=== PATIENT | female | born 1975 | race Caucasian/White ===

== ENCOUNTER 2016-09-30 15:57 | Emergency (ER) | payer OTHER ==
[~2016-09-30] VITALS: Ht 175.3 cm; Wt 126.0 kg
[~2016-09-30 15:57] MED LIST: BUPR-79 PO; DICL50TA3 PO; ESCI1TAB10 PO; HYDR25TA5 PO; NARA2.5T2 PO; NRN800 PO; TPM/50 PO
[2016-09-30 15:59] VITALS: TEMP 36.4; Ht 175.3 cm; Wt 126.0 kg
[2016-09-30] MEDS ORDERED: PROP20TA67 PO (16:13)
[2016-09-30] MEDS ORDERED: BENZ100C84 PO (16:13)
[2016-09-30] MEDS ORDERED: LEVO1TAB33 PO (16:13)
[2016-09-30] MEDS ORDERED: METHYLPREDNISOLONE 125 MG VIAL IV STA (16:26)
[2016-09-30] MEDS ORDERED: SODIUM CHLORIDE 0.9% 1000ML 1,000 ML IV ONE (16:30)
[2016-09-30] MEDS ORDERED: ALBUT/IPRATROP 3MG/0.5MG NEB 3 ML VIAL INH ONE (16:30)
--- NOTE | 2016-09-30 16:44 | DIAGNOSTIC IMAGING REPORT ---
TWO VIEW CHEST CLINICAL HISTORY: Cough and dyspnea. FINDINGS: PA and lateral chest radiographs are compared to study dated 01/19/2015 and correlated with chest CT dated 09/14/2016. The cardiomediastinal silhouette is unremarkable. The lungs and pleural spaces are clear. There is no pneumothorax. The bony thorax appears intact. IMPRESSION: No active disease in the chest. Electronically signed by: Zeus Stephen M.D. 09/30/2016 4:42 PM Dictated Date/Time: 09/30/2016 4:42 PM
[2016-09-30 17:16] LABS: BASO % 0.8 %; BASO ABS # 0.04 K/uL (0-0.2); COMPLETE YES; EOS % 7.4 %; IG% 0.4 %; LYMPH % 18.4 %; LYMPH ABS # 0.94 K/uL (1.2-3.4); MEAN CELL VOLUME 82.7 fL (80-100); MEAN CORPUSCULAR HEMOGLOBIN 29.5 pg (25-34); MEAN CORPUSCULAR HGB CONC 35.7 g/dl (32-36); MEAN PLATELET VOLUME 10.5 fL (7.4-10.4); MONO % 14.7 %; NEUT % 58.3 %; PLATELET COUNT 324 K/uL (130-400); RED BLOOD COUNT 5.08 M/uL (4.2-5.4); WHITE BLOOD COUNT 5.11 K/uL (4.8-10.8)
[2016-09-30 17:32] LABS: BUN/CREATININE RATIO 15.9 (10-20); CALCIUM 7.9 mg/dl (8.5-10.1); CREATININE 0.68 mg/dl (0.60-1.20); POTASSIUM 3.4 mmol/L (3.5-5.1)
[2016-09-30 17:35] LABS: ALB/GLOB RATIO 0.9 (0.9-2)
--- NOTE | 2016-09-30 18:47 | EMERGENCY ROOM VISIT NOTE ---
ED Visit Note First contact with patient: 16:10 This Patient was discussed with the physician Inseam Trimming Machine Operator, Antonino Villavicencio PA-C. The pertinent historical and physical exam findings were confirmed. I agree with the studies ordered and with the interpretations of these studies. I agree with the disposition and care plan.
[2016-09-30] MEDS ORDERED: PRED50TA PO (18:56)
[2016-09-30 19:39] VITALS: BP 116/55; PULSE 73; O2SAT 98
--- NOTE | 2016-09-30 23:31 | EMERGENCY ROOM VISIT NOTE ---
History First contact with patient: 16:10 Chief Complaint: RESPIRATORY PROBLEMS Stated Complaint: PNEUMONIA, DIFFICULTY BREATHING Nursing Triage Summary: SOB, throat feels tight. Denies asthma history. Was diagnosed on saturday with pneumonia and was put on meds. Cough with yellow sputum. Denies CP. History of Present Illness The patient is a 40 year old female who presents to the Emergency Room with complaints of chest tightness and shortness of breath. The patient was diagnosed with pneumonia 2 days ago as an outpatient. She was started on Levaquin, Ventolin, and Tessalon Perles. The patient has been taking her medications as prescribed. She states that today she has had a worsening cough with yellow sputum. No fevers or chills. She does not have distinct chest pain or pressure. She has been eating, drinking, and using the bathroom as normal. She rates her current discomfort a 7/10. Review of Systems More than 10 systems were reviewed and otherwise negative with the exception of history of present illness. Past Medical/Surgical History Medical Problems: (1) Benign hypertension (2) DEPRESSIVE DISORDER NEC (3) DIAB TOM WO COMP TYPE II OR NOS/NOT UNCONTROLLED Family History No pertinent family history Social History Smoking Status: Current Every Day Smoker Alcohol Use: none Drug Use: none Marital Status: Housing Status: lives with family Occupation Status: unemployed Current/Historical Medications Scheduled Benzonatate (Tessalon Perles), 1 CAP PO TID Bupropion (Wellbutrin Sr), 300 MG PO DAILY Diclofenac (Voltaren), 50 MG PO UD Escitalopram Oxalate (Lexapro), 20 MG PO DAILY Gabapentin (Gabapentin), 800 MG PO TID Hydrochlorothiazide (Hydrochlorothiazide), 25 MG PO DAILY Levofloxacin (Levaquin), 1 TAB PO DAILY Prednisone (Prednisone), 50 MG PO DAILY Propranolol (Inderal), 1 TAB PO QID Topiramate (Topamax), 100 MG PO BID Allergies Coded Allergies: No Known Allergies (Verified , 01/19/15) Physical Exam Vital Signs Date Time Temp Pulse Resp B/P Pulse Ox O2 Delivery O2 Flow Rate FiO2 09/30/16 19:39 73 18 116/55 98 09/30/16 17:38 76 24 119/76 98 Room Air 09/30/16 16:09 77 142/93 95 09/30/16 16:04 96 Room Air 09/30/16 15:59 36.4 89 18 96 Room Air Pain Rating (0-10): 1.0 Physical Exam VITALS: Vitals are noted on the nurse's note and reviewed by myself. Vital signs stable. GENERAL: Well-developed, well-nourished, white female, who is in no acute distress and resting comfortably. Patient is cooperative with the examination. HEAD: Normocephalic atraumatic. EARS: External ear normal. External auditory canals clear, tympanic membranes pearly rosado without erythema or effusion bilaterally. EYES: Pupils equal round and reactive to light and accommodation. Conjunctivae without injection, sclerae without icterus. Extraocular movements intact. NOSE: Patent, turbinates without inflammation or discharge. MOUTH: Mucous membranes moist. Tonsils are not enlarged. Pharynx without erythema, blood, or exudate. Uvula midline. Airway patent. NECK: Supple without nuchal rigidity. No lymphadenopathy. No thyromegaly. Cervical spine is nontender. HEART: Regular rate and rhythm without murmurs gallops or rubs. LUNGS: Scant rhonchi appreciated in the right side mahajan. No distinct crackles appreciated. ABDOMEN: Positive normal bowel sounds x 4. Soft, nontender, without masses or organomegaly. No guarding or rebound tenderness. MUSCULOSKELETAL: No muscle atrophy, erythema, or edema noted. Full range of motion without joint tenderness in all extremities. Medical Decision & Procedures ER Provider Diagnostic Interpretation: TWO VIEW CHEST CLINICAL HISTORY: Cough and dyspnea. FINDINGS: PA and lateral chest radiographs are compared to study dated 01/19/2015 and correlated with chest CT dated 09/14/2016. The cardiomediastinal silhouette is unremarkable. The lungs and pleural spaces are clear. There is no pneumothorax. The bony thorax appears intact. IMPRESSION: No active disease in the chest. Laboratory Results 09/30/16 16:45 Red Blood Count 5.08, Mean Corpuscular Volume 82.7, Mean Corpuscular Hemoglobin 29.5, Mean Corpuscular Hemoglobin Concent 35.7, Mean Platelet Volume 10.5, Neutrophils (%) (Auto) 58.3, Lymphocytes (%) (Auto) 18.4, Monocytes (%) (Auto) 14.7, Eosinophils (%) (Auto) 7.4, Basophils (%) (Auto) 0.8, Neutrophils # (Auto ) 2.98, Lymphocytes # (Auto) 0.94, Monocytes # (Auto) 0.75, Eosinophils # (Auto ) 0.38, Basophils # (Auto) 0.04 09/30/16 16:45 Test 09/30/16 16:45 09/30/16 17:05 09/30/16 17:44 White Blood Count 5.11 K/uL (4.8-10.8) Red Blood Count 5.08 M/uL (4.2-5.4) Hemoglobin 15.0 g/dL (12.0-16.0) Hematocrit 42.0 % (37-47) Mean Corpuscular Volume 82.7 fL (80-100) Mean Corpuscular Hemoglobin 29.5 pg (25-34) Mean Corpuscular Hemoglobin Concent 35.7 g/dl (32-36) Platelet Count 324 K/uL (130-400) Mean Platelet Volume 10.5 fL (7.4-10.4) Neutrophils (%) (Auto) 58.3 % Lymphocytes (%) (Auto) 18.4 % Monocytes (%) (Auto) 14.7 % Eosinophils (%) (Auto) 7.4 % Basophils (%) (Auto) 0.8 % Neutrophils # (Auto) 2.98 K/uL (1.4-6.5) Lymphocytes # (Auto) 0.94 K/uL (1.2-3.4) Monocytes # (Auto) 0.75 K/uL (0.11-0.59) Eosinophils # (Auto) 0.38 K/uL (0-0.5) Basophils # (Auto) 0.04 K/uL (0-0.2) RDW Standard Deviation 38.4 fL (36.4-46.3) RDW Coefficient of Variation 12.7 % (11.5-14.5) Immature Granulocyte % (Auto) 0.4 % Immature Granulocyte # (Auto) 0.02 K/uL (0.00-0.02) D-Dimer 200 ug/L FEU (0-500) Anion Gap 13.0 mmol/L (3-11) Est Creatinine Clear Calc Drug Dose 158.1 ml/min Estimated GFR () 127.7 Estimated GFR (Non- 110.2 BUN/Creatinine Ratio 15.9 (10-20) Calcium Level 7.9 mg/dl (8.5-10.1) Total Bilirubin 0.3 mg/dl (0.2-1) Aspartate Amino Transf (AST/SGOT) 14 U/L (15-37) Alanine Aminotransferase (ALT/SGPT) 21 U/L (12-78) Alkaline Phosphatase 96 U/L (45-117) Total Protein 7.0 gm/dl (6.4-8.2) Albumin 3.3 gm/dl (3.4-5.0) Globulin 3.7 gm/dl (2.5-4.0) Albumin/Globulin Ratio 0.9 (0.9-2) Bedside Lactic Acid Venous 0.72 mmol/L (0.90-1.70) Bedside Troponin I 0.000 ng/ml (0-0.045) Medications Administered Medications (Trade) Dose Ordered Sig/Martin Route Start Time Stop Time Status Last Admin Dose Admin Sodium Chloride (Nss 1000ml) 1,000 ml @ 999 mls/hr Q1H1M ONCE IV 09/30/16 16:30 09/30/16 17:30 DC 09/30/16 16:30 999 MLS/HR Methylprednisolone Sodium Succinate (Solu-Medrol IV) 125 mg NOW STAT IV 09/30/16 16:26 09/30/16 16:29 DC 09/30/16 16:48 125 MG Albuterol/ Ipratropium (Duoneb) 3 ml NOW ONCE INH 09/30/16 16:30 09/30/16 16:31 DC 09/30/16 16:43 3 ML ED Course Physical exam and history were performed. Nursing notes and EMR were reviewed. Patient appears to have worsening chest tightness and shortness of breath after an outpatient diagnosis of pneumonia. On examination the patient does not appear toxic, although she does have some right-sided rhonchi. IV access was established and labs were obtained. The patient was gently hydrated with normal saline and was given 125 mg IV Solu-Medrol. She was also given a DuoNeb treatment here in the department. Chest x-ray was performed. She was placed on a ekg monitor. Her EKG was normal sinus rhythm at 71 bpm without ischemia or ectopy. The patient's blood work as above and was reviewed. She does not have a significant elevated white blood cell count, anemia, bandemia, or gross electrolyte imbalance. Lipase and transaminases are nondiagnostic. Troponin is negative. D-dimer is also negative. Chest x-ray does not show acute findings. Her remaining blood work is fairly unremarkable. The patient was reevaluated multiple times throughout the course of her stay. She had significant improvement of her breathing and chest tightness after the DuoNeb and Solu-Medrol. The case was discussed with my attending physician, Dr. Wade, who also and apparently evaluated the patient. We feel that she is stable for discharge home. I will provide her a short course of steroids, as this appeared to have helped her the most. I did discuss the possible side effects of taking this medication with Levaquin, and instructed her to avoid excess physical activity for the next one to 2 weeks. I also recommended the patient follow-up with her primary care physician this week for further management. She was otherwise invited back to the ER with any new, worsening, or concerning symptoms. The patient was pleased with plan of care and rated her discomfort a 2/10 at the time of departure. The chart was completed utilizing [employer] Speech Voice Recognition Software. Grammatical errors, random word insertions, pronoun errors, and incomplete sentences are an occasional consequence of this system due to software limitations, ambient noise, and hardware issues. Any formal questions or concerns about the content, text, or information contained within the body of this dictation should be directly addressed to the provider for clarification. . Medical Decision Differential diagnosis: Etiologies such as infections, reactive airway disease, pneumonia, pneumothorax , COPD, CHF, cardiac ischemia, pulmonary embolism, musculoskeletal, gastrointestinal, as well as others were entertained. Impression Primary Impression: Acute bronchitis Departure Information Dispostion Home / Self-Care Condition GOOD Prescriptions Prednisone (Prednisone) 50 Mg Tab 50 MG PO DAILY for 4 Days, #4 TAB Prov: Antonino Villavicencio PA-C 09/30/16 Forms HOME CARE DOCUMENTATION FORM, IMPORTANT VISIT INFORMATION Patient Instructions My [facility] Additional Instructions You were seen and evaluated today on an emergency basis only. This is not a substitute for, or an effort to provide, complete comprehensive medical care. It is not possible to recognize and treat all injuries or illnesses in a single emergency department visit. For this reason it is recommended that you followup with your primary care physician later this week for ongoing care and evaluation. Continue your medications as previously prescribed. Take prednisone 50 mg daily starting tomorrow. Avoid excess physical activity while on Levaquin and prednisone. You are welcome to return to the emergency department anytime with new, worsening, or concerning symptoms.
[2016-11-06] MEDS ORDERED: TOPI200T14 PO (08:24)
[2017-01-09] MEDS ORDERED: PRLSR20 PO (13:14)
[2017-01-14] MEDS ORDERED: DICL50TA3 PO (14:59)
[2017-01-14] MEDS ORDERED: CRAN500C2 PO (14:59)
[2017-01-14] MEDS ORDERED: MELA1TAB9 PO (14:59)
[2017-01-30] MEDS ORDERED: POTA10CA28 PO (13:22)
== END 2016-09-30 19:42 | disposition home or self-care (01) ==
LOC: C.EDB 15:57 → C.EDC 19:42
DX: J20.9 Acute bronchitis, unspecified (principal); I10 Essential (primary) hypertension; F32.9 Major depressive disorder, single episode, unspecified; E11.9 Type 2 diabetes mellitus without complications; F17.210 Nicotine dependence, cigarettes, uncomplicated; Z79.899 Other long term (current) drug therapy

== ENCOUNTER 2016-11-20 10:07 | Inpatient (IN) | payer OTHER ==
[~2016-11-20] VITALS: Ht 175.3 cm; Wt 122.8 kg
[~2016-11-20 10:07] MED LIST changes: -NARA2.5T2 PO; +TOPI200T14 PO; -TPM/50 PO
--- NOTE | 2016-11-20 10:37 | EMERGENCY ROOM VISIT NOTE ---
History Report prepared by Malcolm: Safia Colon Under the Supervision of: Dr. Zeus Abreu M.D. First contact with patient: 10:20 Chief Complaint: MENTAL HEALTH EVALUATION Stated Complaint: SUICIDAL History of Present Illness The patient is a 41 year old female who presents to the Emergency Room with complaints of persistent suicidal ideation that began this past week. Per the patient's , the patient cheated on him last week and states that they have been fighting over the incident. He states that he noticed that the patient has been acting strange since then and hasn't been talking right. The patient's states that the patient always carried a gun with her, and he states that he took the gun from her several days ago. He states that the patient did not realize that the gun was missing until recently. The patient's additionally notes that the patient has had increased tension with her family which has attributed to her depression and suicidal ideation. The patient admits to suicidal ideation, stating that she would use a firearm to harm herself. She notes a history of anxiety and depression. The patient notes a history of hypertension, but denies any history of diabetes or thyroid problems. She notes that she is on medication for both her depression and hypertension. The patient's states that the patient made the decision to come here and the patient states that she was additionally encouraged by her therapist at [facility]. Source of History: patient Onset: this past week Position: other (global) Quality: other (suicidal ideation) Timing: other (persistent) Modifying Factors (Worsening): other (family tension, cheating on ) Review of Systems See HPI for pertinent positives & negatives. A total of 10 systems reviewed and were otherwise negative. Past Medical & Surgical Medical Problems: (1) Benign hypertension (2) DEPRESSIVE DISORDER NEC (3) DIAB TOM WO COMP TYPE II OR NOS/NOT UNCONTROLLED Family History Cancer Diabetes mellitus FH: heart disease FHx: lung disease Hypertension Kidney disease Kidney stones Social History Smoking Status: Current Every Day Smoker Alcohol Use: none Drug Use: none Marital Status: Housing Status: lives with family Occupation Status: unemployed Current/Historical Medications Scheduled Bupropion Hcl (Wellbutrin Xl), 1 TAB PO DAILY Diclofenac (Voltaren), 50 MG PO DAILY Escitalopram Oxalate (Lexapro), 20 MG PO DAILY Gabapentin (Gabapentin), 800 MG PO TID Hydrochlorothiazide (Hydrochlorothiazide), 25 MG PO DAILY Naratriptan Hcl (Amerge), MG PO DAILY Topiramate (Topamax), 200 MG PO DAILY Allergies Coded Allergies: No Known Allergies (Verified , 11/20/16) Physical Exam Vital Signs Date Time Temp Pulse Resp B/P Pulse Ox O2 Delivery O2 Flow Rate FiO2 11/20/16 12:21 62 17 113/90 97 Room Air 11/20/16 10:09 36.6 74 18 144/90 97 Room Air Physical Exam GENERAL: Patient is in no acute distress. HEENT: No acute trauma, normocephalic atraumatic, mucous membranes moist, no nasal congestion, no scleral icterus. NECK: No stridor, no adenopathy, no meningismus, trachea is midline. LUNGS: Clear to auscultation bilaterally, no wheeze, no rhonchi, breath sounds equal. HEART: Without murmurs gallops or rubs, regular rate and rhythm. ABDOMEN: Soft, nontender, bowel sounds positive, no hernias, no peritonitis. EXTREMITIES: No cyanosis or edema, full range of motion of all the joints without pain or difficulty, no signs for acute trauma. NEUROLOGIC: Oriented x 3, no acute motor or sensory deficits, no focal weakness. SKIN: No rash, no jaundice, no diaphoresis. PSYCH: Cooperative, voluntary, admits to suicidal ideation with a plan to kill herself with a gun. Medical Decision & Procedures Laboratory Results 11/20/16 10:52 11/20/16 10:52 Test 11/20/16 10:25 11/20/16 10:52 11/20/16 11:20 Urine Test NEG (NEG) Red Blood Count 4.93 M/uL (4.2-5.4) Mean Corpuscular Volume 82.8 fL (80-100) Mean Corpuscular Hemoglobin 28.8 pg (25-34) Mean Corpuscular Hemoglobin Concent 34.8 g/dl (32-36) RDW Standard Deviation 39.3 fL (36.4-46.3) RDW Coefficient of Variation 13.1 % (11.5-14.5) Mean Platelet Volume 10.0 fL (7.4-10.4) Anion Gap 11.0 mmol/L (3-11) Est Creatinine Clear Calc Drug Dose 129.5 ml/min Estimated GFR () 105.3 Estimated GFR (Non- 90.8 BUN/Creatinine Ratio 16.0 (10-20) Calcium Level 8.6 mg/dl (8.5-10.1) Total Bilirubin 0.6 mg/dl (0.2-1) Aspartate Amino Transf (AST/SGOT) 18 U/L (15-37) Alanine Aminotransferase (ALT/SGPT) 31 U/L (12-78) Alkaline Phosphatase 88 U/L (45-117) Total Protein 7.3 gm/dl (6.4-8.2) Albumin 3.6 gm/dl (3.4-5.0) Globulin 3.7 gm/dl (2.5-4.0) Albumin/Globulin Ratio 1.0 (0.9-2) Thyroid Stimulating Hormone (TSH) 0.388 uIu/ml (0.300-4.500) Salicylates Level < 1.7 mg/dl (2.8-20) Acetaminophen Level < 2 ug/ml (10-30) Ethyl Alcohol mg/dL < 3.0 mg/dl (0-3) Urine Color DK YELLOW Urine Appearance CLOUDY (CLEAR) Urine pH 6.5 (4.5-7.5) Urine Specific [place] 1.020 (1.000-1.030) Urine Protein NEG (NEG) Urine Glucose (UA) NEG (NEG) Urine Ketones NEG (NEG) Urine Occult Blood 2+ (NEG) Urine Nitrite NEG (NEG) Urine Bilirubin NEG (NEG) Urine Urobilinogen NEG (NEG) Urine Leukocyte Esterase TRACE (NEG) Urine WBC (Auto) 1-5 /hpf (0-5) Urine RBC (Auto) 5-10 /hpf (0-4) Urine Hyaline Casts (Auto) 1-5 /lpf (0-5) Urine Epithelial Cells (Auto) >30 /lpf (0-5) Urine Bacteria (Auto) NEG (NEG) Urine Opiates Screen NEG (NEG) Urine Methadone, Qualitative NEG (NEG) Urine Barbiturates NEG (NEG) Urine Phencyclidine (PCP) Level NEG (NEG) Ur Amphetamine/Methamphetamine NEG (NEG) MDMA (Ecstasy) Screen POS (NEG) Urine Benzodiazepines Screen NEG (NEG) Urine Cocaine Metabolite NEG (NEG) Urine Marijuana (THC) NEG (NEG) Laboratory results reviewed by me. ED Course 1021: The patient was evaluated in room A8. A complete history and physical exam was performed. 1158: The patient is medically clear to be evaluated further. 1236: Per the psych community case manager, the patient has been accepted to [facility] for further evaluation. Medical Decision The patient is a 41 year old female who presents to the ED with complaints of suicidal ideation. Differential diagnoses considered include suicidal ideation , thyroid disorder, situational depression, electrolyte imbalance, drug or alcohol abuse. There is no leukocytosis or concerning anemia. No significant electrolyte abnormality, kidney failure, hepatitis. The patient appears to be in a euthyroid state. A urinalysis does not suggest infection. testing is negative. Aspirin, Tylenol and alcohol level levels are all undetectable. Urine tox shows possible ecstasy. The patient was felt to be medically clear for a psychiatric evaluation. She was seen by our psychiatric community case manager. The patient will be brought into the hospital at this facility. She will be a voluntary admission and will be admitted to the psychiatry floor. She has been cooperative during her ER stay. Impression Primary Impression: Suicidal ideation Scribe Attestation The scribe's documentation has been prepared under my direction and personally reviewed by me in its entirety. I confirm that the note above accurately reflects all work, treatment, procedures, and medical decision making performed by me. Departure Information Dispostion Mental Health Acute Care Referrals No Doctor, Assigned (PCP)
[2016-11-20] MEDS ORDERED: LXP/20 PO (11:03)
[2016-11-20 11:14] LABS: HEMATOCRIT 40.8 % (37-47); MEAN CELL VOLUME 82.8 fL (80-100); MEAN CORPUSCULAR HEMOGLOBIN 28.8 pg (25-34); MEAN CORPUSCULAR HGB CONC 34.8 g/dl (32-36); PLATELET COUNT 321 K/uL (130-400); RED BLOOD COUNT 4.93 M/uL (4.2-5.4); WHITE BLOOD COUNT 5.39 K/uL (4.8-10.8)
[2016-11-20 11:37] LABS: URINE APPEARANCE CLOUDY (CLEAR); URINE BILIRUBIN NEG (NEG); URINE COLOR DK YELLOW; URINE EPITHELIAL CELL AUTO >30 /lpf (0-5); URINE NITRITE NEG (NEG); URINE PH 6.5 (4.5-7.5); UROBILINOGEN NEG (NEG); ZZUR CULT IF INDIC CLEAN CATCH NO
[2016-11-20 11:37] LABS: CALCIUM 8.6 mg/dl (8.5-10.1); CREATININE 0.81 mg/dl (0.60-1.20); POTASSIUM 3.2 mmol/L (3.5-5.1)
[2016-11-20 11:39] LABS: ACETAMINOPHEN < 2 ug/ml (10-30)
[2016-11-20 11:42] LABS: MANUAL MICROSCOPIC REQUIRED? NO; REVIEW REQ? NO
[2016-11-20 11:47] LABS: THYROID STIMULATING HORMONE 0.388 uIu/ml (0.300-4.500)
[2016-11-20 12:07] LABS: BENZODIAZEPINE, URINE NEG (NEG); COCAINE,URINE NEG (NEG); PHENCYCLIDINE, URINE NEG (NEG)
[2016-11-20] MEDS ORDERED: MAGNESIUM HYDROXIDE SUSP 30 ML UDC PO PRN (12:45)
[2016-11-20] MEDS ORDERED: hydrOXYzine HCL 25 MG TAB PO PRN ×2 (12:45)
[2016-11-20] MEDS ORDERED: BISMUTH SUBSALICYLATE PER ML OMNICELL CHARGE PO PRN (12:45)
[2016-11-20] MEDS ORDERED: ALUMINUM/MAGNESIUM SUSP 30 ML UDC PO PRN (12:45)
[2016-11-20] MEDS ORDERED: SODIUM CHLORIDE 0.65% NA SOLN 45 ML (OCEAN) PRN (12:45)
[2016-11-20 13:29] VITALS: O2SAT 97
[2016-11-20] MEDS ORDERED: DICL50TA3 PO (14:14)
[2016-11-20] MEDS ORDERED: NARA2.5T2 PO (14:24)
[2016-11-20] MEDS ORDERED: BUPRTAB51 PO (14:25)
[2016-11-20 14:26] VITALS: BP 133/85; PULSE 74; TEMP 36.6; Ht 175.3 cm; Wt 122.8 kg
--- NOTE | 2016-11-20 15:01 | HISTORY & PHYSICAL EXAMINATION ---
DATE OF ADMISSION: 11/20/2016 IDENTIFYING DATA: Moni Maria is a 41-year-old woman from [place], [place], admitted to our unit voluntarily with acute depression related to recently having an affair, telling her and him wanting her to move out. Information is gathered from the patient and considered to be reliable. CHIEF COMPLAINT: "I cheated on my ." HISTORY OF PRESENT ILLNESS: Moni Maria is a 41-year-old woman who has long been in treatment with Dr. Victor Manuel Jackson at [facility] for depression and anxiety. She began seeing him after her father when she was 20 and says "has been on meds ever since." She has most recently been on Lexapro and Wellbutrin and felt that that was generally keeping her stable for the most part. Unfortunately, about 2 weeks or more ago, the patient had an affair. She had the affair with someone that she had a previous affair with when she was from her years ago. After she had the affair at this time, she decided to tell her , which occurred about 2 weeks ago. He was extremely outraged and told her to get out. She also told her 2 other children because she was sure that they heard her demand that she get out. Since then, her older children have not been talking with her. She has been trying to talk with her , but he has not been engaging and continues to be quite angry. She states that she has no idea why she pursued the affair other than saying that her mother, with whom she has chronically poor relationship, recently "chose a man over me again." She also says that she has no girlfriends and she has recently had no one to talk to and apparently this other man, who is somebody that she was talking to. She says her self-esteem has been very low and that contributes to her not wanting to have girlfriends, as her in the past has been attracted to her girlfriends who are more slender and prettier than she is. She adamantly denies that he, however, has ever had an affair. Last weekend, she admits that she and her had been arguing. She had gone to her purse to look for her gun. She has always carried a gun and has a permit to carry concealed. She could not find it, got upset that she had lost it and went to ask her if he had seen it. He indicated that he had, had taken it and locked it up. She lied to him at that point saying that she was not suicidal, but just worried that she had lost it, when in reality she had gone looking for it because she had thought about killing herself. She has tried to continue to work. Yesterday, she had tried to talk with her again. She was trying to explain her feelings, but he misperceived her statements as blaming him for the affair saying she had no one to talk to. He kept asking why she would do it and she said that she could not give him that answer. Today, she tried to go to work, but could not get through the day, could not stop crying. She also had an appointment with her therapist, Jennifer Crawley, recently who recommended inpatient as well. She has only seen Jennifer Crawley once. Her mood on average prior to the affair had been rated 6/10, but since having the affair and revealing it to her , she states her mood is of 1/10. At the time I see the patient, she is acutely depressed, hanging her head in her hands and crying. She admits to suicidal thoughts with a plan to use a gun. She reports her sleep has been disturbed. "I used to sleep a lot" and now sleeps 3-4 hours of broken sleep per night. Her appetite has been down and she says she did not eat at all for 4 days, but now has started to eat about 1 meal per day. Her anxiety is generally okay, although has a history of more significant anxiety in the past. She denies any auditory or visual hallucinations. She admits to cutting her thigh, on Saturday, in order to feel the same pain that she had inflicted on her with the affair. She denies any discrete episodes of euphoric mood, sleeplessness or pleasure seeking behaviors that would be congruent with a bipolar disorder. CURRENT MEDICATIONS: 1. Wellbutrin-XL 300 mg daily. 2. Lexapro 20 mg daily. 3. Gabapentin 800 mg t.i.d. 4. Hydrochlorothiazide 25 mg daily. 5. Topamax 200 mg daily. 6. Diclofenac 50 mg daily for migraines. 7. Emerge 2.5 mg daily p.r.n. migraine. PAST PSYCHIATRIC HISTORY: As per the [facility], she has seen Dr. Jackson since about the age of 20 or 21. She only saw Jennifer Crawley for therapy once. She has never been hospitalized for mental health reasons. She has never made a suicide attempt. There is no evidence of violence to others in the last 6 months, but evidence of violence to self by way of cutting her thigh on Saturday. ACCESS TO GUNS: Yes, locked, recently changed the combination. PRIOR MEDICATION TRIALS: The patient says she has been tried on lots of meds, but cannot remember what. ALLERGIES: NKDA. PAST MEDICAL HISTORY: 1. Class 3 obesity with a BMI of 40.0. 2. Migraines. 3. Lumbar degenerative disk disease, status post multiple surgeries. 4. Hypertension. 5. LMP -- started today. FAMILY HISTORY: Positive for mother with bipolar, PTSD, depression and anxiety. She denies a family history for substance use issues or suicide. Medically, maternal and paternal grandmothers have diabetes and brother is obese, but she denies family history for hypertension, cardiovascular disease or dyslipidemia. SUBSTANCE USE HISTORY: The patient currently smokes 1 pack of cigarettes daily. She will consume 1 cup of coffee per day. Her alcohol use is described as "rare," which means about 2 times per year. She denies the use of street drugs, organic substances, inhalant, abuse of over the counter medicines or prescription medicines now or at any time in the past. SOCIAL HISTORY: The patient grew up locally. She was raised by her mother and father. She has 1 brother and 1 sister. She is a high school graduate and went on to attend about 2 years of college, but did not graduate. 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 She has been to her since 1997. They have 3 children, ages 20, 18 and 13. Her oldest is in college at [employer]. She does not consider herself to be a spiritual individual. There are no legal concerns. Psychological trauma history is denied. MENTAL STATUS EXAMINATION: Morbidly obese woman dressed in hospital gowns, with dyed purple hair, wearing glasses. She is seated during the interview and leans her elbows on her knees and hangs her head crying. Eye contact therefore, is minimal. Motor behavior is significant for mild agitation. Speech is of normal rate, volume, and tone. Affect is tearful. Mood is depressed. Thought process is organized and goal directed. She denies thought disorder in the form of hallucinations or delusions. She endorses suicidal thoughts with a plan to shoot herself, but denies homicidal ideation. Today, she is fully oriented. Memory functions are intact. Fund of knowledge is intact. Intelligence is estimated to be average. Insight and judgment are impaired. VITAL SIGNS: Temperature 36.6, pulse 62, respirations 17, blood pressure 113/90, and pulse ox 97% on room air. LABORATORIES: 1. CBC -- within normal limits. 2. Chem profile -- within normal limits with the exception of potassium low at 3.2. 3. TSH -- within normal limits at 0.388. 4. Toxicology -- positive for MDMA, which is usually a false positive. 5. Urinalysis -- positive for 2+ occult blood, trace leukocyte esterase, RBCs and epithelials. 6. Urine test -- negative. REVIEW OF SYSTEMS: The patient recently completed a course of antifungal for a fungal laryngitis. She has healing superficial cuts to her left thigh. She also reports numbness and tingling in her left toe, status post lumbar back surgery. A minimum of 10 systems has been reviewed and otherwise found to be negative. PHYSICAL EXAMINATION: Exam performed by Dr. Abreu in the Emergency Room has been reviewed and accepted for our purposes here in the mental health unit. PATIENT'S STRENGTHS AND NEEDS: 1. Strengths -- willingness to engage in treatment and love of her family. 2. Needs -- to learn additional healthy coping strategies. RISK ASSESSMENT: 1. Risk factors -- , medical problems, chronic mental illness, acute stress of affair, and anxiety. 2. Protective factors -- has secured guns, is employed, has children in the home, and no history of suicide attempts or hospitalizations. IMPRESSION: A 41-year-old woman admitted to the hospital with an acute depression subsequent to having an affair and telling her . He has been very angry and not sure how they are going to proceed. She believes that her medications had been keeping her stable up until that time and at this point, I am going to recommend we continue those and work on her stressors from the therapy point of view. We will encourage her to have a family meeting with her to process and how they will move forward, although she is hesitant to do that at this point. We will coordinate with her outpatient providers, Dr. Jackson and Jennifer Crawley. At this time, however, she requires inpatient mental health treatment due to the severity of her condition and the risk for self-harm if discharged. DIAGNOSES: 1. Major depressive disorder, recurrent, severe, without psychotic features. 2. Generalized anxiety disorder. 3. Morbid obesity with a BMI of 40.0. 4. Hypertension. 5. Migraines. PLAN: Has been reviewed with Dr. Nette Brower. 1. Depression. a. Continue Wellbutrin-XL 300 mg daily and Lexapro 20 mg daily. b. Obtain records from and coordinate care with Dr. Jackson and Jennifer Crawley. c. Family meeting. d. Q. 15 minute checks for safety. e. Encourage participation in group and individual counseling. f. Assist the patient to learn and utilize additional healthy coping strategies. g. We will need to confirm with that guns have been secured. 2. Migraines. a. Continue home medications. 3. Hypertension. a. Continue home medications and monitor BP. 4. Morbid obesity. a. Consider dietary consult for food choices and weight loss. b. Encourage physical activity. INITIAL HOSPITAL CARE: [id number].
[2016-11-20] MEDS: GABAPENTIN 800 MG TAB PO SCH (21:30)
[2016-11-20] MEDS ORDERED: NURSING VERBAL MED ORDER ONE (22:00)
[2016-11-20] MEDS ORDERED: TOPI100T20 PO (22:03)
[2016-11-20] MEDS: TOPIRAMATE 100 MG TAB PO SCH (22:05)
[2016-11-21 06:37] VITALS: BP_SYST 116; BP_SYST 138; BP_DIAS 76; BP_DIAS 88; PULSE 74; PULSE 80; TEMP 36.9
[2016-11-21] MEDS: BuPROPion SR 150 MG TABCR PO SCH (07:46)
[2016-11-21] MEDS: HYDROCHLOROTHIAZIDE 25 MG TAB PO SCH (07:46)
[2016-11-21] MEDS: TOPIRAMATE 100 MG TAB PO SCH ×2 (07:46→21:56)
[2016-11-21] MEDS: ESCITALOPRAM OXALATE 20 MG TAB PO SCH (07:46)
[2016-11-21] MEDS: GABAPENTIN 800 MG TAB PO SCH ×3 (07:46→21:56)
[2016-11-21] MEDS: NICOTINE POLACRILEX 2 MG GUM MT PRN ×2 (08:47→18:06)
[2016-11-21] MEDS ORDERED: TOPIRAMATE 100 MG TAB PO SCH (09:00)
[2016-11-21] MEDS: ACETAMINOPHEN 325 MG TAB PO PRN ×2 (11:06→16:08)
--- NOTE | 2016-11-21 13:16 | Psychiatric Progress Notes ---
Progress Note Date of Service Nov 21, 2016. Interval History Moni Maria is a 41-year-old woman from [place], [place], admitted to our unit voluntarily with suicidality and self-inflicted lacerations related to recently having an affair, telling her and him wanting her to move out. Chief Complaint "Good, a little down". Subjective Patient was seen & assessed interval progress reviewed with Treatment Team. Staff report she submitted a 72 hour notice requesting to withdrawal from treatment. She says she is going to groups and they have been helpful, particularly the one on anger management, stating that her has anger problems and she wants to pass the information on to him. She denies suicidality today, stating that she did have suicidal thoughts multiple times in the week prior to admission, and admits to thoughts to shoot herself and access to a gun, which she keeps in her purse. She states that her has already taken all of the guns, locked them in the safe, and changed the combination so that she won't have access. She says her mood is much better today after talking to her yesterday, saying he now wants her to come back home and they will try to work things out. A have a meeting scheduled with the social services counselor today. She is now wanting to expedite her discharge, stating that she thought she was "just coming to the ER for a med change." She reports she has been functioning so poorly at work, that she is making errors, and they encouraged her to get treatment. She says that yesterday "I was extremely emotional, it was a bad day." She did not eat at all yesterday, but ate breakfast today. She had good sleep last night, and is planning to attend groups today. She has a family meeting scheduled with her today, and is hoping to be discharged in time to attend her outpatient appointments on Saturday. He is improved from admission. Sleep Information Total Hours of Sleep: 7.25 Meal Information Percent of Breakfast Consumed: 100 Percent of Dinner Consumed: 0 Mental Status Exam During interview pt is: alert and oriented, cooperative Appearance: appropriately dressed, appropriately groomed, other (short hair dyed purple, obese, wearing glasses, nose ring, tattoo on left hand, long manicured fingernails.) Eye contact is: good Motor behavior is: no abnormal motor movements Speech: normal in rate, rhythm & volume Affect: anxious Mood is: other ("good, a little down") Thought process: goal directed Thought content: preoccupation (with discharge), reality based without delusions, other (minimizes suicidality and presenting symptoms) Suicidal thought are: denied Homicidal thoughts are: denied Hallucinations: denies auditory, denies visual Cognition: memory grossly intact, attention grossly intact, language grossly intact Intelligence estimated to be: average Insight: impaired Judgement: impaired Impression RISK ASSESSMENT: 1. Risk factors -- , medical problems, chronic mental illness, acute stress of affair, anxiety, SI with plan and access to the means, selg injury by cutting. 2. Protective factors -- has secured guns, is employed, has children in the home, and no history of suicide attempts or hospitalizations. IMPRESSION: A 41-year-old woman admitted to the hospital with an acute depression subsequent to having an affair and telling her . He has been very angry and not sure how they are going to proceed. She believes that her medications had been keeping her stable up until that time and at this point, I am going to recommend we continue those and work on her stressors from the therapy point of view. We will encourage her to have a family meeting with her to process and how they will move forward, although she is hesitant to do that at this point. We will coordinate with her outpatient providers, Dr. Jackson and Jennifer Crawley. At this time, however, she requires inpatient mental health treatment due to the severity of her condition and the risk for self-harm if discharged. DIAGNOSES: 1. Major depressive disorder, recurrent, severe, without psychotic features. 2. Generalized anxiety disorder. 3. Morbid obesity with a BMI of 40.0. 4. Hypertension. 5. Migraines. Plan (1) Suicidal ideation 15 minute checks for safety. Encourage participation in group and individual counseling. Assist the patient to learn and utilize additional healthy coping strategies. We will need to confirm with that guns have been secured. 11/21 - denying SI, submitted 72 hour notice, family meeting with today. (2) Depression Continue Wellbutrin-XL 300 mg daily and Lexapro 20 mg daily. Obtain records from and coordinate care with Dr. Jackson and Jennifer Crawley. (3) Obesity Consider dietary consult for food choices and weight loss. Encourage physical activity. (4) Migraine Continue home medications. (5) Benign hypertension Continue home medications and monitor BP. (6) Nicotine abuse Smoking cessation information offered and refused. Gum and patch prn for cravings. Discharge / Aftercare Planning Primary Care Physician: Name: Ander Gomez Phone Number: [phone] Psychiatrist: Name: Dr Monte Phone Number: [phone] Date of Appointment: Nov 23, 2016 Time of Appointment: 10:00 Therapist: Name: Jennifer Mccauley at [facility] Phone Number: Date of Appointment: Nov 23, 2016 Time of Appointment: 4:00 Payroll Examiner: Name: trey Visit Code E&M Code: [id number] Data Vital Signs Last 24 Hrs: Date Time Temp Pulse Resp B/P Pulse Ox O2 Delivery O2 Flow Rate FiO2 11/21/16 06:37 36.9 74 18 116/76 80 138/88 11/20/16 14:26 36.6 74 16 133/85 11/20/16 13:29 62 17 113/90 97 Meds Administered Last 24 Hrs: Meds Administered (Past 24Hrs) Medications (Trade) Dose Ordered Sig/Martin Route Start Time Stop Time Status Last Admin Dose Admin Acetaminophen (Tylenol Tab) 650 mg Q4H PRN PO 11/20/16 12:45 12/20/16 12:44 11/21/16 11:06 650 MG Bupropion HCl (Wellbutrin-Sr Tab) 300 mg DAILY PO 11/21/16 09:00 12/21/16 08:59 11/21/16 07:46 300 MG Escitalopram Oxalate (Lexapro Tab) 20 mg DAILY PO 11/21/16 09:00 12/21/16 08:59 11/21/16 07:46 20 MG Gabapentin (Neurontin Tab) 800 mg TID PO 11/20/16 22:00 12/20/16 21:59 11/21/16 07:46 800 MG Hydrochlorothiazide (Hydrochlorothiazide Tab) 25 mg DAILY PO 11/21/16 09:00 12/21/16 08:59 11/21/16 07:46 25 MG Nicotine Polacrilex (Nicorette 2MG Gum) 1 piece Q1H PRN MT 11/20/16 15:00 12/20/16 14:59 11/21/16 08:47 1 PIECE Topiramate (Topamax Tab) 100 mg BID PO 11/20/16 22:15 12/20/16 22:14 11/21/16 07:46 100 MG
[2016-11-22 06:46] VITALS: BP_SYST 113; BP_SYST 122; BP_DIAS 74; BP_DIAS 87; PULSE 64; PULSE 69; TEMP 36.8
[2016-11-22] MEDS: TOPIRAMATE 100 MG TAB PO SCH (08:17)
[2016-11-22] MEDS: BuPROPion SR 150 MG TABCR PO SCH (08:17)
[2016-11-22] MEDS: HYDROCHLOROTHIAZIDE 25 MG TAB PO SCH (08:17)
[2016-11-22] MEDS: GABAPENTIN 800 MG TAB PO SCH (08:17)
[2016-11-22] MEDS: ESCITALOPRAM OXALATE 20 MG TAB PO SCH (08:17)
--- NOTE | 2016-11-22 08:52 | Discharge Instructions ---
Discharge Information Report Includes Report will include the: Discharge Instructions & Summary Admission Admission Date / Time: Nov 20, 2016 at 12:42 Reason for Admission: Suicidal Ideation Discharge Discharge Diagnosis / Problem: major depressive disorder, recurrent, severe Condition at Discharge: Good Discharge Goals Goal(s): Decrease discomfort, Improve disease control, Prevent Disease Progression Activity Recommendations Activity Limitations: resume your previous activity . Instructions / Follow-Up Instructions / Follow-Up . SPECIAL CARE INSTRUCTIONS: 1. Follow through with your scheduled aftercare appointments. If unable to keep an appointment, please call to reschedule. 2. Take your medication only as prescribed. Medication should not be changed or stopped without the approval of your doctor. In the event of worsening symptoms or concerns about side effects, contact your doctor immediately. 3. Utilize new healthy coping skills, anger management skills, and stress management skills learned during your hospitalization. Journal feelings and process them with a support person. Identify stressors or situations that may result in relapse, deterioration or inappropriate behaviors and develop a plan to deal with those issues. 4. If your coping skills are ineffective and you are in crisis, contact your outpatient providers for direction. If unable to reach your providers, please call the CAN HELP LINE AT or go to the closest Emergency Room. 5. Avoid alcohol and un-prescribed drugs. 6. You have been provided with the Mental Health Advance Directives Pamphlet for your review. AFTERCARE APPOINTMENTS: * Please call your insurance company prior to your scheduled appointment to confirm your aftercare providers are covered. Take your insurance information to your appointments. . Discharge / Aftercare Planning Primary Care Physician: Name: Ander Weinstein at [facility] Phone Number: [phone] Appointment Notes: as needed Psychiatrist: Name: Dr Monte at [facility] Phone Number: Date of Appointment: Nov 23, 2016 Time of Appointment: 10:00 Therapist: Name Of Therapist: Jennifer Mccauley at [facility] Phone Number: Date of Appointment: Nov 23, 2016 Time of Appointment: 4:00 Etl Lead: Name: trey . Follow-Up Care Plan for Follow-Up Care: The patient will see both her psychiatrist and therapist tomorrow Current Hospital Diet Patient's current hospital diet: Regular Diet Discharge Diet Recommended Diet: Regular Diet Procedures Procedures Performed: No Pending Studies Pending Studies at Discharge: No Medical Emergencies . Who to Call and When: Medical Emergencies: For questions or emergencies related to your hospital stay, please contact the Inpatient Behavioral Health Unit at [phone]. A carbon coating machine operator is on-call 08/04 for the Behavioral Health Unit for emergencies At any time you feel your situation is an emergency, you may also call 911 immediately. . Non-Emergent Contact Non-Emergency issues call your: Psychiatrist, Therapist Advance Directives Existing Advance Directive: No Do You Have an Existing Mental: No Existing Living Will: No Existing Power of Biztalk Consultant: No Advance Directives Info Given: To Pt/S.O. Discharge Summary Admission HPI Per the Admitting provider: Please see attached H&P Hospital Course (1) Suicidal ideation 15 minute checks for safety. Encourage participation in group and individual counseling. Assist the patient to learn and utilize additional healthy coping strategies. We will need to confirm with that guns have been secured. 11/21 - denying SI, submitted 72 hour notice, family meeting with today. (2) Depression Continue Wellbutrin-XL 300 mg daily and Lexapro 20 mg daily. Obtain records from and coordinate care with Dr. Jackson and Jennifer Crawley. (3) Obesity Consider dietary consult for food choices and weight loss. Encourage physical activity. (4) Migraine Continue home medications. (5) Benign hypertension Continue home medications and monitor BP. (6) Nicotine abuse Smoking cessation information offered and refused. Gum and patch prn for cravings. Risk Factors Assessment : Yes /single/: No Higher / Fall in social status: No Access to guns: Yes ( has secured) Health problems: No Mental Health Diagnoses: Yes Substance use disorders: No Previous attempt: No Smoker: Yes Protective Factors Assessment Yarsani beliefs: No : Yes Responsible for young children: Yes Employed: Yes Stable relationships: No Supportive family: No Good rapport with provider: Yes Day of Discharge Assessment COURSE OF HOSPITALIZATION: During the patient's brief 2-1/2 day stay, no medications were adjusted. She was continued on Wellbutrin XL 300 mg daily and Lexapro 20 mg daily. Her primary stress was that she had an affair and informed her afterwards. This caused acute and dramatic stress between them. She had been suicidal to the point of having thought about using her gun. has secured all guns and patient has no access. Although reluctantly, the didn't participate in a family meeting by phone to discuss their circumstances. He agreed that they would continue to live together as they worked on what they wanted to do moving forward but would not agree to couples therapy. The patient herself had further individual discussions with her in which she felt that he was willing to work on his anger as part of improving their relationship. She agrees that they need time to process the stress before they make any decisions. She felt very comforted being in the hospital and able to learn new coping strategies. She denied acute suicidal thinking throughout her stay and quickly wanted to be discharged. She submitted a 72 hour notice to withdraw from treatment. Patient 's felt comfortable with her being discharged, saying that he believed her when she said she was not suicidal. The patient was anxious to get back home, return to work and again rebuilding her relationship. DAY OF DISCHARGE ASSESSMENT: Today the patient is requesting discharge. She denies suicidal thinking and is comfortable with their plan to live together while they figure out their future. Her mood today is elevated, optimistic. She is able to smile and is engaging with peers in positive ways. Today she is casually and appropriately dressed and groomed. Eye contact is good. Affect is smiling at times. Speech is of normal rate volume and tone. Thoughts are organized and goal directed, and without evidence of thought disorder. Recent and remote memory is intact per conversation. Intelligence is estimated to be average. Insight and judgment are improved over admission. Laboratory 11/20/16 10:52 11/20/16 10:52 Test 11/20/16 10:25 11/20/16 10:52 11/20/16 11:20 Urine Test NEG (NEG) Red Blood Count 4.93 M/uL (4.2-5.4) Mean Corpuscular Volume 82.8 fL (80-100) Mean Corpuscular Hemoglobin 28.8 pg (25-34) Mean Corpuscular Hemoglobin Concent 34.8 g/dl (32-36) RDW Standard Deviation 39.3 fL (36.4-46.3) RDW Coefficient of Variation 13.1 % (11.5-14.5) Mean Platelet Volume 10.0 fL (7.4-10.4) Anion Gap 11.0 mmol/L (3-11) Est Creatinine Clear Calc Drug Dose 129.5 ml/min Estimated GFR () 105.3 Estimated GFR (Non- 90.8 BUN/Creatinine Ratio 16.0 (10-20) Calcium Level 8.6 mg/dl (8.5-10.1) Total Bilirubin 0.6 mg/dl (0.2-1) Aspartate Amino Transf (AST/SGOT) 18 U/L (15-37) Alanine Aminotransferase (ALT/SGPT) 31 U/L (12-78) Alkaline Phosphatase 88 U/L (45-117) Total Protein 7.3 gm/dl (6.4-8.2) Albumin 3.6 gm/dl (3.4-5.0) Globulin 3.7 gm/dl (2.5-4.0) Albumin/Globulin Ratio 1.0 (0.9-2) Thyroid Stimulating Hormone (TSH) 0.388 uIu/ml (0.300-4.500) Salicylates Level < 1.7 mg/dl (2.8-20) Acetaminophen Level < 2 ug/ml (10-30) Ethyl Alcohol mg/dL < 3.0 mg/dl (0-3) Urine Color DK YELLOW Urine Appearance CLOUDY (CLEAR) Urine pH 6.5 (4.5-7.5) Urine Specific [place] 1.020 (1.000-1.030) Urine Protein NEG (NEG) Urine Glucose (UA) NEG (NEG) Urine Ketones NEG (NEG) Urine Occult Blood 2+ (NEG) Urine Nitrite NEG (NEG) Urine Bilirubin NEG (NEG) Urine Urobilinogen NEG (NEG) Urine Leukocyte Esterase TRACE (NEG) Urine WBC (Auto) 1-5 /hpf (0-5) Urine RBC (Auto) 5-10 /hpf (0-4) Urine Hyaline Casts (Auto) 1-5 /lpf (0-5) Urine Epithelial Cells (Auto) >30 /lpf (0-5) Urine Bacteria (Auto) NEG (NEG) Urine Opiates Screen NEG (NEG) Urine Methadone, Qualitative NEG (NEG) Urine Barbiturates NEG (NEG) Urine Phencyclidine (PCP) Level NEG (NEG) Ur Amphetamine/Methamphetamine NEG (NEG) MDMA (Ecstasy) Screen POS (NEG) Urine Benzodiazepines Screen NEG (NEG) Urine Cocaine Metabolite NEG (NEG) Urine Marijuana (THC) NEG (NEG) Total Time Total Time Spent (min): Greater than 30 minutes Total Time Included: examination of the patient, discharge planning, medication reconciliation, communication with other providers Tobacco Cessation at Discharge FDA approved Prescription: patient refused
[2017-01-09] MEDS ORDERED: PRLSR20 PO (13:14)
[2017-01-14] MEDS ORDERED: MELA1TAB9 PO (14:59)
[2017-01-14] MEDS ORDERED: CRAN500C2 PO (14:59)
[2017-01-14] MEDS ORDERED: DICL50TA3 PO (14:59)
[2017-01-30] MEDS ORDERED: POTA10CA28 PO (13:22)
== END 2016-11-22 10:30 | disposition home or self-care (01) | DRG 885 ==
LOC: C.EDB 10:09 → C.MHU 12:42 → EDBEDREQ 13:02
PROVIDERS: ADMIT Psychiatry & Neurology Psychiatry; ATTEND Psychiatry & Neurology Psychiatry
DX: F33.2 Major depressive disorder, recurrent severe without psychotic features (principal); R45.851 Suicidal ideations; Z68.41 Body mass index [BMI] 40.0-44.9, adult; Z79.899 Other long term (current) drug therapy; I10 Essential (primary) hypertension; G43.909 Migraine, unspecified, not intractable, without status migrainosus; Z81.8 Family history of other mental and behavioral disorders; F17.210 Nicotine dependence, cigarettes, uncomplicated; E66.01 Morbid (severe) obesity due to excess calories; F41.1 Generalized anxiety disorder

== ENCOUNTER → 2017-01-16 | Outpatient (CLI) | payer OTHER ==
[~2017-01-16] MED LIST changes: -BUPR-79 PO; +BUPRTAB51 PO; +CRAN500C2 PO; +MELA1TAB9 PO; +NARA2.5T2 PO; +POTA10CA28 PO; +PRLSR20 PO; +TOPI100T20 PO; -TOPI200T14 PO
[2017-01-16 18:33] LABS: BASO % 0.5 %; BASO ABS # 0.04 K/uL (0-0.2); COMPLETE YES; EOS % 3.9 %; HEMATOCRIT 42.8 % (37-47); IG% 0.4 %; LYMPH % 22.3 %; LYMPH ABS # 1.73 K/uL (1.2-3.4); MEAN CELL VOLUME 83.9 fL (80-100); MEAN CORPUSCULAR HEMOGLOBIN 29.4 pg (25-34); MEAN PLATELET VOLUME 10.4 fL (7.4-10.4); MONO % 11.5 %; NEUT % 61.4 %; PLATELET COUNT 402 K/uL (130-400); WHITE BLOOD COUNT 7.77 K/uL (4.8-10.8)
[2017-01-16 18:45] LABS: INR 0.9 (0.9-1.1); PARTIAL THROMBOPLASTIN RATIO 1.1; PROTHROMBIN TIME (PATIENT) 9.7 SECONDS (9.0-12.0)
[2017-01-16 18:47] LABS: POTASSIUM 2.7 mmol/L (3.5-5.1)
--- NOTE | 2017-01-16 18:57 | DIAGNOSTIC IMAGING REPORT ---
TWO VIEW CHEST CLINICAL HISTORY: Preoperative examination. FINDINGS: PA and lateral chest radiographs are compared to study dated 09/30/2016 and correlated with chest CT dated 09/14/2016. The examination is degraded by large body habitus. The cardiomediastinal silhouette is unremarkable. The lungs and pleural spaces are clear. There is no pneumothorax. The bony thorax appears intact. IMPRESSION: No active disease in the chest. Electronically signed by: Zesu Stephen M.D. 01/16/2017 6:56 PM Dictated Date/Time: 01/16/2017 6:55 PM
[2017-01-16 18:59] LABS: PREG INTERNAL NEGATIVE QC NEG CLEAR BACKGROUND; PREG INTERNAL POSITIVE QC POS CONTROL LINE
== END | disposition home or self-care (01) ==
LOC: C.LAB 17:33
DX: Z01.818 Encounter for other preprocedural examination (principal)

== ENCOUNTER → 2017-02-04 | Outpatient (CLI) | payer OTHER | END | disposition home or self-care (01) | LOC: C.LAB 18:53 | PROVIDERS: ATTEND Thoracic Surgery (Cardiothoracic Vascular Surgery) | DX: Z01.818 Encounter for other preprocedural examination (principal) ==

== ENCOUNTER → 2017-02-08 | Day surgery (SDC) | payer OTHER ==
[2017-01-14 14:59] VITALS: BMI 40.0
[2017-01-30 13:22] VITALS: Ht 175.3 cm; Wt 122.7 kg
[~2017-02-08] VITALS: Ht 175.3 cm; Wt 122.7 kg
[~2017-02-08] MED LIST changes: +DEXAMETHASONE SOD INJ 4 MG/ML VIAL ONE; +EpINEphrine INJ 1MG/ML AMP 1 MG/ML AMP ONE; +FENTANYL CITRATE INJ 50 MCG/1 ML 2 ML VIAL ONE; +LACTATED RINGER'S 1000ML 1,000 ML IV SCH; +LIDOCAINE 2% 20 MG/ML 5ML SYR ONE; +MIDAZOLAM HCL 1 MG/ML 2ML VIAL ONE; +ONDANSETRON INJ 2 MG/ML 2 ML VIAL ONE; +PROPOFOL IV EMULSION 10 MG/ML 20 ML VIAL IV ONE; +SUCCINYLCHOLINE CHLORIDE 20 MG/ML 10 ML VIAL IV ONE
--- NOTE | 2017-02-08 08:26 | History & Physical Bridge - SC ---
H&P Re-Evaluation Bridge Note: I have examined the patient, reviewed the History & Physical and in the interval since the performance of the History & Physical I have noted the following changes of clinical significance: No changes noted
--- NOTE | 2017-02-08 08:28 | History and Physical: Surg Cnt ---
History & Physical Date February 08, 2017. Chief Complaint HOARSENESS, RIGHT EAR AND THROAT PAIN, ABNORMAL RIGHT VOCAL PROCESS OF THE ARYTENOID History of Present Illness The patient is a 41 year old female with complaints of Past Medical/Surgical History Medical Problems: (1) Benign hypertension (2) Depression (3) DEPRESSIVE DISORDER NEC (4) DIAB TOM WO COMP TYPE II OR NOS/NOT UNCONTROLLED (5) Migraine (6) Nicotine abuse (7) Obesity PSH: S/P ANKLE SURGERY, S/P BACK SURGERY, S/P D&C, S/P HYMENOTOMY, S/P CERVIX CRYOSURGERY Additional History Hepatic Disease: No Endocrine Disorder: No Kidney Disease: No Hypertension: No Heart Disease: No Bleeding Tendencies: No Infectious Diseases: No Allergies Coded Allergies: Hydrocodone (Verified Allergy, Unknown, SICK TO STOMACH AND HEADACHE, 02/08) Home Medications Scheduled Bupropion Hcl (Wellbutrin Xl), 1 TAB PO QAM Cranberry (Vaccinium Macrocarp (Cranberry), 1 CAP PO QAM Escitalopram Oxalate (Lexapro), 20 MG PO QAM Gabapentin (Gabapentin), 800 MG PO TID Hydrochlorothiazide (Hydrochlorothiazide), 25 MG PO QAM Melatonin-Pyridoxine (Melatonin), 10 MG PO HS Omeprazole (Prilosec), 20 MG PO BID Potassium Chloride (Micro-K Ext Rel), 10 MEQ PO BID Topiramate (Topamax), 100 MG PO BID Scheduled PRN Diclofenac (Voltaren), 50 MG PO DAILY PRN for Migraine Naratriptan Hcl (Amerge), 1 TAB PO DAILY PRN for Migraine Physical Examination Skin: warm/dry, no rash Eyes: normal inspection, EOMI, sclerae normal ENT: + pertinent finding (MILD HOARSENESS, GRANULATION TISSUE INVOLVING RIGHT VOCAL PROCESS) Head: normocephalic, atraumatic Neck: supple, no adenopathy, trachea midline Respiratory/Chest: lungs clear, normal breath sounds, no respiratory distress Cardiovascular: regular rate, rhythm, no edema, no murmur Neurologic/Psych: no motor/sensory deficits, alert, normal reflexes, oriented x 3 Diagnosis HOARSENESS, RIGHT EAR AND THROAT PAIN, ABNORMAL RIGHT VOCAL PROCESS OF THE ARYTENOID Plan of Treatment DML WITH BIOPSY
[2017-02-08 09:19] LABS: BUN/CREATININE RATIO 13.9 (10-20); CALCIUM 7.7 mg/dl (8.5-10.1); CREATININE 0.75 mg/dl (0.60-1.20); POTASSIUM 3.5 mmol/L (3.5-5.1)
--- NOTE | 2017-02-08 09:49 | [facility] Operative Report ---
Operative Report Operative Date February 08, 2017. Pre-Operative Diagnosis Vocal Cord Lesion Post-Operative Diagnosis Same Procedure(s) Performed Direct Microlaryngoscopy With Biopsy Of Right Vocal Process of the Arytenoid Surgeon Dr. Bills Music Therapy Teacher Surgeon(s) None Estimated Blood Loss 5 ml Findings LIKELY GRANULOMA INVOLVING THE VOCAL PROCESS OF THE RIGHT ARYTENOID Specimens A. Right Vocal Process Granuloma I attest to the content of the Intraoperative Record and any orders documented therein. Any exceptions are noted below.
--- NOTE | 2017-02-08 09:52 | Discharge Instructions ---
Discharge Instructions Date of Service February 08, 2017. Admission Reason for Admission: Vocal Cord Lesion Discharge Discharge Diagnosis / Problem: SAME Discharge Goals Goal(s): Diagnostic testing Activity Recommendations Activity Limitations: as noted below RELATIVE VOICE REST FOR 48-72HRS . Current Hospital Diet Patient's current hospital diet: Discharge Diet Recommended Diet: Regular Diet Procedures Procedures Performed: Direct Microlaryngoscopy With Biopsy Of Right Vocal Process of the Arytenoid Pending Studies Studies pending at discharge: no Medical Emergencies . Who to Call and When: Medical Emergencies: If at any time you feel your situation is an emergency, please call 911 immediately. . Non-Emergent Contact Non-Emergency issues call your: Surgeon . . "Provider Documentation" section prepared by Monty Bills. . VTE Core Measure Inpt VTE Proph given/why not?: SCD's
[2017-02-08 10:37] VITALS: TEMP 36.5
--- NOTE | 2017-02-08 11:03 | Anesthesia Progress Nt - [facility] ---
Anesthesia Post Op Note Date & Time February 08, 2017 at 11:03 Vital Signs Pain Intensity: 4 Vital Signs Past 12 Hours Date Time Temp Pulse Resp B/P Pulse Ox O2 Delivery O2 Flow Rate FiO2 02/08/17 10:37 36.5 71 16 116/78 98 Room Air 02/08/17 10:19 13 02/08/17 10:19 72 13 02/08/17 10:18 37.3 71 16 121/77 98 Room Air 02/08/17 10:16 127/77 02/08/17 10:14 71 17 02/08/17 10:14 72 17 98 02/08/17 10:13 128/78 02/08/17 10:12 77 19 97 02/08/17 10:12 78 19 02/08/17 10:11 79 20 96 02/08/17 10:11 81 20 02/08/17 10:07 136/87 02/08/17 10:06 75 14 97 02/08/17 10:06 74 14 02/08/17 10:01 85 15 149/91 98 02/08/17 10:01 86 15 02/08/17 10:00 147/98 02/08/17 09:57 181/107 02/08/17 09:56 36.7 94 16 181/107 97 Humidified Oxygen 6 Diffusion Mask 02/08/17 08:28 36.8 72 16 150/74 98 Room Air Notes Mental Status: alert / awake / arousable, participated in evaluation Pt Amnestic to Procedure: Yes Nausea / Vomiting: adequately controlled Pain: adequately controlled Airway Patency, RR, SpO2: stable & adequate BP & HR: stable & adequate Hydration State: stable & adequate Anesthetic Complications: no major complications apparent
[2017-02-08 11:05] VITALS: BP 128/84; PULSE 66; O2SAT 97
--- NOTE | 2017-02-08 11:30 | OPERATIVE REPORT ---
DATE OF OPERATION: 02/08/2017 PREOPERATIVE DIAGNOSES: 1. Hoarseness. 2. Right vocal process lesion. POSTOPERATIVE DIAGNOSES: 1. Hoarseness. 2. Right vocal process lesion. PROCEDURE: Direct microlaryngoscopy with biopsy of right vocal process lesion. SURGEON: Dr. Bills. ANESTHESIA: General endotracheal. ESTIMATED BLOOD LOSS: 5 mL. 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 SPECIMENS: Vocal process of the right arytenoid granuloma for permanent pathological assessment. COMPLICATIONS: None. 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 She had some right hypopharyngeal pain and referred right otalgia, which was somewhat concerning given her smoking history. She was followed clinically, but the lesion did not resolve. It was recommended that she undergo the above-mentioned procedure on an outpatient elective basis. OPERATION AND FINDINGS: DESCRIPTION OF PROCEDURE: After informed consent had been obtained from the patient, the patient was wheeled to the operating room and placed on the operating table in the supine position. Monitors were placed. After induction of general endotracheal anesthesia, the table was turned 90 degrees and the patient was placed in the sniffing position. A tooth guard was placed over the maxillary dentition and the operating microscope was used to inspect the oral cavity, oropharynx, hypopharynx, and larynx. The intraoperative findings were of a granulomatous lesion involving the vocal process of the right arytenoid. The [place] lee was then hooked up to the laryngoscope and used to stabilize the patient on a roll of towels. The 0 degree bear telescope under magnification was used to take pictures of the granulomatous lesion involving the right vocal process. Next, the operating microscope using a 400 mm lens was then used to perform the procedure where a cup forceps was used to remove the granuloma in its entirety, which was sent off for permanent pathological assessment. A topical 1:1000 epinephrine soaked cottonoid was placed over to the right vocal process of the arytenoid and adequate time for hemostasis was allowed. The cottonoid was then removed and there was no further bleeding. Photodocumentation of the larynx was then performed. The laryngoscope was then carefully withdrawn. The oral cavity and oropharynx were suctioned. This marked the end of the case. The patient tolerated the procedure well. There were no apparent complications. The patient was extubated and transferred to recovery room in stable condition. I attest to the content of the Intraoperative Record and any orders documented therein. Any exceptio ns are noted below.
== END | disposition home or self-care (01) ==
LOC: X.SURG 07:51
DX: R49.0 Dysphonia (principal); J38.3 Other diseases of vocal cords; H92.01 Otalgia, right ear; I10 Essential (primary) hypertension; F32.9 Major depressive disorder, single episode, unspecified; E11.9 Type 2 diabetes mellitus without complications; F17.200 Nicotine dependence, unspecified, uncomplicated; E66.9 Obesity, unspecified; Z87.01 Personal history of pneumonia (recurrent); K21.9 Gastro-esophageal reflux disease without esophagitis; Z92.241 Personal history of systemic steroid therapy

== ENCOUNTER → 2017-09-20 | Outpatient (CLI) | payer OTHER ==
[~2017-09-20] MED LIST changes: +BACL10TA PO; -DEXAMETHASONE SOD INJ 4 MG/ML VIAL ONE; -EpINEphrine INJ 1MG/ML AMP 1 MG/ML AMP ONE; -FENTANYL CITRATE INJ 50 MCG/1 ML 2 ML VIAL ONE; -LACTATED RINGER'S 1000ML 1,000 ML IV SCH; -LIDOCAINE 2% 20 MG/ML 5ML SYR ONE; -MIDAZOLAM HCL 1 MG/ML 2ML VIAL ONE; -ONDANSETRON INJ 2 MG/ML 2 ML VIAL ONE; -PROPOFOL IV EMULSION 10 MG/ML 20 ML VIAL IV ONE; -SUCCINYLCHOLINE CHLORIDE 20 MG/ML 10 ML VIAL IV ONE
--- NOTE | 2017-09-20 10:44 | DIAGNOSTIC IMAGING REPORT ---
(CHEST) THORAX WITHOUT CT DOSE: 673.35 mGycm CLINICAL HISTORY: 41 years-old Female with R91.1 Pulmonary nodule, [id number] Pulmonary nodule, [id number]. Follow-up study to assess pulmonary nodule TECHNIQUE: Multiaxial CT images of the chest were performed without contrast. A dose lowering technique was utilized adhering to the principles of ALARA. COMPARISON: Chest CT 09/14/2016, 09/27/2015 and 12/15/2014. FINDINGS: No dominant thyroid nodule identified. There is no pathologic adenopathy about the chest identified. The heart is normal in size without pericardial effusion. Thoracic aorta appears normal in course and caliber. There is no pneumothorax, pleural effusion or focal airspace consolidation. Unchanged 3 mm noncalcified pulmonary nodule of the left lower lobe abutting the diaphragm as seen on image 164 series 4. No new or additional urinary nodules identified. There are hazy groundglass opacities throughout the lungs bilaterally suggest areas of atelectasis. Additionally, there is mild respiratory motion. Areas of geographic attenuation are present within the lower lobes and left upper lobe. Central airways are patent. There is no acute abnormality identified involving the imaged upper abdomen. Soft tissues are unremarkable. The bones appear intact. Mild multilevel endplate spurring of the spine. IMPRESSION: 1. Unchanged 3 mm noncalcified solid pulmonary nodule of the left lower lobe abutting the diaphragm. This appears stable dating back to 09/27/2015 suggesting benign etiology. No new or suspicious pulmonary nodules identified. 2. Bilateral groundglass opacities with areas of mosaic attenuation suggests atelectasis with some air trapping. No focal airspace consolidations. 3. No pathologic-appearing adenopathy. Electronically signed by: Ton Ash M.D. 09/20/2017 10:43 AM Dictated Date/Time: 09/20/2017 10:38 AM
== END | disposition home or self-care (01) ==
LOC: C.CTS 09:46
PROVIDERS: ATTEND Internal Medicine Pulmonary Disease
DX: R91.1 Solitary pulmonary nodule (principal)

== ENCOUNTER → 2017-10-02 | Day surgery (SDC) | payer OTHER ==
[2017-10-02] VITALS (9 sets, daily range): BP systolic 83–144; BP diastolic 48–91; PULSE 66–85; TEMP 36.3–36.9; O2SAT 95–97; Ht 175.3 cm; Wt 120.0 kg
[~2017-10-02] VITALS: Ht 175.3 cm; Wt 120.0 kg
[~2017-10-02] MED LIST changes: -CRAN500C2 PO; -DICL50TA3 PO; -POTA10CA28 PO
--- NOTE | 2017-10-02 10:50 | Discharge Instructions ---
Discharge Instructions Procedure Procedure Date: Oct 02, 2017. Reason for visit: Lumbar Spondylosis. Discharge Discharge Date: Oct 02, 2017. Discharge Diagnosis: s/p lumbar myelogram Instructions Activity Recommendations: 1 Day-May resume regular activity, 48 Hours of decreased exertion Return to School/Work: no limitations Recommended Home Diet: No Limitations Provider Instructions: ACTIVITY RECOMMENDATIONS: * Rest today. * Resume regular activity in one day. MEDICATIONS: * May take Tylenol or Ibuprofen as needed for pain. DIET: * Resume previous diet. SPECIAL CARE INSTRUCTIONS: Call your doctor if: * Temperature above 101 degrees F. * Pain not relieved by pain medicine ordered. * Increased drainage or redness from incision. * Notify your doctor with any questions or concerns. Call your doctor or go to the nearest Emergency Department if you experience: * Increased chest pain or shortness of breath. FOLLOW UP VISIT: Follow-up with Referring Physician as scheduled. Allergies Coded Allergies: Hydrocodone (Verified Allergy, Unknown, SICK TO STOMACH AND HEADACHE, 10/02) Shannon Chapman Recommendations: Call your doctor if: * Temperature above 101 degrees * Pain not relieved by pain medicine ordered * There is increased drainage or redness from any incision * You have any unanswered questions or concerns. Your Doctors Instructions noted above were prepared by provider Darwin Vasquez. Patient Signature Section: Patient Instructions Signature Page Moni Maria Patient (or Guardian) Signature/Date: I have read and understand the instructions given to me by my caregivers. Caregiver/RN/Doctor Signature/Date: The above-named patient and/or guardian has received patient instructions on this date. + Original Patient Signature Page (only) stays with chart. Please make copy for patient.
--- NOTE | 2017-10-02 10:52 | DIAGNOSTIC IMAGING REPORT ---
FLUOROSCOPICALLY GUIDED LUMBAR MYELOGRAM CLINICAL HISTORY: Back pain. Lumbar spondylosis. COMPARISON STUDY: Lumbar spine radiographs March 17, 2012. FLUOROSCOPY TIME: 0.8 minutes. PROCEDURE: The procedure, risks and benefits were discussed with the patient including the risk of spinal headache, bleeding, infection and seizure. The patient agreed to the procedure and informed written consent was obtained. The procedure was performed by Dr. Vasquez following a timeout. Given of the lower back was prepped and draped in sterile fashion and local anesthesia achieved with 1% lidocaine. Under intermittent fluoroscopic guidance, a 5 inch, 22-gauge spinal needle was directed into the thecal sac. There was immediate return of clear cerebrospinal fluid. Positioning within the thecal sac was confirmed with injection a small amount of contrast. At this time, 10 cc of Isovue-M 200 was instilled into the thecal sac. Note was made of L4-5 and L5-S1 discectomies with interval hardware removal since study of March 17, 2012. The needle was removed. The patient tolerated the procedure well and no immediate competitions were evident. The patient was transported to MRI. IMPRESSION: Fluoroscopically guided lumbar myelogram. Electronically signed by: Darwin Vasquez M.D. 10/02/2017 10:51 AM Dictated Date/Time: 10/02/2017 10:47 AM
--- NOTE | 2017-10-02 11:09 | DIAGNOSTIC IMAGING REPORT ---
CT LUMBAR MYELOGRAM CLINICAL HISTORY: Lumbar spondylosis. Back pain radiating into right lower extremity. COMPARISON STUDY: Lumbar spine radiographs March 17, 2012. TECHNIQUE: Following a fluoroscopically guided lumbar mammogram, axial images through the lumbar spine were obtained without intravenous contrast. Sagittal and coronal reconstructions were viewed. FINDINGS: For purposes of numbering on this exam, the L5-S1 disc space is assigned to axial image 296 of 365. The patient is status post L4-5 and L5-S1 discectomies with interbody spacer placement. There is near complete bony bridging at the L4-L5 level with minor bridging at the L5-S1 level. Pedicle screws have been removed. There is no acute lumbar spine fracture or suspicious lesion. There is a bone island within the L1 vertebral body. Paravertebral soft tissues are unremarkable. Suboptimal mixing of contrast is noted with contrast layering dependently. Therefore, there is suboptimal opacification of the ventral aspect of the sac. T12-L1: The central canal and neural foramen are patent. L1-L2: The central canal and neural foramen are patent. L2-L3: The central canal and neural foramen are patent. L3-L4: The central canal and neural foramen are patent although thecal sac opacification is suboptimal. L4-L5: The central canal and neural foramen are patent although thecal sac opacification is suboptimal. L5-S1: The central canal and neural foramen are patent. IMPRESSION: 1. Status post L4-L5 and L5-S1 discectomies and posterior decompression. Interval removal of pedicle screws. 2. Suboptimal mixing of contrast within the thecal sac. Therefore, ventral thecal sac opacification is suboptimal. Decreased sensitivity for detection of small disc herniations. However, no severe central canal and neural foraminal stenosis identified on this exam. 3. No lumbar spine fracture or suspicious lesion. Electronically signed by: Darwin Vasquez M.D. 10/02/2017 11:07 AM Dictated Date/Time: 10/02/2017 10:51 AM
== END | disposition home or self-care (01) ==
LOC: C.ACU 08:04
PROVIDERS: ATTEND Orthopaedic Surgery Orthopaedic Surgery of the Spine
DX: M47.16 Other spondylosis with myelopathy, lumbar region (principal)

== ENCOUNTER 2024-06-28 01:39 | Observation (INO) ==
--- OUTSIDE RECORDS SUMMARY | 2024-06-28 01:43 | External Medical Summary | Summary of Care ---
Author Name Unknown Organization [facility] Address [address] [place] [address] Phone [phone] Care Team Providers Care Pre Planning Advisor Name Role Phone Akanksha Parrish PA-C Primary Care Provider [phone] Encounter Details Date Type Department Care Team ([facility] st Contact Info) Description 06/26/2024 Telephone [facility] Cardiology [address] [place] [address] Jeff Lau MD [address] [place] [address] Allergies Active Allergy Reactions Criticality Noted Date Comments Tramadol Abdominal pain High 02/19/2018 CLEMONS Valacyclovir 06/13/2021 rash documented as of this encounter (statuses as of 06/26/2024) Medications Medication Sig Dispensed Refills Start Date End Date Status lamoTRIgine 200 MG Oral Tablet Take 1 Tablet by mouth every evening. Total of 300 mg daily 30 Tab 5 09/22/2018 Active albuterol sulfate (PROVENTIL) (2.5 MG/3ML) 0.083% nebulizer solutionIndications: Acute bronchitis, antibiotics not indicated Inhale 1 Vial via nebulizer every 4 hours as needed for Wheezing. 120 Vial 5 06/01/2019 Active Levonorgestrel 20 MCG/24HR Intrauterine Intrauterine Device (Mirena) Insert 1 Each into uterus once. Active Cetirizine HCl 10 MG Oral Tablet Take 1 Tablet by mouth in the morning and 1 Tablet before bedtime. 60 Tab 04/26/2021 Active Ziprasidone HCl 60 MG Oral Capsule (Geodon) 1 daily 06/07/2021 Active Ondansetron HCl 8 MG Oral Tablet (Zofran)Indications: Nausea Take by mouth 1 Tablet every 8 hours as needed for Nausea. 20 Tablet 04/23/2022 Active Rizatriptan Benzoate 10 MG Oral Tablet (Maxalt) at onset of headache, may repeat in two hours Up to two pills in 24 hours. 10 Tablet 05/06/2023 Active lamoTRIgine 150 MG Oral Tablet (LaMICtal) 05/06/2023 Active Hydroxychloroquine Sulfate 200 MG Oral Tablet (Plaquenil) Take 2 Tablets by mouth at bedtime. 180 Tablet 3 10/30/2023 Active buPROPion HCl ER (XL) 150 MG Oral Tablet Extended Release 24 Hour (Wellbutrin XL) Take 1 Tablet by mouth in the morning. 10/31/2023 Active Topiramate 100 MG Oral Tablet (topAMAX) TAKE 1 TABLET BY MOUTH TWICE A DAY 180 Tablet 1 02/03/2024 Active Nitrofurantoin Macrocrystal 100 MG Oral Capsule (Macrodantin) Take one capsule as needed 30 Capsule 3 03/30/2024 Active Gabapentin 800 MG Oral Tablet (Neurontin) TAKE 1 TABLET BY MOUTH THREE TIMES DAILY 270 Tablet 04/02/2024 Active Linzess 145 MCG Oral Capsule (linaCLOtide)Indicat ions:Drug-induced constipation TAKE 1 CAPSULE BY MOUTH ONCE DAILY BEFORE BREAKFAST 90 Capsule 1 05/01/2024 Active Meloxicam 15 MG Oral Tablet (Mobic)Indications:N ew daily persistent headache,Lumbar radiculopathy TAKE ONE TABLET BY MOUTH IN THE MORNING FOR PAIN 90 Tablet 1 05/01/2024 Active Additional Information Patient taking differently: PRN, Reported on 05/06/2024 hydroCHLOROthiazide 25 MG Oral Tablet (Hydrodiuril) Take 0.5 Tablets by mouth in the morning. 05/04/2024 Active Probiotic & Acidophilus Ex St Oral Capsule Take 1 Capsule by mouth in the morning and 1 Capsule at noon and 1 Capsule in the evening. Take with meals. Active Evening Cochran Oil 500 MG Oral Capsule Take by mouth. A ctive Albuterol Sulfate HFA 108 (90 Base) MCG/ACT Inhalation Aerosol SolutionIndications: Acute bronchitis, antibiotics not indicated inhale 2 puffs by mouth four times daily every morning, at noon, every evening, and before bedtime 18 g 1 06/01/2024 Active Aspirin 81 MG Oral Tablet Chewable Take 1 Tablet by mouth in the morning. 34 Tablet 11 06/26/2024 Active Atorvastatin Calcium 40 MG Oral Tablet (Lipitor) Take 1 Tablet by mouth in the morning. 100 Tablet 3 06/26/2024 Active Nitroglycerin 0.4 MG Sublingual Tablet Sublingual (Nitrostat) Place 1 Tablet under the tongue every 5 minutes as needed for Pain, Chest. up to 3 doses in 15 minutes 25 Tablet 11 06/26/2024 Active documented as of this encounter (statuses as of 06/26/2024) Active Problems Problem Noted Date Diagnosed Date Other bipolar disorder 04/23/2022 Lichen sclerosus of female genitalia 07/28/2014 Overview: Clobetasol Hypokalemia 06/24/2014 MEDICATION USE AGREEMENT 11/26/2013 Overview: 2007 Thoracic and lumbosacral neuritis 06/02/2009 Lumbosacral spondylosis 09/18/2007 Overview: DDD L4-5, L5-S1 S/P L5-S1 Laminotomy/Discectomy- March S/P R L5-S1 TLIF, L5-S1 PSF- May S/P Rev L4-S1 Legacy w PSF, L4-5 PLIF- Aug S/P HWR L4-S1, Rev L5 Laminectomy, R L5-S1 Foraminotomy- January 2013 Postlaminectomy syndrome, lumbar 08/25/2007 ADJ DISORDER W/DEPRES MOOD 12/12/2004 ABN PAP SMEAR-CERVIX 05/23/2000 Displacement of lumbar inter vertebral disc without myelopathy 04/11/1999 HTN, goal below 130/80 documented as of this encounter (statuses as of 06/26/2024) Resolved Problems Problem Noted Date Diagnosed Date Resolved Date Body mass index (BMI) of 40. 0 to 44.9 in adult 06/17/2017 01/26/2021 Overview: Per Obesity protocol #1 Examination following surgery 11/24/2009 08/13/2017 Lumbago 06/02/2009 08/13/2017 SPRAIN OF ANKLE, RIGHT ANTER IOR TALOFIBULAR LIGAME 11/12/2006 08/13/2017 ADVANCE DIRECTIVE INFORMATION 07/11/2005 08/13/2017 Overview: Yes, Patient instructed to provide copy of advance directive for provider to review and to be scanned into Electronic Medical Record Encounter for supervision of other normal 04/22/2003 09/07/2003 Overview: ICD-10 update of inactive term documented as of this encounter (statuses as of 06/26/2024) Immunizations Name Administration Dates Next Due COVID-19 mRNA, LNP-s, No Pre serve, 2-Dose Series (Pfizer) 06/22/2021,06/01/2021 DTaP Dipth/Tet/Acell Pertussis (Infanrix), Peds 02/25/1981,02/28/1978,05/03/1977,03/01,01/04/1977 Hepatitis B, 20+ yrs 01/15/2006,08/17/2005,07/18 MMR - Measles/Mumps/Rubella Vaccine 05/04/1992,0 01/30/1978 OPV - Polio Virus Vaccine (Oral) 981,02/28/1978,05/03/1977,03/01,01/04/1977 PPD 05/19/2018,12/08/2014,03/03/1987 Seasonal Influenza, PF, 6 M & above, IM , (FluLaval or Fluzone) 10/16/2018 TD - Tetanus/Diptheria (ADULT) 05/04/1992 TD, Preservative Free 04/12/2020 TDAP, Age 7 and older, IM (Adacel) 04/11/2009 04/11/2019 documented as of this encounter Social History Tobacco Use Types Packs/Day Years Used Date Smoking Tobacco: Former Cigarettes 0 11/14/1998 - 11/14/2016 Vaporizer Passive Smoke Exposure: Past Smokeless Tobacco: Former Quit: 07/08/2014 Alcohol Use Standard Drinks/Week Comments No 0 (1 standard drink = 0.6 oz pur e alcohol) rare AUDIT-C Answer Date Recorded Frequency of Alcohol Consumption Never 09/22/2018 Average Number of Drinks Not on file 019 Frequency of Binge Drinking Not on file 03/2019 PHQ-2 Answer Date Recorded PHQ-2 Score 1 04/11/2020 Hunger Vital Sign Answer Date Recorded Within the past 12 months, y ou worried that your food would run out before you got the money to buy more. Never true 12/13/19 21 Within the past 12 months, t he food you bought just didn't last and you didn't have money to get more. Never true 12/12/2020 Utilities Answer Date Recorded Do you have trouble paying y our heating, water, or electric bill? (Adult - for ages 18 years and over) Not on file 03/03/2024 Is your family able to pay t he heat, water, or electric bill? (Household - for ages 0-17 years) Not on file 03/03/2024 Does your family have access to good internet? (Household - for ages 0-17 years) Not on file 03/03/2024 Social Connections Answer Date Recorded How often do you feel lonely or isolated from those around you? (Adult - for ages 18 years and over) Not on file 03/03/2024 Sex and Gender Information Value Date Recorded Sex Assigned at Not on file Gender Identity Not on file Sexual Orientation Straight 12/12/2020 12 :33 PM EDT Job Start Date Occupation Industry Not on file Not on file Not on file documented as of this encounter Miscellaneous Notes * Telephone Encounter - Jeff Lau MD - 06/26/2024 5:08 PM EDT Exercise stress test done today is read with significant abnormalities suggesting ischemia at peak exercise. I called patient and informed her of the results which is in line with underlying CAD. After explaining the results I discussed with the patient upcoming steps as follow: Dr Mondragon is informed of results and will communicate with patient next week in regards to further steps in terms of ischemic evaluation. If in the interim patient is to have anginal symptoms, she is advised to seek medical attention by going to the nearest ED to r/o ACS. Patient is not on medical regimen for CAD and will therfore start Aspirin 81 mg daily, Lbjotnufhlxp11 mg daily, and SubL Nitro PRN. Patient is agreeable with plan and reports understanding of above with no further questions. Prescriptions sent to patient's pharmacy. Jeff Lau MD Cardiovascular Disease Fellow - PGY5 [facility] documented in this encounter Plan of Treatment Upcoming Encounters Date Type Department Care Team (Late st Contact Info) Description 06/29/2024 3:00 PM EDT Office Visit Neurology [facility] [address] [facility] [place] [address] Keren Fuller MD [address] [facility] [place] [address] 08/03/2024 8:00 AM EST Office Visit Rheumatology [facility] [address] [place] [address] Jim Kearney CRNP [address] [place] [address] 08/17/2024 10:30 AM EST Imaging Radiology [facility] [address] [facility] [address] [facility] [place] [address] 08/17/2024 11:00 AM EST Imaging Radiology [facility] [address] [facility] [place] [address] 12/28/2024 8:30 AM EDT Office Visit Gynecology/Obstetrics [facility] [address] [facility] [place] [address] Diana Harkins CRNP [address] [facility] [place] [address] Scheduled Procedures Name Priority Associated Diagnoses Date/Ti me COLONOSCOPY FLEXIBLE PROXIMAL DIAGNOSTIC Recall Screen for colon cancer Health Maintenance Due Date Last Done Comments Pneumococcal Vaccine: Pediatrics (0 to 5 Years) and At-Risk Patients (6 to 64 Years) (1 of 2 - PCV) 1982 COVID-19 Vaccine (3 - Pfizer risk series) 07/20/2021 06/22/2021, 06/01/2021 Cologuard 2021 Fecal Occult Blood Test 2021 Sigmoidoscopy 2021 Influenza Vaccine (FLU shot) (#1) 2024 10/16/2018 Mammogram 02/18/2025 02/19/2024, 06/0 11/2023, 02/04/2023, Additional history exists GFR 04/30/2025 04/30/2024, 03/16, 05/07/2023, Additional history exists Pap Smear 06/29/2026 06/29/2023, 09/18, 08/30/2015 (Done elsewhere), Additional history exists Albumin/Creatinine Ratio 03/30/2027 03/30/2024 Diabetes Screening 04/30/2027 04/30/2024, 0 03/30/2024, 03/30/2024, Additional history exists Cervical Cancer Screening 06/29/2028 HPV/Co-Test 06/29/2028 06/29/2023 Lipid Panel 03/30/2029 03/30/2024, 05/18, 01/18/2021, Additional history exists DTap/Tdap Vaccines (8 - Td or Tdap) 04/12/2030 04/12/2020, 04/11/2009, 05/04/1992, Additional history exists Colonoscopy 12/31/2032 12/31/2022, 12/31/2022 Colorectal Cancer Screening 12/31/2032 Hepatitis C Screening Completed 11/13/2002 Hepatitis B Vaccine Completed 01/15/2006, 08/17/2005, 07/18/2005 HPV (Gardasil) Vaccine Aged Out No lo nger eligible based on patient's age to complete this topic MENINGOCOCCAL (MENACTRA/MENVEO) Aged Out No longer eligible based on patient's age to complete this topic documented as of this encounter Medical Devices Implanted Type Area Sheet Folder Device Identifier Shelf Expiration Date Model / Serial / Lot Graft Healos 10 2761-60-010 - [id number] Implanted:Qty: 1 on 08/30/2008 at OR [facility] N/A: Spine Lumbar [employer] FER[employer] DEPUY 10/17/2009 [id number] / / [id number] Graft Healos c 2761-60-005 - [id number] Implanted:Qty: 1 on 08/30/2008 at OR [facility] N/A: Spine Lumbar [employer] FERNA[employer] DEPUY 10/17/2009 [id number] / / [id number] Tavo 5.5x80 Prebnt Ti [id number] - [id number] Implanted:Qty: 1 on 08/30/2008 at OR [facility] Bilateral: Spine Lumbar Medtronic Sofamor [place] [id number] / / Expedium Ti Sfx 5.5 Lat A6 - [id number] Implanted:Qty: 1 on 08/30/2008 at OR [facility] Spine Lumbar FERNANDO & FERNANDO DEPUY [id number] / / Cage Implanted:Qty: 1 on 08/30/2008 at OR [facility] N/A: Spine Lumbar FERNANDO & FERNANDO DEPUY [id number] / / 70 Cm Contract Trial Lead [place] [employer] Implanted:Qty: 1 on 11/24/2009 at OR [facility] N/A: Back [place] D LO 07/17/2011 [id number] / / [id number] documented as of this encounter Visit Diagnoses Diagnosis Coronary artery disease involving nulato coronary artery of nulato heart, unspecified whether angina present- Primary documented in this encounter Advance Directives * Full Code (Latest Code Status on File) Date Activated Date Inactivated Comments 01/23/2013 1:20 PM 01/27/2013 12:14 AM This order reflects the patients wishes and were consensually agreed upon. * Full Code Date Activated Date Inactivated Comments 01/23/2013 8:02 AM 01/23/2013 1:20 PM This order r eflects the patients wishes and were consensually agreed upon. Question Answer Comments Discussion of Advance Directives occurred with: Patient Does the patient have a Living Will? No Does the patient have Health Care Power of Attor traci? No * Full Code Date Activated Date Inactivated Comments 08/30/2008 5:07 PM 09/05/2008 12:01 AM * Full Code Date Activated Date Inactivated Comments 08/30/2008 9:09 AM 08/30/2008 5:07 PM Care Teams Pre Planning Advisor Relationship Specialty Start Date End Date Akanksha Parrish PA-C [address] [facility] [place] [address] PCP - General Physician Business Records Manager 04/23/23 documented as of this encounter
--- OUTSIDE RECORDS SUMMARY | 2024-06-28 01:43 | External Medical Summary | Summary of Care ---
Author Name Unknown Organization [facility] Address [address] [place] [address] Phone [phone] Care Team Providers Care Financial Aid Director Name Role Phone Akanksha Parrish PA-C Primary Care Provider [phone] [phone] Reason for Referral * Precert (Diagnostic Medical) (Within 10 days (routine)) - Pending Review Denial Specialty Diagnoses / Procedures Referred By Contac t Referred To Contact Cardiac Studies Diagnoses Dizziness Chest pain, unspecified type Procedures ECHO, STRESS (EXERCISE) W/ PHYSICIAN Aiyana Mondragon DO [address] [facility] [place] [address] Referral ID Status Reason Start Date Expiration Date Visits Requested Visits Authorized [id number] Pending Review Denial Precert 06/19/2024 06/19/[phone] Reason for Visit * Precert (Diagnostic Medical) (Within 10 days (routine)) - Pending Review Denial Specialty Diagnoses / Procedures Referred By Contac t Referred To Contact Cardiac Studies Diagnoses Dizziness Chest pain, unspecified type Procedures ECHO, STRESS (EXERCISE) W/ PHYSICIAN Aiyana Mondragon DO [address] [facility] [place] [address] Referral ID Status Reason Start Date Expiration Date Visits Requested Visits Authorized [id number] Pending Review Denial Precert 06/19/2024 06/19/[phone] Encounter Details Date Type Department Care Team (Latest Contact Info) Description 06/26/2024 2:14 PM EDT - 06/26/2024 11:59 PM EDT Hospital Encounter Cardiac Studies [address] [address] Discharge Disposition: Home - Self Care Allergies Active Allergy Reactions Criticality Noted Date Comments Tramadol Abdominal pain High 02/19/2018 CLEMONS Valacyclovir 06/13/2021 rash documented as of this encounter (statuses as of 06/27/2024) Medications Medication Sig Dispensed Refills Start Date [...] the evening. Take with meals. Active Evening Perkins Oil 500 MG Oral Capsule Take by mouth. A ctive Albuterol Sulfate HFA 108 (90 Base) MCG/ACT Inhalation Aerosol SolutionIndications: Acute bronchitis, antibiotics not indicated inhale 2 puffs by mouth four times daily every morning, at noon, every evening, and before bedtime 18 g 1 06/01/2024 Active documented as of this encounter (statuses as of 06/27/2024) Active Problems Problem Noted Date Diagnosed Date [...] as of this encounter (statuses as of 06/27/2024) Resolved Problems Problem Noted Date Diagnosed Date [...] as of this encounter (statuses as of 06/27/2024) Immunizations Name Administration Dates Next Due COVID-19 mRNA, LNP-s, No Pre serve, 2-Dose Series (Dataminr) 06/22/2021,06/01/2021 DTaP Dipth/Tet/Acell Pertussis (Infanrix), Peds 02/25/1981,02/28/1978,05/03/1977,03/01,01/04/1977 [...] as of this encounter Miscellaneous Notes * Ancillary Progress Note - Arianne Fontanez RN - 06/26/2024 2:15 PM EDT We had the cariology fellow come to the stress room to evaluate this patient prior to discharge dueto her having her sxs that brought her for the test. She was fatigued post test and "wobbly" She states that she is always like this when she gets her "episodes" She was adamant that she was fine to leave, so we removed her IV site and escorted her to the waiting room. We informed her that we wouldhave the test read by cardiology and that her doctor will be reaching out to go over it with her. She verbalized understanding. VSS at post stress and the IV was removed. Arianne Fontanez RN Advanced Imaging Nurse [phone] documented in this encounter Plan of Treatment Upcoming Encounters Date Type Department Care Team (Late st Contact Info) Description 06/29/2024 3:00 PM EDT Office Visit Neurology [facility] [address] [facility] [place] [address] Keren Fuller MD [address] [facility] [place] [address] 08/03/2024 8:00 AM EST Office Visit Rheumatology [address] [place] [address] Jim Kearney CRNP [facility] [place] [address] 08/17/2024 10:30 AM EST Imaging Radiology [facility] 1st Floor, [place] [address] [facility] [place] [address] 08/17/2024 11:00 AM EST Imaging Radiology [facility] [address] [facility] [place] [address] 12/28/2024 8:30 AM EDT Office Visit Gynecology/Obstetrics [facility] [address] [facility] [place] [address] Diana Harkins CRNP [address] [facility] [place] [address] Scheduled Procedures Name Priority Associated Diagnoses Date/Ti [...] shot) (#1) 2024 10/16/2018 Mammogram 02/18/2025 02/19/2024, 11/2023, 02/04/2023, Additional history exists GFR 04/30/2025 [...] this encounter Medical Devices Implanted Type Area Wellness Specialist Device Identifier Shelf Expiration Date Model / Serial / Lot Graft Healos 10 2761-60-010 - [id number] Implanted:Qty: 1 on 08/30/2008 at OR [facility] N/A: Spine Lumbar [employer]O [employer] FERNA[employer] DEPUY 10/17/2009 [id number] / / [id number] Graft Healos [facility] 2761-60-005 - [id number] Implanted:Qty: 1 on 08/30/2008 at OR [facility] N/A: Spine Lumbar FERNANDO [employer] FERNANDO DEPUY 10/17/2009 [id number] / / [id number] Tavo 5.5x80 Prebnt Ti [id number] - [id number] Implanted:Qty: 1 on 08/30/2008 at OR [facility] Bilateral: Spine Lumbar Medtronic Sofamor Danek [id number] / / Expedium Ti Sfx 5.5 Lat A6 - [id number] Implanted:Qty: 1 on 08/30/2008 at OR [facility] Spine Lumbar FERNANDO [employer] FERNANDO DEPUY [id number] / / Cage Implanted:Qty: 1 on 08/30/2008 at OR [facility] N/A: Spine Lumbar FERNANDO & FERNANDO DEPUY [id number] / / 70 Cm Contract Trial Lead [employer] [employer] Implanted:Qty: 1 on 11/24/2009 at OR [facility] N/A: Back [place] 07/17/2011 [id number] / / [id number] documented as of this encounter Procedures Procedure Name Priority Date/Time Associated Diagnosis Comments ECHO, STRESS (EXERCISE) W/ PHYSICIAN Routine 06/26/2024 4:06 PM EDT Dizziness Chest pain, unspecified type documented in this encounter Results * ECHO, STRESS (EXERCISE) W/ PHYSICIAN (06/26/2024 4:06 PM EDT) LEFT VENTRICULAR EJECTION FRACTION 60 % [facility] 06/26/2024 3:06 PM EDT Aiyana Mondragon DO [facility] CARDIOLOGY documented in this encounter Visit Diagnoses Diagnosis Dizziness Dizziness and giddiness Chest pain, unspecified type documented in this encounter Administered Medications Inactive Administered Medications - up to 3 most recent administrations Medication Order MAR Action Action Date Dose Rate Site perflutren lipid microsphere inj SUSP 1.956 mg 1.956 mg, Intravenous, ONCE PRN Other, For Echo Only - Suboptimal Echo Images, Starting on Sat06/26/24 at 1525, Until Sat06/26/24 at 1724, For 2 hours, Administer IVP over 45 seconds, Cardiac Studies_HODHOV Given 06/26/2024 3:32 PM EDT 1.956 mg documented in this encounter Advance Directives * [...] 9:09 AM 08/30/2008 5:07 PM Care Teams Financial Aid Director Relationship Specialty Start Date End Date Akanksha Parrish PA-C [address] [place] [address] PCP - General Physician Comp Field Case Manager 04/23/23 documented as of this encounter
--- OUTSIDE RECORDS SUMMARY | 2024-06-28 01:44 | External Medical Summary ---
Author Name Unknown Address Unknown Organization [id number]:[facility] - [address] [place] [address] Laboratory Report Ordering Provider Test Date Status KAREEM WEST 04/30/2024 15:37:00 Final hCG can serve as a screening assay for . However, early may not give a positive hCG test result. In addition, some non- women may have a hCG result slightly higher than the reference limit. Careful interpretation of the hCG with clinical history is required to determine whether the patient may be .
Postmenopausal women have higher hCG than premenopausal women. The reference interval for non- premenopausal women is <= 1 mIU/mL, and for postmenopausal women is <= 7 mIU/mL. Observation Date Value Abnormality Reference (Units ) Status Choriogonadotropin.intact +Beta subunit [Units/volume] in Serum or Plasma 04/30/2024 15:37:00 <0.3 <=1.0 (mIU/mL) Final Performing Location [facility] - [address] [place] [address]
--- OUTSIDE RECORDS SUMMARY | 2024-06-28 01:44 | External Medical Summary | Summary of Care ---
Author Name Unknown Organization [facility] Address [address] [place] [address] Phone [phone] Care Team Providers Care Element Setter Name Role Phone Akanksha Parrish PA-C Primary Care Provider [phone] Reason for Referral * Evaluate & Treat - Unlimited Visits (Within 3 days (urgent)) - Authorized Specialty Diagnoses / Procedures Referred By Contact Referred To Contact Cardiovascular Medicine / Cardiology Diagnoses Micky Van DO [address] [place] [address] Referral ID Status Reason Start Date Expiration Date Visits Requested Visits Authorized [id number] Authorized Specialty Services Required 04/30/2024 999 [id number] Question Answer Referral Priority Within 3 days (urgent) Where should this appointment be scheduled? [facility] To which of the following clinics are you referring your patient? General Cardiology Clinic Comments Discharge Order Reason for Visit * Reason Comments Chest Pain * Auth/Cert Specialty Diagnoses / Procedures Referred By Robson miranda Referred To [facility] [address] [place] [address] Phone: [phone] Emergency Medicine [facility] [address] [place] [address] Referral ID Status Reason Start Date Expiration Date Visits Re quested Visits Authorized [id number] Encounter Details Date Type Department Care Team (Late st Contact Info) Description 04/30/2024 3:42 PM EDT - 04/30/2024 7:57 PM EDT Emergency [facility] Emergency Department ([facility]) [address] [place] [address] Micky Seaman, DO [address] [place] [address] Generalized weakness (Primary Dx); Chest pain; Bradycardia; Lightheadedness Discharge Disposition: Home - Self Care Allergies Active Allergy Reactions Criticality Noted Date Comments Tramadol Abdominal pain High 02/19/2018 CLEMONS Valacyclovir 06/13/2021 rash documented as of this encounter (statuses as of 05/01/2024) Medications Medication Sig Dispensed Refills Start Date End Date Status lamoTRIgine 200 MG Oral Tablet Take 1 Tablet by mouth every evening. Total of 300 mg daily 30 Tab 5 09/22/2018 Active albuterol sulfate (PROVENTIL) (2.5 MG/3ML) 0.083% nebulizer solutionIndications:A cute bronchitis, antibiotics not indicated Inhale 1 Vial [...] MG Oral Capsule (Geodon) 1 daily 06/07/2021 Act bette Ondansetron HCl 8 MG Oral Tablet (Zofran)Indications:N ausea Take by mouth 1 Tablet every 8 hours as needed for Nausea. 20 Tablet 04/23/2022 Active Rizatriptan Benzoate 10 MG Oral Tablet (Maxalt) at onset of headache, may repeat in two hours Up to two pills in 24 hours. 10 Tablet 05/06/2023 Active Linzess 145 MCG Oral Capsule (linaCLOtide)Indicati ons:Drug-induced constipation TAKE 1 CAPSULE BY MOUTH ONCE DAILY before breakfast 90 Capsule 3 05/07/2023 Active lamoTRIgine 150 MG Oral Tablet (LaMICtal) 05/06/2023 Active Hydroxychloroquine Sulfate 200 MG Oral Tablet (Plaquenil) Take 2 Tablets by mouth at bedtime. 180 Tablet 3 10/30/2023 Active buPROPion HCl ER (XL) 150 MG Oral Tablet Extended Release 24 Hour (Wellbutrin XL) Take 1 Tablet by mouth in the morning. 10/31/2023 Active Albuterol Sulfate HFA 108 (90 Base) MCG/ACT Inhalation Aerosol SolutionIndications:A cute bronchitis, antibiotics not indicated Inhale 2 Puffs by mouth in the morning and 2 Puffs at noon and 2 Puffs in the evening and 2 Puffs before bedtime. 18 g 1 11/04/2023 Active Meloxicam 15 MG Oral Tablet (Mobic)Indications:Ne w daily persistent headache,Lumbar radiculopathy TAKE 1 TABLET BY MOUTH EVERY MORNING for pain 90 Tablet 1 11/05/2023 Active Topiramate 100 MG Oral Tablet (topAMAX) TAKE 1 TABLET BY MOUTH TWICE A DAY 180 Tablet 1 02/03/2024 Active hydroCHLOROthiazide 25 MG Oral Tablet (Hydrodiuril) TAKE 1 TABLET BY MOUTH ONCE DAILY 90 Tablet 1 02/28/2024 Active Nitrofurantoin Macrocrystal 100 MG Oral Capsule (Macrodantin) Take one capsule as needed 30 Capsule 3 03/30/2024 Active Gabapentin 800 MG Oral Tablet (Neurontin) TAKE 1 TABLET BY MOUTH THREE TIMES DAILY 270 Tablet 04/02/2024 Active documented as of this encounter (statuses as of 05/01/2024) Active Problems Problem Noted Date Diagnosed Date [...] as of this encounter (statuses as of 05/01/2024) Resolved Problems Problem Noted Date Diagnosed Date [...] as of this encounter (statuses as of 05/01/2024) Immunizations Name Administration Dates Next Due COVID-19 mRNA, LNP-s, No Pre serve, 2-Dose Series (Yidio) 06/22/2021,06/01/2021 DTaP Dipth/Tet/Acell Pertussis (Infanrix), Peds 02/25/1981,02/28/1978,05/03/1977,03/01,01/04/1977 [...] on file documented as of this encounter Last Filed Vital Signs Vital Sign Reading Time Taken Comments Blood Pressure 107/66 04/30/2024 7:00 PM EDT Pulse 59 04/30/2024 7:00 PM EDT Temperature 36.6 C (97.9 F) 04/30/2024 2:58 PM ED T Respiratory Rate 18 04/30/2024 7:00 PM EDT Oxygen Saturation 100% 04/30/2024 2:58 PM EDT Inhaled Oxygen Concentration - - Weight 81.6 kg (180 lb) 04/30/2024 2:58 PM EDT Height 175.3 cm (5' 9") 04/30/2024 2:58 PM EDT Body Mass Index 26.58 04/30/2024 2:58 PM EDT documented in this encounter Discharge Instructions * Discharge Instructions* Micky Seaman DO - 04/30/2024 7:34 PM EDT You were evaluated today for lightheadedness, generalized weakness, and episodes of low heart rate.Laboratory studies and imaging here were reassuring. A ZIO patch has been ordered for outpatient follow up along with cardiology referral. Return if you develop any worsening symptoms or new/concerning symptoms. documented in this encounter ED Notes * Yasmeen Kennedy RN - 04/30/2024 2:59 PM EDT Pt reports chest pain for two days. When she stands up she feels like she is going to pass out. Slightly sob. documented in this encounter Miscellaneous Notes * ED Deputy Director Of Public Works Note - Amada De Anda RN - 04/30/2024 7:56 PM EDT 1955. Pt verbalized understanding of discharge instructions. Made aware of order for zio patch, pt chose 0900 appointment on 05/01/24. Advised to follow up with cardiology and to return for any worsening symptoms. Pt ambulated steadily out of unit with belongings. * ED Deputy Director Of Public Works Note - Quin Villareal LPN - 04/30/2024 4:33 PM EDT Patient presents with complaints of chest pain x 2 days, lethargy, and shortness of breath. [facility], nothing acute was found except her heart rate would drop to 40 bpm. Today patient became light headed and dizzy and the pain in her chest got worse. On her trip to the ER she states she had an impending doom feeling, was became very light-headed and dizzy, and has been unable to stay awake. Assessment completed. See flowsheets for details. Orthostatic blood pressures checked per order. Patient became dizzy and unsteady while changing positions. Patient requested to go to the bathroom. Wheelchair was utilized. Patients gait unsteady when transferring off of wheelchair to bathroom. Patient back to bed, needs met, call king within reach and use reinforced. 171: PIV started 20 g R. AC. 172: Isolyte infusion started per order. See MAR for details. Needs met. Call king within reach and use reinforced. 1811: Rounded on patient, fluids finished. Patient states that she felt better for about 10-15 minutes but is starting to feel "groggy and zombie like" again. She states that these episodes happen approximately every 20 minutes, with the periods of feeling perky and okay not lasting long. Needs met, call king within reach and use reinforced. documented in this encounter Plan of Treatment Upcoming Encounters Date Type Department Care Team (Late st Contact Info) Description 05/04/2024 9:00 AM EDT [facility] [address] [facility] [address] Akanksha Parrish PA-C [address] [facility] [address] 06/29/2024 3:00 PM EDT Office Visit Neurology [facility] [address] [place] [address] Keren Fuller MD [address] [place] [address] 08/03/2024 8:00 AM EST Office Visit Rheumatology [facility] [address] [facility] [place], [place] [address] Jim Kearney CRNP [address] [facility] [place] [address] 08/17/2024 10:30 AM EST Imaging Radiology [facility] [address] [facility] [address] [facility] [address] 08/17/2024 11:00 AM EST Imaging [facility] [address] [facility] [address] 12/28/2024 8:30 AM EDT Office Visit Gynecology/Obstetrics [address] [address] Diana Harkins CRNP [address] [facility] [address] Scheduled Orders Name Type Priority Associated Diagnoses Orde r Schedule EXTERNAL EKG 8 TO 15 DAYS HOME ENROLLMENT Holter Routine Bradycardia Expected: 05/01/2024 (Approximate), Expires: 04/30/2025 Scheduled Procedures Name Priority Associated Diagnoses Date/Ti me COLONOSCOPY FLEXIBLE PROXIMAL DIAGNOSTIC Recall Screen for colon cancer Scheduled Referrals Name Type Priority Associated Diagnoses Orde r Schedule CARDIOLOGY REFERRAL OP Referral Within 3 days (urgent) Bradycardia Ordered: 04/30/2024 Health Maintenance Due Date Last Done Comments [...] 03/30/2029 03/30/2024, 05/18, 01/18/2021, Additional history exists DTaP,Tdap,and Td Vaccines (8 - Td or Tdap) 04/12/2030 [...] this encounter Medical Devices Implanted Type Area Waist Pleater Device Identifier Shelf Expiration Date Model / Serial / Lot Graft Healos 10 2761-60-010 - [id number] Implanted:Qty: 1 on 08/30/2008 at OR [facility] [place] N/A: Spine Lumbar [employer] 10/17/2009 [id number] / / [id number] Graft Healos c [id number] - [id number] Implanted:Qty: 1 on 08/30/2008 at OR [facility] [place] N/A: Spine Lumbar [employer] 10/17/2009 [id number] / / [id number] Tavo 5.5x80 Prebnt Ti [id number] - [id number] Implanted:Qty: 1 on 08/30/2008 at OR [facility] [place] Bilateral: Spine Lumbar Medtronic Sofamor Danek [id number] / / Expedium Ti Sfx 5.5 Lat A6 - [id number] Implanted:Qty: 1 on 08/30/2008 at OR [facility] [place] Spine Lumbar [employer]Y [id number] / / Cage Implanted:Qty: 1 on 08/30/2008 at OR [facility] [place] N/A: Spine Lumbar [employer]Y [id number] / / 70 Cm Contract Trial Lead [employer] Implanted:Qty: 1 on 11/24/2009 at OR [facility] N/A: Back [place] 07/17/2011 [id number] / / [id number] documented as of this encounter Procedures Procedure Name Priority Date/Time Associated Diagnosis Comments TROPONIN T, HIGH SENSITIVITY STAT 04/30/2024 4:40 PM EDT EXTRA LIGHT BLUE TOP STAT 04/30/2024 3:37 PM EDT DIFFERENTIAL, AUTOMATED STAT 04/30/2024 3:37 PM EDT TROPONIN T, HIGH SENSITIVITY STAT 04/30/2024 3:37 PM EDT BETA-HCG, QUANTITATIVE STAT 3:37 PM EDT COMPREHENSIVE METABOLIC PANEL STAT 04/30/2024 3:37 PM EDT CBC STAT 04/30/2024 3:37 PM EDT CBC STAT 04/30/2024 3:37 PM EDT XR CHEST 2 VIEWS STAT 04/30/2024 3:12 PM EDT RESPIRATORY PATHOGEN PANEL, PCR STAT 04/30/2024 3:02 PM EDT documented in this encounter Results * (ABNORMAL) TROPONIN T, HIGH SENSITIVITY (04/30/2024 4:40 PM EDT) Troponin T, High Sensitivity 23(H) <=14 ng/L 04/30/2024 5:01 PM EDT [facility] Blood Venous blood specimen / Unknown Venipuncture / Unknown 04/30/2024 4:40 PM EDT 04/30/2024 4:44 PM EDT Micky Seaman LAB BLOOD ORDERABLES [facility] [address] [place] [address] * (ABNORMAL) DIFFERENTIAL, AUTOMATED (04/30/2024 3:37 PM EDT) WBC 4.41 4.00 - 10.80 K/uL 04/30/2024 3:48 PM EDT LAB[facility] Neutrophils % 56.0 40.0 - 75.0 % 04/30/2024 3:48 PM EDT LAB[facility] Lymphocytes % 24.3 18.0 - 42.0 % 04/30/2024 3:48 PM EDT LAB[facility] Monocytes % 14.5(H) 1.0 - 11.0 % 04/30/2024 3:48 PM EDT LAB[facility]ORY [facility] Eosinophils % 2.9 0.0 - 6.0 % 04/30/2024 3:48 PM EDT LAB[facility] Basophils % 1.6 0.0 - 2.0 % 04/30/2024 3:48 PM EDT LAB[facility] Immature Granulocytes % 0.7 0.0 - 2.0 % 04/30/2024 3:48 PM EDT [facility] Absolute Neutrophils 2.47 1.80 - 7.70 K/uL 04/30/2024 3:48 PM EDT LAB[facility]ORY [facility] Absolute Lymphocytes 1.07 1.00 - 4.80 K/ul 04/30/2024 3:48 PM EDT LAB[facility] Absolute Monocytes 0.64 0.00 - 1.10 K/uL 04/30/2024 3:48 PM EDT LAB[facility] Absolute Eosinophils 0.13 0.00 - 0.70 K/uL 04/30/2024 3:48 PM EDT LAB[facility] Absolute Basophils 0.07 0.00 - 0.20 K/uL 04/30/2024 3:48 PM EDT LAB[facility] Absolute Immature Granulocytes 0.03 0.00 - 0.20 K/uL 04/30/2024 3:48 PM EDT [facility] Blood Venous blood specimen / Unknown Venipuncture / Unknown 04/30/2024 3:37 PM EDT 04/30/2024 3:44 PM EDT Ivy Oshea MD LAB BLOOD ORDERAB LES [facility] [address] [place] [address] * (ABNORMAL) CBC (04/30/2024 3:37 PM EDT) Pathologist [facility] WBC 4.41 4.00 - 10.80 K/uL 04/30/2024 3:48 PM EDT [facility] RBC 5.28 3.85 - 5.15 M/uL 04/30/2024 3:48 PM EDT [facility] HGB 16.2(H) 12.0 - 15.3 g/dL 04/30/2024 3:48 PM EDT [facility] HCT 46.2(H) 36.0 - 45.2 % 04/30/2024 3:48 PM EDT [facility] MCV 87.5 81.5 - 97.5 fL 04/30/2024 3:48 PM EDT [facility] MCH 30.7 27.0 - 34.0 pg 04/30/2024 3:48 PM EDT [facility] MCHC 35.1 32.0 - 36.0 g/dL 04/30/2024 3:48 PM EDT [facility] RDW 12.4 11.5 - 15.5 % 04/30/2024 3:48 PM EDT LABORATORY [facility] PLT 310 140 - 400 K/uL 04/30/2024 3:48 PM EDT [facility] MPV 10.0 6.6 - 11.1 fL 04/30/2024 3:48 PM EDT LAB[facility] nRBCs 0 <=0 /100 WBCs 04/30/2024 3:48 PM EDT [facility] Blood Venous blood specimen / Unknown Venipuncture / Unknown 04/30/2024 3:37 PM EDT 04/30/2024 3:44 PM EDT Ivy Oshea MD LAB BLOOD ORDERAB LES Performing Organization Address City/[facility]/ZIP Co de Phone Number LABORATORY [address] [address] * BETA-HCG, QUANTITATIVE (04/30/2024 3:37 PM EDT) [facility] Beta-HCG, Quantitative <0.3 <=1.0 mIU/mL 04/30/2024 4:19 PM EDT [facility] Blood Venous blood specimen / Unknown Venipuncture / Unknown 04/30/2024 3:37 PM EDT 04/30/2024 3:44 PM EDT Narrative [facility] - 04/30/2024 4:19 PM EDT hCG can serve as a screening assay [...] for postmenopausal women is <= 7 mIU/mL. Ivy Oshea MD LAB BLOOD ORDERAB LES Performing Organization Address [facility] Co de Phone Number LABORATORY [address] [address] * EXTRA LIGHT BLUE TOP (04/30/2024 3:37 PM EDT) Blood Venous blood specimen / Unknown Venipuncture / Unknown 04/30/2024 3:37 PM EDT 04/30/2024 3:44 PM EDT Ivy Oshea MD LAB BLOOD ORDERAB LES Performing Organization Address City/[facility] Co de Phone Number LABORATORY [address] [address] * (ABNORMAL) TROPONIN T, HIGH SENSITIVITY (04/30/2024 3:37 PM EDT) Troponin T, High Sensitivity 21(H) <=14 ng/L 04/30/2024 4:11 PM EDT [facility] Blood Venous blood specimen / Unknown Venipuncture / Unknown 04/30/2024 3:37 PM EDT 04/30/2024 3:44 PM EDT Ivy Oshea MD LAB BLOOD ORDERAB LES [facility] [address] [place] [address] * COMPREHENSIVE METABOLIC PANEL (04/30/2024 3:37 PM EDT) Pathologist [facility] BUN 9 6 - 20 mg/dL 04/30/2024 4:08 PM EDT LAB[facility] Creatinine 0.8 0.5 - 1.0 mg/dL 04/30/2024 4:08 PM EDT [facility] Estimated Glomerular Filtration Rate 86 >=60 mL/min 04/30/2024 4:08 PM EDT LAB[facility]ORY [facility] Comment:eGFR is calculated b ased on the CKD-EPI 2020 equation. Sodium 138 135 - 146 mmol/L 04/30/2024 4:08 PM EDT LAB[facility] Potassium 3.6 3.5 - 5.1 mmol/L 04/30/2024 4:08 PM EDT [facility] Chloride 105 98 - 107 mmol/L 04/30/2024 4:08 PM EDT [facility] CO2 22 22 - 32 mmol/L 04/30/2024 4:08 PM EDT [facility] Anion Gap 11 7 - 15 mmol/L 04/30/2024 4:08 PM EDT [facility] Glucose 88 70 - 120 mg/dL 04/30/2024 4:08 PM EDT [facility] Albumin 4.2 3.8 - 5.0 g/dL 04/30/2024 4:08 PM EDT [facility] AST 19 10 - 35 U/L 04/30/2024 4:08 PM EDT LAB[facility] Alkaline Phosphatase 74 35 - 130 U/L 04/30/2024 4:08 PM EDT LAB[facility] Bilirubin, Total 0.7 <=1.2 mg/dL 04/30/2024 4:08 PM EDT [facility] Calcium 9.1 8.4 - 10.2 mg/dL 04/30/2024 4:08 PM EDT [facility] Protein 6.7 6.0 - 8.3 g/dL 04/30/2024 4:08 PM EDT [facility] ALT 17 10 - 35 U/L 04/30/2024 4:08 PM EDT [facility] Blood Venous blood specimen / Unknown Venipuncture / Unknown 04/30/2024 3:37 PM EDT 04/30/2024 3:44 PM EDT Ivy Oshea MD LAB BLOOD ORDERAB LES [facility] [address] [place] [address] * XR CHEST 2 VIEWS (04/30/2024 3:12 PM EDT) Anatomical Region Laterality Modality Chest Digital Radiogra phy 04/30/2024 3:05 PM EDT Impressions 04/30/2024 3:27 PM EDT IMPRESSION: No acute cardiopulmonary disease. THIS DOCUMENT HAS BEEN ELECTRONICALLY SIGNED BY DIGNA BOOTH MD Narrative 04/30/2024 3:27 PM EDT PROCEDURE INFORMATION: Exam: XR Chest Exam date and time: 04/30/2024 3:05 PM Age: 48 years old Clinical indication: Other: Left side anterior chest pain x 3 days worse today. TECHNIQUE: Imaging protocol: Radiologic exam of the chest. Views: 2 views. COMPARISON: DX XR CHEST 2 VIEWS 06/05/2019 1:33 PM FINDINGS: Lungs: Unremarkable. No consolidation. Pleural spaces: Unremarkable. No pleural effusion. No pneumothorax. Heart/Mediastinum: Unremarkable. No cardiomegaly. Bones/joints: Mild spondylosis/degenerative disease of the mid upper thoracic spine. Procedure Note Digna Booth MD - 04/30/2024 PROCEDURE INFORMATION: Exam: XR Chest Exam date and time: 04/30/2024 3:05 PM Age: 48 years old Clinical indication: Other: Left side anterior chest pain x 3 days worsetoday. TECHNIQUE: Imaging protocol: Radiologic exam of the chest. Views: 2 views. COMPARISON: DX XR CHEST 2 VIEWS 06/05/2019 1:33 PM FINDINGS: Lungs: Unremarkable. No consolidation. Pleural spaces: Unremarkable. No pleural effusion. No pneumothorax. Heart/Mediastinum: Unremarkable. No cardiomegaly. Bones/joints: Mild spondylosis/degenerative disease of the mid upperthoracic spine. IMPRESSION IMPRESSION: No acute cardiopulmonary disease. THIS DOCUMENT HAS BEEN ELECTRONICALLY SIGNED BY DIGNA BOOTH MD Ivy Oshea MD RADIOLOGY (RAD GE NERAL) * RESPIRATORY PATHOGEN PANEL, PCR (04/30/2024 3:02 PM EDT) Pathologist [facility] Adenovirus by PCR Negative Negative 024 4:12 PM EDT [facility] Coronavirus 229E by PCR Negative Negative 04/30/2024 4:12 PM EDT [facility] Coronavirus HKU1 by PCR Negative Negative 04/30/2024 4:12 PM EDT [facility] Coronavirus NL63 by PCR Negative Negative 04/30/2024 4:12 PM EDT [facility] Coronavirus OC43 by PCR Negative Negative 04/30/2024 4:12 PM EDT [facility] Coronavirus SARS-CoV-2 by PCR Negative Negative 04/30/2024 4:12 PM EDT [facility] Human Metapneumovirus by PCR Negative Negative 04/30/2024 4:12 PM EDT [facility] Rhinovirus/Enterovi joey by PCR Negative Negative 04/30/2024 4:12 PM EDT [facility] Influenza A Virus by PCR Negative Negative 04/30/2024 4:12 PM EDT [facility] Influenza B Virus by PCR Negative Negative 04/30/2024 4:12 PM EDT [facility] Parainfluenza Virus 1 by PCR Negative Negative 04/30/2024 4:12 PM EDT [facility] Parainfluenza Virus 2 by PCR Negative Negative 04/30/2024 4:12 PM EDT [facility] Parainfluenza Virus 3 by PCR Negative Negative 04/30/2024 4:12 PM EDT [facility] Parainfluenza Virus 4 by PCR Negative Negative 04/30/2024 4:12 PM EDT [facility] Respiratory Syncytial Virus by PCR Negative Negative 04/30/2024 4:12 PM EDT [facility] Bordetella pertussis by PCR Negative Negative 04/30/2024 4:12 PM EDT [facility] Chlamydia pneumoniae by PCR Negative Negative 04/30/2024 4:12 PM EDT [facility] Mycoplasma pneumoniae by PCR Negative Negative 04/30/2024 4:12 PM EDT [facility] Bordetella parapertussis by PCR Negative Negative 04/30/2024 4:12 PM EDT [facility] Comment: The primers that detect Rhinovirus may cross react with some Enterorviruses. The validation of bronchial specimens, tracheal aspirates, and throats for this assay was developed and performance characteristics determined by [facility]. The validation of alternate specimen types has not been cleared or approved by the U.S. Food and Drug Administration (FDA). It has been determined that such clearance or approval is not necessary. Upper Respiratory Mid-turbinate nasal swab / Unknown Non-blood Collection / Unknown 04/30/2024 3:02 PM EDT 04/30/2024 3:12 PM EDT Ivy Oshea MD LAB MICRO - GENER AL ORDERABLES LABORATORY [address] [address] documented in this encounter Visit Diagnoses Diagnosis Generalized weakness- Primary Other malaise and fatigue Chest pain Chest pain, unspecified Bradycardia Other specified cardiac dysrhythmias Lightheadedness Dizziness and giddiness documented in this encounter Administered Medications Inactive Administered Medications - up to 3 most recent administrations Medication Order MAR Action Action Date Dose Rate Site isolyte 1,000 mL bolus infusion Intravenous, Administer entire volume within 60 minutes or less. Plasma-LYTE 148, isolyte-S, and isolyte-S pH 7.4 are considered equivalent - including for MAR barcode scanning., ONCE, 1 dose, On Kiana 04/30/24 at 1745 New Bag 04/30/2024 5:22 PM EDT 1,000 mL 1200 mL/hr documented in this encounter Active and Recently Administered Medications Times are shown in EDT. Scheduled Medication Order 04/28/2024 04/29/2024 04/30/2024 isolyte 1,000 mL bolus infusion (COMPLETED) Intravenous, Administer entire volume within 60 minutes or less. Plasma-LYTE 148, isolyte-S, and isolyte-S pH 7.4 are considered equivalent - including for MAR barcode scanning., ONCE, 1 dose, On [place]iana 04/30/24 at 1745 1722 (New Bag - Prov ider: Quin Villareal LPN)[id number] (Stopped - Provider: Quin Villareal LPN) documented in this encounter Additional Health Concerns Infection Onset Date Last Indicated Resolved Time Respiratory Rule-Out 04/30/2024 04/30/2024 024 4:12 PM EDT COVID-19 Rule-Out 04/30/2024 04/30/2024 04/30/2024 4:12 PM EDT documented as of this encounter Advance Directives * Full Code [...] 9:09 AM 08/30/2008 5:07 PM Care Teams Element Setter Relationship Specialty Start Date End Date Akanksha Parrish [facility]-C [address] [facility] [address] P[facility] - General Physician Business Continuity Director 04/23/23 documented as of this encounter
--- OUTSIDE RECORDS SUMMARY | 2024-06-28 01:44 | External Medical Summary ---
Author Name Unknown Address Unknown Organization K1F:[facility]AT[facility] [place] [id number] Laboratory Report Ordering Provider Test Date Status HUI CERRATO 04/30/2024 16:40:00 Final Observation Date Value Abnormality Reference (Units ) Status Troponin T 04/30/2024 16:40:00 23 Above high normal < =14 (ng/L) Final Performing Location LABORATORY [facility] - [address] [place] [id number]
--- OUTSIDE RECORDS SUMMARY | 2024-06-28 01:44 | External Medical Summary | Summary of Care ---
Author Name Unknown Organization [facility] Address [address] [place] [address] Phone [phone] Care Team Providers Care Parimutuel Clerk Name Role Phone Akanksha Parrish PA-C Primary Care Provider [phone] Reason for Referral * Precert (Diagnostic Medical) (Within 10 days (routine)) - Pending Review Specialty Diagnoses / Procedures Referred By Robson t Referred To Contact Cardiac Studies Diagnoses Dizziness Chest pain, unspecified type Procedures ECHO, STRESS (EXERCISE) W/ PHYSICIAN [facility] [address] [facility] [address] Referral ID Status Reason Start Date Expiration Date Visits Requested Visits Authorized [id number] Pending Review Precert 06/26/2024 08/11/[phone] Reason for Visit * Reason Comments Follow Up Encounter Details Date Type Department Care Team ([facility] Contact Info) Description 06/10/2024 11:30 AM EDT Office Visit Cardiology [facility] [address] [place] [address] Aiyana Mondragon DO [address] [facility] [place] [address] Dizziness*; Chest pain, unspecified type Allergies Active Allergy Reactions Criticality Noted Date Comments Tramadol Abdominal pain High 02/19/2018 CLEMONS Valacyclovir 06/13/2021 rash documented as of this encounter (statuses as of 06/15/2024) Medications Medication Sig Dispensed Refills Start Date [...] the evening. Take with meals. Active Evening Clymer Oil 500 MG Oral Capsule Take by mouth. A ctive Albuterol Sulfate HFA 108 (90 Base) MCG/ACT Inhalation Aerosol SolutionIndications: Acute bronchitis, antibiotics not indicated inhale 2 puffs by mouth four times daily every morning, at noon, every evening, and before bedtime 18 g 1 06/01/2024 Active documented as of this encounter (statuses as of 06/15/2024) Active Problems Problem Noted Date Diagnosed Date [...] as of this encounter (statuses as of 06/15/2024) Resolved Problems Problem Noted Date Diagnosed Date [...] as of this encounter (statuses as of 06/15/2024) Immunizations Name Administration Dates Next Due COVID-19 [...] Sign Reading Time Taken Comments Blood Pressure 110/70 06/10/2024 11:44 AM EDT Pulse 60 06/10/2024 11:44 AM EDT Temperature - - Respiratory Rate - - Oxygen Saturation 99% 06/10/2024 11: 44 AM EDT Inhaled Oxygen Concentration - - Weight 85.6 kg (188 lb 11.2 oz) 024 11:44 AM EDT Height 175.3 cm (5' 9") 06/10/2024 11:4 4 AM EDT Body Mass Index 27.87 06/10/2024 11:44 AM EDT documented in this encounter Progress Notes * Aiyana Mondragon DO - 06/10/2024 12:01 PM EDT Cardiology Outpatient Follow-up Moni Maria is a 48 year old female with the following history: - Hypertension - Subcutaneous lupus erythematosus (diagnosed 2020), on Plaquenil - Lumbar spondylosis and DDD s/p L5-S1 diskectomy (03/2006), L5-S1 TLIF +L5-S1 Legacy with PSF (05/2006), L4-5 PLIF and revision L4-S1 Legacy with PSF (08/2008) - Recurrent UTIs - Migraines - Anxiety - Depression She is seen in follow-up of bradycardia. Last seen in clinic on 05/06/2024. Echo ordered. Ziopatch had been ordered by ER. Went to [facility] on 04/30/2024 for chest pain and lightheadedness. Noted to have positive orthostatics. Give IV fluids with improvement in symptoms. Seen at [facility] on 04/29/2024 for similar symptoms and reports HR in 40s intermittently. HPI: Some days doing ok then other days feeling very tired and unable to get off the couch. There has been improvement in sensation of dizziness and imbalance. Past Saturday at granddaughter's birthday constitution party, was suddenly overcome with weakness and tiredness,needed to immediately sit down. Feeling lasted for couple of days before returning to normal. Has been working. Seems to be ok at work but upon getting home, is severely exhausted. Intermittent chest pain continues. Severe heartburn started few weeks ago. Past Medical History: Diagnosis Date Abnormal Papanicolaou smear of cervix and cervical HPV persitent inflmm, endo cx polyp Adjustment disorder with depressed mood for 13 years Body mass index 40 and over, adult Breast signs and symptoms 2/ Bloody nipple d/c - Bleznak - trauma GERD (gastroesophageal reflux disease) HTN, goal below 130/80 INFORMATION lumbar disk disease Lumbago herniated lumbar spine Other anxiety states Patient Active Problem List Diagnosis Displacement of lumbar intervertebral disc without myelopathy ABN PAP SMEAR-CERVIX ADJ DISORDER W/DEPRES MOOD Postlaminectomy syndrome, lumbar Lumbosacral spondylosis Thoracic and lumbosacral neuritis MEDICATION USE AGREEMENT Hypokalemia Lichen sclerosus of female genitalia Other bipolar disorder (HCC) HTN, goal below 130/80 Past Surgical History: Procedure Laterality Date COLONOSCOPY, DIAGNOSTIC (RECTUM) 12/31/2022 normal, repeat 10 yrs / COLONOSCOPY FLEXIBLE PROXIMAL DIAGNOSTIC performed by Patricio Funes MD at ENDOSCOPY [facility] CRYOCAUTERY OF CERVIX 03/16/2001 for persistent d/c DILATION AND CURETTAGE (D&C) AGE 16 D&C IMPLANT EPIDURAL NEUROELECTRODES 11/24/2009 PERCUTANEOUS IMPLANTATION NEUROSTIMULATOR EPIDURAL performed by HEATHER HUERTA at OR [facility] INFORMATION 09/16/2002 fx ankle IOF-CT HEAD /BRAIN W/O CONTRAST 07/13/1999 negative LAPAROSCOPY, DIAGNOSTIC AGE 16 Laparoscopy-Pelvis(diagnostic) LUMBAR HEMILAMINECTOMY 01/23/2013 LAMINOTOMY DECOMPRESSION NERVE ROOT POSTERIOR LUMBAR performed by Manuela Melendez MD at OR [facility] LUMBAR SPINE FUSION, POST INTERBODY 08/30/2008 ARTHRODESIS SPINE POSTERIOR INTERBODY WITH LAMINECTOMY LUMBAR performed by Manuela MELENDEZ at OR [facility] LUMBAR SPINE FUSION, POSTEROLATERAL 08/30/2008 ARTHRODESIS SPINE POSTERIOR LUMBAR performed by Manuela MELENDEZ at OR [facility] MAMMOGRAM BREAST NEEDLE BIOPSY CORE RIGHT Right 02/24/2024 PARTIAL REMOVAL/REVISION OF HYMEN AGE 16 imperforate hymen repair REMOVE SPINE FIXATION DEVICE, POST 01/23/2013 REMOVAL POSTERIOR SPINAL NONSEGMENTAL INSTRUMENTATION performed by Manuela Melendez MD at OR [facility] SPINAL FUSION, 6 OR LESS VERT, POST 05/17/2006 L5 S1 Family History Problem Relation Name Age of Onset Heart Disorder Father Hodgkin's lymphoma Father Diabetes Grandmother (Maternal) Breast Cancer Grandmother (Maternal) Renal Hx Grandfather (Maternal) questionable renal cyst Diabetes Grandmother (Paternal) Breast Cancer Grandmother (Paternal) Social History Tobacco Use Smoking status: Former Current packs/day: 0.00 Types: Cigarettes, Vaporizer Start date: 11/14/1998 Quit date: 11/14/2016 Years since quittin.5 Passive exposure: Past Smokeless tobacco: Former Quit date: 07/08/2014 Vaping Use Vaping status: Every Day Substances: Nicotine, Flavoring Devices: Disposable Substance Use Topics Alcohol use: No Comment: rare Drug use: No Review of patient's allergies indicates: Allergen Reactions Tramadol Abdominal pain CLEMONS Valtrex [Valacyclovir] rash Current Outpatient Medications Medication Sig Dispense Refill lamoTRIgine 200 MG Oral Tablet Take 1 Tablet by mouth every evening. Total of 300 mg daily 30 Tab 5 albuterol sulfate (PROVENTIL) (2.5 MG/3ML) 0.083% nebulizer solution Inhale 1 Vial via nebulizer every 4 hours as needed for Wheezing. 120 Vial 5 Levonorgestrel 20 MCG/24HR Intrauterine Intrauterine Device (Mirena) Insert 1 Each into uterus once. Cetirizine HCl 10 MG Oral Tablet Take 1 Tablet by mouth in the morning and 1 Tablet before bedtime.60 Tab 0 Ziprasidone HCl 60 MG Oral Capsule (Geodon) 1 daily Ondansetron HCl 8 MG Oral Tablet (Zofran) Take by mouth 1 Tablet every 8 hours as needed for Nausea. 20 Tablet 0 Rizatriptan Benzoate 10 MG Oral Tablet (Maxalt) at onset of headache, may repeat in two hours Up totwo pills in 24 hours. 10 Tablet 0 lamoTRIgine 150 MG Oral Tablet (LaMICtal) Hydroxychloroquine Sulfate 200 MG Oral Tablet (Plaquenil) Take 2 Tablets by mouth at bedtime. 180 Tablet 3 buPROPion HCl ER (XL) 150 MG Oral Tablet Extended Release 24 Hour (Wellbutrin XL) Take 1 Tablet by mouth in the morning. Topiramate 100 MG Oral Tablet (topAMAX) TAKE 1 TABLET BY MOUTH TWICE A DAY 180 Tablet 1 Nitrofurantoin Macrocrystal 100 MG Oral Capsule (Macrodantin) Take one capsule as needed 30 Capsule3 Gabapentin 800 MG Oral Tablet (Neurontin) TAKE 1 TABLET BY MOUTH THREE TIMES DAILY 270 Tablet 0 Linzess 145 MCG Oral Capsule (linaCLOtide) TAKE 1 CAPSULE BY MOUTH ONCE DAILY BEFORE BREAKFAST 90 Capsule 1 Meloxicam 15 MG Oral Tablet (Mobic) TAKE ONE TABLET BY MOUTH IN THE MORNING FOR PAIN (Patient taking differently: as needed.) 90 Tablet 1 hydroCHLOROthiazide 25 MG Oral Tablet (Hydrodiuril) Take 0.5 Tablets by mouth in the morning. Probiotic & Acidophilus Ex St Oral Capsule Take 1 Capsule by mouth in the morning and 1 Capsuleat noon and 1 Capsule in the evening. Take with meals. Evening Clymer Oil 500 MG Oral Capsule Take by mouth. Albuterol Sulfate HFA 108 (90 Base) MCG/ACT Inhalation Aerosol Solution inhale 2 puffs by mouth four times daily every morning, at noon, every evening, and before bedtime 18 g 1 No current facility-administered medications for this visit. ROS: Constitutional: (-) weight loss, fever, or shaking chills. Eyes: (-) double vision, blurred vision , amaurosis fugax, or eye pain Ear, Nose, Throat and Mouth: (-) hearing, trouble swallowing, or epistaxis. CV: see HPI Respiratory: (-) productive cough or wheezing; otherwise, see HPI. Gastrointestinal: (-) melena, bright red blood per rectum, constipation, diarrhea, or post prandialabdominal pain. Genitourinary: (-) significant nocturia, increased frequency or hematuria. Neurological: (-) deficits Psychiatric: (-) depression or significant emotional instability Endocrine: (-) intolerance to heat/cold Hematologic: (-) abnormal bleeding or bruising Skin: (-) rash or wounds. PHYSICAL EXAMINATION BP 110/70 (BP Site: Left Arm, BP Position: Sitting, BP Cuff Size: Large) | Pulse 60 | Ht 1.753 m (5' 9") | Wt 85.6 kg (188 lb 11.2 oz) | SpO2 99% | BMI 27.87 kg/m | BSA 2.04 m Body mass index is 27.87 kg/m. Constitutional: no acute distress HEENT: normal: normocephalic, atraumatic; no masses, tenderness, or adenopathy Neck: supple, normal range of motion CV: normal rate and rhythm, no murmur, gallops or rub Chest: normal respiratory effort, lungs clear to auscultation and percussion Abdomen: normal: soft, bowel sounds normal, no masses, tenderness or organomegaly Musculoskeletal: (-) negative Extremities: no clubbing, cyanosis, or edema, otherwise grossly normal, warm, and dry Skin: warm, dry, intact: Laboratory Data Review: Component Latest Ref Rng 04/30/2024 CREATININE 0.5 - 1.0 mg/dL 0.8 EGFR >=60 mL/min 86 POTASSIUM 3.5 - 5.1 mmol/L 3.6 GLUCOSE 70 - 120 mg/dL 88 BUN 6 - 20 mg/dL 9 SODIUM 135 - 146 mmol/L 138 CHLORIDE 98 - 107 mmol/L 105 CO2 22 - 32 mmol/L 22 ANION GAP 7 - 15 mmol/L 11 CALCIUM 8.4 - 10.2 mg/dL 9.1 Albumin 3.8 - 5.0 g/dL 4.2 AST 10 - 35 U/L 19 Alkaline Phosphatase 35 - 130 U/L 74 Bilirubin, Total <=1.2 mg/dL 0.7 Protein 6.0 - 8.3 g/dL 6.7 ALT 10 - 35 U/L 17 CARDIAC STUDIES: EK04/30/2024: Sinus bradycardia, Qtc 445 ms 05/07/2014: NSR, Qtc 452 ms 04/14/2024: NSR, Qtc 450 ms TTE (05/21/2024): Interpretation Summary Calculated LV ejection Fraction = 66% (three dimensional volumes). The LV wall thickness is normal. The right ventricular cavity size and function is normal There is no significant aortic regurgitation. Mild mitral regurgitation is present. Mild tricuspid regurgitation is present. No pericardial effusion is noted. Normal IVC size and collapsability with inspiration indicates a normal right atrial pressure of 3 mmHg. The estimated pulmonary artery systolic pressure is 21mm Hg. Ziopatch (04/2024): ONCLUSIONS: Duration: 13 days, 13 hours (after artifact removed) Patient had a min HR of 48 bpm, max HR of 131 bpm, and avg HR of 70 bpm. Predominant underlying rhythm was Sinus Rhythm. Isolated SVEs were rare (<1.0%), SVE Couplets were rare (<1.0%), and SVE Triplets were rare (<1.0%). Isolated VEs were rare (<1.0%), and no VE Couplets or VE Triplets were present. No sustained or symptomatic dysrhythmia recorded. Frequent symptoms reported including 97 trigger events, and 50 diary entries. Majority of symptomatic events correlate with normal sinus rhythm. IMPRESSION: Chest pain. Dizziness. Has improved since last visit. TTE with no significant structural heart disease and preserved EF. Has been noted to have positive orthostatics at ER visit last month. 3. Bradycardia. Qtc WNL on recent EKG, per patient prior EKG done at OSH showed QT prolongation. Patient has been on Plaqeunil since 2020 which has an association with conduction system abnormalities and cardiomyopathy. Ziprasidone also has association with conduction system abnormalities, QT prolongation. Ziopatch (04/2024) - no symptomatic dysthymias. 4. Hypertension, controlled. 5. SCLE, on Plaquenil. Discussed with rheumatology, unlikely that patient is experiencing progression to systemic disease.She has previously not exhibited any signs/symptoms concerning for systemic lupus. PLAN: Discontinue HCTZ. Monitor BP daily at home. Schedule stress echo in light of chest pain. Patient's symptoms could potentially be related to some of her anxiety/depression medications. Consider revisiting regimen/dosing with prescribing providers. Follow-up to be determined based on above results. Aiyana Mondragon DO Cardiology [facility] [address] [address] 06/10/2024 documented in this encounter Plan of Treatment Upcoming Encounters Date Type Department Care Team (Late st Contact Info) Description 06/26/2024 2:30 PM EDT Appointment Cardiac Studies [address] [address] 06/29/2024 3:00 PM EDT Office Visit Neurology [facility] [address] [facility] [place] [address] Keren Fuller MD [address] [facility] [place] [address] 08/03/2024 8:00 AM EST Office Visit Rheumatology [address] [place] [address] Jim Kearney CRNP [address] [place] [address] [place] [address] 08/17/2024 10:30 AM EST Imaging Radiology [facility] [address] [facility] [place] [address] 08/17/2024 11:00 AM EST Imaging Radiology [address] [place] [address] 12/28/2024 8:30 AM EDT Office Visit Gynecology/Obstetrics [address] [place] [address] Diana Harkins CRNP [address] [place] [address] Scheduled Orders Name Type Priority Associated Diagnoses Orde r Schedule ECHO, STRESS (EXERCISE) W/ PHYSICIAN Echocardiology Routine Dizziness Chest pain, unspecified type Expected: 06/11/2024, Expires: 07/10/2025 Scheduled Procedures Name Priority Associated Diagnoses Date/Ti [...] shot) (#1) 2024 10/16/2018 Mammogram 02/18/2025 02/19/2024, 06/11/2023, 02/04/2023, Additional history exists GFR 04/30/2025 04/30/2024, [...] this encounter Medical Devices Implanted Type Area Auto Painter Helper Device Identifier Shelf Expiration Date Model / Serial / Lot Graft Healos 10 2761-60-010 - [id number] Implanted:Qty: 1 on 08/30/2008 at OR [facility] N/A: Spine Lumbar [employer] 10/17/2009 [id number] / / [id number] Graft Healos [facility] [id number] - [id number] Implanted:Qty: 1 on 08/30/2008 at OR [facility] N/A: Spine Lumbar [employer] 10/17/2009 [id number] / / [id number] Tavo 5.5x80 Prebnt Ti [id number] - [id number] Implanted:Qty: 1 on 08/30/2008 at OR [facility] Bilateral: Spine Lumbar Medtronic Sofamor Danek [id number] / / Expedium Ti Sfx 5.5 Lat A6 - [id number] Implanted:Qty: 1 on 08/30/2008 at OR [facility] Spine Lumbar [employer] [id number] / / Cage Implanted:Qty: 1 on 08/30/2008 at OR [facility] N/A: Spine Lumbar [employer] [id number] / / 70 Cm Contract Trial Lead [id number] Implanted:Qty: 1 on 11/24/2009 at OR [facility] N/A: Back [place] 07/17/2011 [id number] / / [id number] documented as of this encounter Visit Diagnoses Diagnosis Dizziness- Primary Dizziness and giddiness Chest pain, unspecified type documented in this encounter Advance Directives * [...] 9:09 AM 08/30/2008 5:07 PM Care Teams Parimutuel Clerk Relationship Specialty Start Date End Date Akanksha Parrish PA-C [address] [facility] [place] [address] PCP - General Physician Instructor Adjunct Surgical Technician 04/23/23 documented as of this encounter
--- OUTSIDE RECORDS SUMMARY | 2024-06-28 01:44 | External Medical Summary ---
Author Name Unknown Address Unknown Organization K1F:[facility]ORY [facility] - [address] [facility] [address] [address] Laboratory Report Ordering Provider Test Date Status KAREEM WEST 04/30/2024 15:02:41 Final ADMITTED patient Observation Date Value Abnormality Reference (Units ) Status Adenovirus DNA [Presence] in Nasopharynx by BEAU with non-probe detection 04/30/2024 15:02:41 Negative Negative Final Human coronavirus 229E RNA [Presence] in Nasopharynx by BEAU with non-probe detection 04/30/2024 15:02:41 Negative Negative Final Human coronavirus HKU1 RNA [Presence] in Nasopharynx by BEAU with non-probe detection 04/30/2024 15:02:41 Negative Negative Final Human coronavirus NL63 RNA [Presence] in Nasopharynx by BEAU with non-probe detection 04/30/2024 15:02:41 Negative Negative Final Human coronavirus OC43 RNA [Presence] in Nasopharynx by BEAU with non-probe detection 04/30/2024 15:02:41 Negative Negative Final SARS-CoV-2 (COVID-19) RNA [Presence] in Nasopharynx by BEAU with non-probe detection 04/30/2024 15:02:41 Negative Negative Final Human metapneumovirus RNA [Presence] in Nasopharynx by BEAU with non-probe detection 04/30/2024 15:02:41 Negative Negative Final Rhinovirus+Enterovirus RNA [Presence] in Nasopharynx by BEAU with non-probe detection 04/30/2024 15:02:41 Negative Negative Final Influenza virus A RNA [Presence] in Nasopharynx by BEAU with non-probe detection 04/30/2024 15:02:41 Negative Negative Final Influenza virus B RNA [Presence] in Nasopharynx by BEAU with non-probe detection 04/30/2024 15:02:41 Negative Negative Final Parainfluenza virus 1 RNA [Presence] in Nasopharynx by BEAU with non-probe detection 04/30/2024 15:02:41 Negative Negative Final Parainfluenza virus 2 RNA [Presence] in Nasopharynx by BEAU with non-probe detection 04/30/2024 15:02:41 Negative Negative Final Parainfluenza virus 3 RNA [Presence] in Nasopharynx by BEAU with non-probe detection 04/30/2024 15:02:41 Negative Negative Final Parainfluenza virus 4 RNA [Presence] in Nasopharynx by BEAU with non-probe detection 04/30/2024 15:02:41 Negative Negative Final Respiratory syncytial virus RNA [Presence] in Nasopharynx by BEAU with non-probe detection 04/30/2024 15:02:41 Negative Negative Final Bordetella pertussis.pertussis toxin promoter region [Presence] in Nasopharynx by BEAU with non-probe detection 04/30/2024 15:02:41 Negative Negative Final Chlamydophila pneumoniae DNA [Presence] in Nasopharynx by BEAU with non-probe detection 04/30/2024 15:02:41 Negative Negative Final Mycoplasma pneumoniae DNA [Presence] in Nasopharynx by BEAU with non-probe detection 04/30/2024 15:02:41 Negative Negative Final Bordetella parapertussis [id number] DNA [Presence] in Nasopharynx by BEAU with non-probe detection 04/30/2024 15:02:41 Negative Negative Final
The primers that detect Rhinovirus may cross react with some Enterorviruses. The validation of bronchial specimens, tracheal aspirates, and throats for this assay was developed and performance characteristics determined by [employer]. The validation of alternate specimen types has not been cleared or approved by the U.S. Food and Drug Administration (FDA). It has been determined that such clearance or approval is not necessary. [facility] [address] [facility] [address] [facility] [address]
--- OUTSIDE RECORDS SUMMARY | 2024-06-28 01:44 | External Medical Summary ---
Author Name Unknown Address Unknown Organization K1F:LABORATORY [facility] - [address] [place] [address] Laboratory Report Ordering Provider Test Date Status KAREEM WEST 04/30/2024 15:37:00 Final Observation Date Value Abnormality Reference (Units ) Status WBC, Total 04/30/2024 15:37:00 4.41 4.00-10.80 (K/uL) Final RBC 04/30/2024 15:37:00 5.28 3.85-5.15 (M/uL) Final Hemoglobin 04/30/2024 15:37:00 16.2 Above high normal 12.0-15.3 (g/dL) Final HCT 04/30/2024 15:37:00 46.2 Above high normal 36.0-45.2 (%) Final MCV 04/30/2024 15:37:00 87.5 81.5-97.5 (fL) Final MCH 04/30/2024 15:37:00 30.7 27.0-34.0 (pg) Final MCHC 04/30/2024 15:37:00 35.1 32.0-36.0 (g/dL) Final RDW 04/30/2024 15:37:00 12.4 11.5-15.5 (%) Final Platelets 04/30/2024 15:37:00 310 140-400 (K/uL) Final MPV 04/30/2024 15:37:00 10.0 6.6-11.1 (fL) Final Nucleated erythrocytes/100 leukocytes [Ratio] in Blood by Automated count 04/30/2024 15:37:00 0 <=0 (/100 WBCs) Final Performing Location LABORATORY [facility] - [address] [place] [address]
--- OUTSIDE RECORDS SUMMARY | 2024-06-28 01:44 | External Medical Summary ---
Author Name Unknown Address Unknown Organization K1F:LABORATORY [facility] - [address] [address] Laboratory Report Ordering Provider Test Date Status KAREEM WEST 04/30/2024 15:37:00 Final Observation Date Value Abnormality Reference (Units ) Status SYNC LEUKOCYTES IN BLOOD BY AUTOMATED COUNT 04/30/2024 15:37:00 4.41 4.00-10.80 (K/uL) Final Segs 04/30/2024 15:37:00 56.0 40.0-75.0 (%) Final Lymphs % 04/30/2024 15:37:00 24.3 18.0-42.0 (%) Final Monos 04/30/2024 15:37:00 14.5 Above high normal 1.0-11.0 (%) Final Eosinophils 04/30/2024 15:37:00 2.9 0.0-6.0 (%) Final Basos 04/30/2024 15:37:00 1.6 0.0-2.0 (%) Final Immature Granulocyte, Percent 04/30/2024 15:37:00 0.7 0.0-2.0 (%) Final Absolute Segs 04/30/2024 15:37:00 2.47 1.80-7.70 (K/uL) Final Lymphs, absolute 04/30/2024 15:37:00 1.07 1.00-4.80 (K/ul) Final Monos, Abs 04/30/2024 15:37:00 0.64 0.00-1.10 (K/uL) Final Eos, Abs 04/30/2024 15:37:00 0.13 0.00-0.70 (K/uL) Final Basos, Abs 04/30/2024 15:37:00 0.07 0.00-0.20 (K/uL) Final Immature Granulocytes, Number 04/30/2024 15:37:00 0.03 0.00-0.20 (K/uL) Final Performing Location LABORATORY [facility] - [address] [place] [address]
--- OUTSIDE RECORDS SUMMARY | 2024-06-28 01:44 | External Medical Summary ---
Author Name Unknown Address Unknown Organization K1F:LABORATORY [facility] - [address] [place] [address] Laboratory Report Ordering Provider Test Date Status KAREEM WEST 04/30/2024 15:37:00 Final Collect NOW Observation Date Value Abnormality Reference (Units ) Status Troponin T 04/30/2024 15:37:00 21 Above high normal < =14 (ng/L) Final Performing Location LABORATORY [facility] - [address] [place] [address]
--- OUTSIDE RECORDS SUMMARY | 2024-06-28 01:44 | External Medical Summary | Summary of Care ---
Author Name Unknown Organization [facility] Address [address] [place] [address] Phone [phone] Care Team Providers Care Polymer Scientist Name Role Phone Akanksha Parrish PA-C Primary Care Provider [phone] Reason for Referral * Evaluate & Treat - Unlimited Visits (Within 30 days (routine)) - Authorized Specialty Diagnoses / Procedures Referred By Contact Referred To Contact Cardiovascular Medicine / Cardiology Diagnoses Bradycardia HTN, goal below 130/80 Akanksha Parrish PA-C [address] [place] [address] Referral ID Status Reason Start Date Expiration Date Visits Requested Visits Authorized [id number] Authorized Specialty Services Required 05/04/2024 999 999 Question Answer Referral Priority Within 30 days (routine) Where should this appointment be scheduled? [facility] To which of the following clinics are you referring your patient? General Cardiology Clinic Reason for Visit * Reason Comments Hospital Follow-Up Patient states that she is here for ER follow up. Encounter Details Date Type Department Care Team (Late st Contact Info) Description 05/04/2024 9:00 AM EDT Office Visit [facility] [address] [place] [phone] Akanksha Parrish PA-C [address], [place] [id number] Bradycardia*; HTN, goal below 130/80 Allergies Active Allergy Reactions Criticality Noted Date Comments Tramadol Abdominal pain High 02/19/2018 CLEMONS Valacyclovir 06/13/2021 rash documented as of this encounter (statuses as of 05/04/2024) Medications Medication Sig Dispensed Refills Start Date End Date Status lamoTRIgine 200 MG Oral Tablet Take 1 Tablet by mouth every evening. Total of 300 mg daily 30 Tab 5 09/22/2018 Active albuterol sulfate (PROVENTIL) (2.5 MG/3ML) 0.083% nebulizer solutionIndications :Acute bronchitis, antibiotics not indicated Inhale 1 Vial [...] Active Ondansetron HCl 8 MG Oral Tablet (Zofran)Indications :Nausea Take by mouth 1 Tablet every 8 [...] HFA 108 (90 Base) MCG/ACT Inhalation Aerosol SolutionIndications :Acute bronchitis, antibiotics not indicated Inhale 2 Puffs by mouth in the morning and 2 Puffs at noon and 2 Puffs in the evening and 2 Puffs before bedtime. 18 g 1 11/04/2023 Active Topiramate 100 MG Oral Tablet (topAMAX) TAKE 1 TABLET BY MOUTH TWICE A DAY 180 Tablet 1 02/03/2024 Active Nitrofurantoin Macrocrystal 100 MG Oral Capsule (Macrodantin) Take one capsule as needed 30 Capsule 3 03/30/2024 Active Gabapentin 800 MG Oral Tablet (Neurontin) TAKE 1 TABLET BY MOUTH THREE TIMES DAILY 270 Tablet 04/02/2024 Active Linzess 145 MCG Oral Capsule (linaCLOtide)Indica tions:Drug-induced constipation TAKE 1 CAPSULE BY MOUTH ONCE DAILY BEFORE BREAKFAST 90 Capsule 1 05/01/2024 Active Meloxicam 15 MG Oral Tablet (Mobic)Indications: New daily persistent headache,Lumbar radiculopathy TAKE ONE TABLET BY MOUTH IN THE MORNING FOR PAIN 90 Tablet 1 05/01/2024 Active hydroCHLOROthiazide 25 MG Oral Tablet (Hydrodiuril) Take 0.5 Tablets by mouth in the morning. 05/04/2024 Active hydroCHLOROthiazide 25 MG Oral Tablet (Hydrodiuril) TAKE 1 TABLET BY MOUTH ONCE DAILY 90 Tablet 1 02/28/2024 Discontinue d(Refill) documented as of this encounter (statuses as of 05/04/2024) Active Problems Problem Noted Date Diagnosed Date [...] as of this encounter (statuses as of 05/04/2024) Resolved Problems Problem Noted Date Diagnosed Date [...] as of this encounter (statuses as of 05/04/2024) Immunizations Name Administration Dates Next Due COVID-19 [...] Exposure: Past Smokeless Tobacco: Former Quit: 07/08/2014 Tobacco Cessation:Counseling Given: Not Answered Alcohol Use Standard Drinks/Week Comments No 0 [...] Sign Reading Time Taken Comments Blood Pressure 118/82 05/04/2024 8:51 AM EDT Pulse 63 05/04/2024 8:51 AM EDT Temperature 35.8 C (96.4 F) 05/04/2024 8:51 AM ED T Respiratory Rate 18 05/04/2024 8:51 AM EDT Oxygen Saturation 99% 05/04/2024 8:51 AM EDT Inhaled Oxygen Concentration - - Weight 81.8 kg (180 lb 6.4 oz) 05/04/2024 8:51 A M EDT Height 175.3 cm (5' 9") 05/04/2024 8:51 AM EDT Body Mass Index 26.64 05/04/2024 8:51 AM EDT documented in this encounter Progress Notes * Akanksha Parrish PA-C - 05/04/2024 9:09 AM EDT Images from the original note were not included. History of Present Illness Moni Maria is a 48 year old female that presents for Hospital Follow-Up (Patient states that sheis here for ER follow up. ) Here for er f/u. Was to [place] er on 05/02/2024 for CP Had been having this for 2-3 days [place] worse - gen weakness and light headedness [place] like she might lose consciousness + orthostatics Some bradycardia while there Labs not consistent with ACS For 2-3 weeks prior she was super nauseas and could not eat That is the only precipitating thing she recalls Then had a week where she was fine They thought it was a bug going around as edison had the same thing When she was at [facility] , her hr was int eh 3-'s and 40's They suggested heart monitor - zio patch - we unable to put on in the er Past Medical History: Diagnosis Date Abnormal Papanicolaou smear of cervix and cervical HPV persitent inflmm, endo cx polyp Adjustment disorder with depressed mood for 13 years Body mass index 40 and over, adult Breast signs and symptoms 2/00 Bloody nipple d/c - Bleznak - trauma GERD (gastroesophageal reflux disease) HTN, goal below 130/80 INFORMATION lumbar disk disease Lumbago herniated lumbar spine Other anxiety states Linzess 145 MCG Oral Capsule (linaCLOtide) Meloxicam 15 MG Oral Tablet (Mobic) Gabapentin 800 MG Oral Tablet (Neurontin) Nitrofurantoin Macrocrystal 100 MG Oral Capsule (Macrodantin) hydroCHLOROthiazide 25 MG Oral Tablet (Hydrodiuril) Topiramate 100 MG Oral Tablet (topAMAX) Albuterol Sulfate HFA 108 (90 Base) MCG/ACT Inhalation Aerosol Solution buPROPion HCl ER (XL) 150 MG Oral Tablet Extended Release 24 Hour (Wellbutrin XL) Hydroxychloroquine Sulfate 200 MG Oral Tablet (Plaquenil) lamoTRIgine 150 MG Oral Tablet (LaMICtal) Rizatriptan Benzoate 10 MG Oral Tablet (Maxalt) Ondansetron HCl 8 MG Oral Tablet (Zofran) Ziprasidone HCl 60 MG Oral Capsule (Geodon) Cetirizine HCl 10 MG Oral Tablet Levonorgestrel 20 MCG/24HR Intrauterine Intrauterine Device (Mirena) albuterol sulfate (PROVENTIL) (2.5 MG/3ML) 0.083% nebulizer solution lamoTRIgine 200 MG Oral Tablet Lab Results Component Value Date/Time TSH - [facility] 0.72 03/30/2024 09:16 AM TSH - [facility] 0.63 11/01/2014 12:58 PM TSH - [facility] 0.58 06/03/2014 03:20 PM TSH - [facility] 1.06 02/26/2014 09:40 AM T4 Results: Lab Results Component Value Date/Time T4, FREE - [facility] 1.1 03/30/2024 09:16 AM T4, FREE - [facility] 0.68 (L) 05/16/2011 11:49 AM T4, FREE - [facility] 0.95 09/04/2007 10:42 AM T4, FREE - [facility] 1.02 04/22/2007 12:43 PM Physical Exam Vitals: 05/04/24 0851 Temp: 35.8 C (96.4 F) Pulse: 63 Resp: 18 SpO2: 99% BP: 118/82 BMI: 26.63 BP Readings from Last 3 Encounters: 05/04/24 118/82 04/30/24 107/66 03/30/24 116/88 Wt Readings from Last 3 Encounters: 05/04/24 81.8 kg (180 lb 6.4 oz) 04/30/24 81.6 kg (180 lb) 03/30/24 85.7 kg (189 lb) BMI Readings from Last 3 Encounters: 05/04/24 26.64 kg/m 04/30/24 26.58 kg/m 03/30/24 29.60 kg/m Ht Readings from Last 3 Encounters: 05/04/24 1.753 m (5' 9") 04/30/24 1.753 m (5' 9") 03/30/24 1.702 m (5' 7") General: alert, healthy, and no distress Head: Normocephalic, No masses, lesions, tenderness or abnormalities Eye Exam: PERRLA, extraocular movements intact, conjunctiva are pink and non- injected, sclera clear Heart: regular rate & rhythm, no murmur, and no gallops Lungs: chest symmetric with normal AP diameter, no chest deformities noted, no chest wall tenderness, lungs clear to auscultation Extremities: less than 2 second capillary refill, no joint deformities, effusion, or inflammation Skin: skin color, texture, turgor are normal, no rashes or significant lesions Assessment and Plan Bradycardia (Primary) - EXTERNAL EKG 8 TO 15 DAYS; Future; Expected date: 05/05/2024 - CARDIOLOGY REFERRAL OP - RETURN TO WORK OR SCHOOL HTN, goal below 130/80 - CARDIOLOGY REFERRAL OP - RETURN TO WORK OR SCHOOL Wrap-Up Rev er note and labs Change hctz dose to 12.5 mg Compression socks The patient is asked to make an attempt to improve diet and exercise patterns to aid in medical management of this problem. Ziop atch Symptomatic bradycardia vs med dose Time: I spent a total of 30-39 minutes (exact time 32 mins) on the date of service in preparation, delivery, and documentation of the care provided to Moni Maria excluding any time spent in the performance of separately billed services. Akanksha Parrish PA-C 05/04/2024 9:32 AM documented in this encounter Nursing Notes * Kristine Segura LPN - 05/04/2024 8:50 AM EDT Moni Maria is a 48 year old female who presents today for Chief Complaint Patient presents with Hospital Follow-Up Patient states that she is here for ER follow up. documented in this encounter Plan of Treatment Upcoming Encounters Date Type Department Care Team (Late st Contact Info) Description 06/29/2024 3:00 PM EDT Office Visit Neurology [facility] [place] [address] [place] [address] Keren Fuller MD [address] [facility] [place], [place] [address] 08/03/2024 8:00 AM EST Office Visit Rheumatology [facility] [address] [facility] [place], [place] [address] Jim Kearney CRNP [address] [facility] [place], [place] [address] 08/17/2024 10:30 AM EST Imaging Radiology [facility] 1st [facility] [address] [place] [address] 08/17/2024 11:00 AM EST Imaging Radiology [facility] [address] [place] [address] 12/28/2024 8:30 AM EDT Office Visit Gynecology/Obstetrics [facility] [address] [place] [address] Diana Harkins CRNP [address] [facility] [address] Scheduled Orders Name Type Priority Associated Diagnoses Orde r Schedule EXTERNAL EKG 8 TO 15 DAYS Holter Routine Bradycardia Expected: 05/05/2024 (Approximate), Expires: 05/04/2025 Scheduled Procedures Name Priority Associated Diagnoses Date/Ti me COLONOSCOPY FLEXIBLE PROXIMAL DIAGNOSTIC Recall Screen for colon cancer Scheduled Referrals Name Type Priority Associated Diagnoses Orde r Schedule CARDIOLOGY REFERRAL OP Referral Within 30 days (routine) Bradycardia HTN, goal below 130/80 Ordered: 05/04/2024 Health Maintenance Due Date Last Done Comments [...] this encounter Medical Devices Implanted Type Area Active Directory Engineer Device Identifier Shelf Expiration Date Model / Serial / Lot Graft Healos 10 2761-60-010 - [id number] Implanted:Qty: 1 on 08/30/2008 [place] [facility] [place]: Spine Lumbar [employer] F[employer] DEPUY 10/17/2009 [id number] / / [id number] Graft Healos 5cc 2761-60-005 - [id number] Implanted:Qty: 1 on 08/30/2008 [place] [facility] [place]A: Spine Lumbar [employer] DEPUY 10/17/2009 [id number] / / [id number] Tavo 5.5x80 Prebnt Ti [id number] - [id number] Implanted:Qty: 1 on 08/30/2008 [place] [facility] Bilateral: Spine Lumbar Medtronic Sofamor [place] [id number] / / Expedium Ti Sfx 5.5 Lat A6 - [id number] Implanted:Qty: 1 on 08/30/2008 at [place] [facility] Spine Lumbar [employer] FERNA[employer] DEPUY [id number] / / Cage Implanted:Qty: 1 on 08/30/2008 at [place] [facility] N/A: Spine Lumbar F[employer] FERNA[employer] DEPUY [id number] / / 70 Cm Contract Trial Lead Shyp Implanted:Qty: 1 on 11/24/2009 at OR [facility] N/A: Back [place] 07[place]17/[place] [facility] [id number] / / [id number] documented as of this encounter Visit Diagnoses Diagnosis Bradycardia- Primary Other specified cardiac dysrhythmias HTN, goal below 130/80 Unspecified essential hypertension documented in this encounter Advance Directives * [...] 9:09 AM 08/30/2008 5:07 PM Care Teams Polymer Scientist Relationship Specialty Start Date End Date Akanksha Parrish PA-C [address] [place] [address] PCP - General Physician Core Drill Operator Helper 04/23/23 documented as of this encounter
--- OUTSIDE RECORDS SUMMARY | 2024-06-28 01:44 | External Medical Summary ---
Author Name Unknown Address Unknown Organization K1F:[facility] [address] [place] [address] Laboratory Report Ordering Provider Test Date Status BRETTKAREEM CESPEDES 04/30/2024 15:37:00 Final Observation Date Value Abnormality Reference (Units ) Status BUN 04/30/2024 15:37:00 9 6-20 (mg/dL) Final Creatinine 04/30/2024 15:37:00 0.8 0.5-1.0 (mg/dL) Final Glomerular filtration rate/1.73 sq M.predicted [Volume Rate/Area] in Serum, Plasma or Blood by Creatinine-based formula (CKD-EPI) 04/30/2024 15:37:00 86 >=60 (mL/min) Final eGFR is calculated based on the CKD-EPI 2020 equation. Sodium 04/30/2024 15:37:00 138 135-146 (m mol/L) Final Potassium 04/30/2024 15:37:00 3.6 3.5-5.1 (m mol/L) Final Cl 04/30/2024 15:37:00 105 98-107 (mm ol/L) Final CO2 04/30/2024 15:37:00 22 22-32 (mmo l/L) Final Anion gap 04/30/2024 15:37:00 11 7-15 (mmol /L) Final Glucose 04/30/2024 15:37:00 88 70-120 (mg /dL) Final Albumin 04/30/2024 15:37:00 4.2 3.8-5.0 (g /dL) Final AST (Aspartate aminotransferase) 04/30/2024 15:37:00 19 10-35 (U/L) Final Alk Phos 04/30/2024 15:37:00 74 35-130 (U/ L) Final Bilirubin, Total 04/30/2024 15:37:00 0.7 <=1 .2 (mg/dL) Final Calcium 04/30/2024 15:37:00 9.1 8.4-10.2 ( mg/dL) Final Protein 04/30/2024 15:37:00 6.7 6.0-8.3 (g /dL) Final ALT (Alanine aminotransferase) 04/30/2024 15:37:00 17 10-35 (U/L) Final Performing Location LABORATORY [facility] - [facility] [place] [address]
--- OUTSIDE RECORDS SUMMARY | 2024-06-28 01:44 | External Medical Summary | Summary of Care ---
Author Name Unknown Organization [facility] Address [address] [place] [address] Phone [phone] Care Team Providers Care Counter Control Operator Name Role Phone Akanksha Parrish PA-C Primary Care Provider [phone] Reason for Referral * Precert (Diagnostic Medical) (Within 10 days (routine)) - Authorized Specialty Diagnoses / Procedures Referred By Contac t Referred To Contact Cardiac Studies Diagnoses Dizziness Bradycardia Procedures ECHO, COMPLETE (2D), TRANS-THORACIC Vaishnav, Aiyana, DO [address] [facility] [place] [address] Referral ID Status Reason Start Date Expiration Date V isits Requested Visits Authorized [id number] Authorized Precert 05/07/2024 999 999 Reason for Visit * Precert (Diagnostic Medical) (Within 10 days (routine)) - Authorized Specialty Diagnoses / Procedures Referred By Contac t Referred To Contact Cardiac Studies Diagnoses Dizziness Bradycardia Procedures ECHO, COMPLETE (2D), TRANS-THORACIC Vaishnav, Aiyana, DO [address] [facility] [place] [place] [address] Referral ID Status Reason Start Date Expiration Date V isits Requested Visits Authorized [id number] Authorized Precert 05/07/[phone] Encounter Details Date Type Department Care Team (Latest Contact Info) Description 05/21/2024 7:48 AM EDT - 05/21/2024 11:59 PM EDT Hospital Encounter Cardiac Studies, [address] [place] [id number] Discharge Disposition: Home - Self Care Allergies Active Allergy Reactions Criticality Noted Date Comments Tramadol Abdominal pain High 02/19/2018 [place]MON[place] Valacyclovir 06/13/2021 rash documented as of this encounter (statuses as of 05/22/2024) Medications Medication Sig Dispensed Refills Start Date [...] Aerosol SolutionIndications: Acute bronchitis, antibiotics not indicated Inhale 2 Puffs [...] the evening. Take with meals. Active Evening Washta Oil 500 MG Oral Capsule Take by mouth. A ctive documented as of this encounter (statuses as of 05/22/2024) Active Problems Problem Noted Date Diagnosed Date [...] as of this encounter (statuses as of 05/22/2024) Resolved Problems Problem Noted Date Diagnosed Date [...] as of this encounter (statuses as of 05/22/2024) Immunizations Name Administration Dates Next Due COVID-19 mRNA, LNP-s, No Pre serve, 2-Dose Series ([employer]) 06/22/2021,06/01/2021 DTaP Dipth/Tet/Acell Pertussis (Infanrix), Peds 02/25/1981,02/28/1978,05/03/1977,03/01,01/04/1977 [...] on file documented as of this encounter Plan of Treatment Upcoming Encounters Date Type Department Care Team (Late st Contact Info) Description 06/10/2024 11:30 AM EDT Office Visit Cardiology [facility], [address] [phone] Aiyana Mondragon DO [address] [facility] [place] [address] 06/29/2024 3:00 PM EDT Office Visit Neurology [facility] [address] [place] [address] Keren Fuller MD [address] [place] [address] 08/03/2024 8:00 AM EST Office Visit Rheumatology [place] [phone] [facility] [place] [address] Jim Kearney CRNP [address] [facility] [place] [address] 08/17/2024 10:30 AM EST Imaging Radiology [facility] 1st [facility] [address] [facility] [place] [address] 08/17/2024 11:00 AM EST Imaging Rad[facility] [address] 12/28/2024 8:30 AM EDT Office Visit Gynecology/Obstetrics [facility] [address] [facility] [place] [address] Diana Harkins CRNP [address] [facility] [place] [address] Scheduled Procedures Name Priority Associated Diagnoses Date/Ti [...] this encounter Medical Devices Implanted Type Area Coping Machine Operator Device Identifier Shelf Expiration Date Model / Serial / Lot Graft Healos 10 2761-60-010 - [id number] Implanted:Qty: 1 on 08/30/2008 [place] [facility] [place]: Spine Lumbar [employer] FER[employer] DEPUY 10/17/2009 [id number] / / [id number] Graft Healos [facility] 2761-60-005 - [id number] Implanted:Qty: 1 on 08/30/2008 [place] [facility] [place]/A: Spine Lumbar F[employer] FERNA[employer] DEPUY 10/17/2009 [id number] / / [id number] Tavo 5.5x80 Prebnt Ti [id number] - [id number] Implanted:Qty: 1 on 08/30/2008 [place] [facility] [place] Bilateral: Spine Lumbar Medtronic Sofamor [place] [id number] / / Expedium Ti Sfx 5.5 Lat A6 - [id number] Implanted:Qty: 1 on 08/30/2008 [place] [facility] [place] Spine Lumbar F[employer]O [employer] FERNA[employer] DEPUY [id number] / / Cage Implanted:Qty: 1 on 08/30/2008 at [place] [facility] [place] N/A: Spine Lumbar FERNANDO [employer] FERNANDO DEPUY [id number] / / 70 Cm Contract Trial Lead [employer] Implanted:Qty: 1 on 11/24/2009 at OR [facility] N/A: Back [place] 07/17/[address] [facility] [id number] / / [id number] documented as of this encounter Procedures Procedure Name Priority Date/Time Associated Diagnosis Comments ECHO, COMPLETE (2D), TRANS-THORACIC Routine 05/21/2024 8:29 AM EDT Dizziness Bradycardia documented in this encounter Results * ECHO, COMPLETE (2D), TRANS-THORACIC (05/21/2024 8:29 AM EDT) LEFT VENTRICULAR EJECTION FRACTION 66 % [facility] 05/21/2024 8:05 AM EDT [place] Teresaestuardoterrie CONTRERAS ECHOCARDIOLOGY [facility] documented in this encounter Visit Diagnoses Diagnosis Dizziness Dizziness and giddiness Bradycardia Other specified cardiac dysrhythmias documented in this encounter Advance Directives * [...] 9:09 AM 08/30/2008 5:07 PM Care Teams Counter Control Operator Relationship Specialty Start Date End Date Akanksha Parrish PA-C [address] [place] [address] PCP - General Physician Vice Squad Police Officer 04/23/23 documented as of this encounter
--- OUTSIDE RECORDS SUMMARY | 2024-06-28 01:44 | External Medical Summary | Summary of Care ---
Author Name Unknown Organization [facility] Address [address] [place] [address] Phone [phone] Care Team Providers Care Song And Dance Performer Name Role Phone Akanksha Parrish PA-C Primary Care Provider [phone] Encounter Details Date Type Department Care Team (Late st Contact Info) Description 05/04/2024 Telephone [facility] [address] [place] [address] Akanksha Parrish PA-C [address] [place] [address] Allergies Active Allergy Reactions Criticality Noted Date [...] 04/02/2024 Active Linzess 145 MCG Oral Capsule (linaCLOtide)Indicati ons:Drug-induced constipation TAKE 1 CAPSULE BY MOUTH ONCE DAILY BEFORE BREAKFAST 90 Capsule 1 05/01/2024 Active Meloxicam 15 MG Oral Tablet (Mobic)Indications:Ne w daily persistent headache,Lumbar radiculopathy TAKE ONE TABLET BY MOUTH IN THE MORNING FOR PAIN 90 Tablet 1 05/01/2024 Active hydroCHLOROthiazide 25 MG Oral Tablet (Hydrodiuril) Take 0.5 Tablets by mouth in the morning. 05/04/2024 Active documented as of this encounter (statuses [...] mRNA, LNP-s, No Pre serve, 2-Dose Series ([employer]) 06/22/2021,06/01/2021 DTaP Dipth/Tet/Acell Pertussis (Infanrix), Peds 02/25/1981,02/28/1978,05/03/1977,03/01,01/04/1977 [...] encounter Miscellaneous Notes * Telephone Encounter - Kristine Segura LPN - 05/04/2024 11:09 AM EDT 05/04/24 11:09 AM Date to Remove: 05/17/2024 Serial Number: [id number] Ordering Provider: AKANKSHA Segura LPN Zio patch applied in clinic, as per provider orders. documented in this encounter Plan of Treatment Upcoming Encounters Date Type Department Care Team (Late st Contact Info) Description 06/29/2024 3:00 PM EDT Office Visit Neurology [facility] [address] [facility] [place] [address] Keren Fuller MD [address] [facility] [place] [address] 08/03/2024 8:00 AM EST Office Visit Rheumatology [facility] [address] [facility] [place] [address] Jim Kearney CRNP [address] [employer] [place] [address] 08/17/2024 10:30 AM EST Imaging Radiology [facility] [address] [facility] [address] [facility] [place] [address] 08/17/2024 11:00 AM EST Imaging Radiology [facility] [address] [place] [address] 12/28/2024 8:30 AM EDT Office Visit Gynecology/Obstetrics [facility] [address] [place] [address] Diana Harkins CRNP [address] [place] [address] Scheduled Procedures Name Priority Associated Diagnoses Date/Ti [...] this encounter Medical Devices Implanted Type Area Information Systems Auditor Device Identifier Shelf Expiration Date Model / Serial / Lot Graft Healos 10 2761-60-010 - [id number] Implanted:Qty[place] 1 [place] [facility] [place] Spine Lumbar F[employer]O [employer] FERNA[employer]O DEPUY 10/17/2009 [id number] / / [id number] Graft Healos [facility] 2761-60-005 - [id number] Implanted:Qty: 1 [place] 08/30/2008 [place] [facility] [place]: Spine Lumbar FERNANDO [employer] FERNA[employer]O DEPUY 10/17/2009 [id number] / / [id number] Tavo 5.5x80 Prebnt Ti [id number] - [id number] Implanted:Qty: 1 on 08/30/2008 [place] [facility] [place] Bilateral: Spine Lumbar Medtronic Sofamor [place] [id number] / / Expedium Ti Sfx 5.5 Lat A6 - [id number] Implanted:Qty: 1 [place] 08[place]30/2008 [place] [facility] [place] Spine Lumbar FERNA[employer]O [employer] FERNA[employer] DEPUY [id number] / / Cage Implanted:Qty: 1 on 08/30/2008 [place] [facility] [place]: Spine Lumbar FERNANDO & FERNANDO DEPUY [id number] / / 70 Cm Contract Trial Lead [employer] Implanted:Qty: 1 on 11/24/2009 at [place] [facility] N/A: Back [facility] 07/17/2011 [facility] [id number] / / [id number] documented as of this encounter Advance Directives [...] 9:09 AM 08/30/2008 5:07 PM Care Teams Song And Dance Performer Relationship Specialty Start Date End Date Akanksha Parrish PA-C [address] [facility] [place] [address] PCP - General Physician Technology Specialist 04/23/23 documented as of this encounter
--- OUTSIDE RECORDS SUMMARY | 2024-06-28 01:44 | External Medical Summary | Summary of Care ---
Author Name Unknown Organization [facility] Address [address] [place] [address] Phone [phone] Care Team Providers Care Door Manager Name Role Phone Akanksha Parrish PA-C Primary Care Provider [phone] Reason for Visit * Reason Comments eRx-Medication Refill Encounter Details Date Type Department Care Team (Late st Contact Info) Description 04/30/2024 Refill [facility] [address] [place] [address] Akanksha Parrish PA-C [address] [place] [address] Drug-induced constipation; New daily persistent headache; Lumbar radiculopathy Allergies Active Allergy Reactions Criticality Noted Date [...] albuterol sulfate (PROVENTIL) (2.5 MG/3ML) 0.083% nebulizer solutionIndication s:Acute bronchitis, antibiotics not indicated Inhale 1 Vial [...] Active Ondansetron HCl 8 MG Oral Tablet (Zofran)Indication s:Nausea Take by mouth 1 Tablet every 8 [...] HFA 108 (90 Base) MCG/ACT Inhalation Aerosol SolutionIndication s:Acute bronchitis, antibiotics not indicated Inhale 2 Puffs by mouth in the morning and 2 Puffs at noon and 2 Puffs in the evening and 2 Puffs before bedtime. 18 g 1 11/04/2023 Active Topiramate 100 MG Oral Tablet (topAMAX) TAKE 1 TABLET BY MOUTH TWICE A DAY 180 Tablet 1 02/03/2024 Active hydroCHLOROthiazid e 25 MG Oral Tablet (Hydrodiuril) TAKE 1 TABLET BY MOUTH ONCE DAILY 90 Tablet 1 02/28/2024 Active Nitrofurantoin Macrocrystal 100 MG Oral Capsule (Macrodantin) Take one capsule as needed 30 Capsule 3 03/30/2024 Active Gabapentin 800 MG Oral Tablet (Neurontin) TAKE 1 TABLET BY MOUTH THREE TIMES DAILY 270 Tablet 04/02/2024 Active Linzess 145 MCG Oral Capsule (linaCLOtide)Indic ations:Drug-induce d constipation TAKE 1 CAPSULE BY MOUTH ONCE DAILY BEFORE BREAKFAST 90 Capsule 1 05/01/2024 Active Meloxicam 15 MG Oral Tablet (Mobic)Indications :New daily persistent headache,Lumbar radiculopathy TAKE ONE TABLET BY MOUTH IN THE MORNING FOR PAIN 90 Tablet 1 05/01/2024 Active Linzess 145 MCG Oral Capsule (linaCLOtide)Indic ations:Drug-induce d constipation TAKE 1 CAPSULE BY MOUTH ONCE DAILY before breakfast 90 Capsule 3 05/07/2023 4 Discontinued Meloxicam 15 MG Oral Tablet (Mobic)Indications :New daily persistent headache,Lumbar radiculopathy TAKE 1 TABLET BY MOUTH EVERY MORNING for pain 90 Tablet 1 11/05/2023 4 Discontinued documented as of this encounter (statuses as [...] encounter Miscellaneous Notes * Telephone Encounter - Akanksha Parrish PA-C - 05/01/2024 4:32 PM EDTSigned Prescriptions: Disp Refills Linzess 145 MCG Oral Capsule (linaCLOtide) 90 Cap*1 Sig: TAKE 1 CAPSULE BY MOUTH ONCE DAILY BEFORE BREAKFAST Authorizing Provider: AKANKSHA PARRISH Meloxicam 15 MG Oral Tablet (Mobic) 90 Tab*1 Sig: TAKE ONE TABLET BY MOUTH IN THE MORNING FOR PAIN Authorizing Provider: AKANKSHA PARRISH Ordering User: GRAHAM SANDERS * Telephone Encounter - Graham Sanders [facility] - 05/01/2024 10:01 AM EDTPending Prescriptions: Disp Refills Linzess 145 MCG Oral Capsule (linaCLOtide) 90 Cap*1 Sig: TAKE 1 CAPSULE BY MOUTH ONCE DAILY BEFORE BREAKFAST Signed Prescriptions: Disp Refills Meloxicam 15 MG Oral Tablet (Mobic) 90 Tab*1 Sig: TAKE ONE TABLET BY MOUTH IN THE MORNING FOR PAIN Authorizing Provider: AKANKSHA PARRISH User: Roberta SANDERS * Telephone Encounter - Graham Sanders RPh - 05/01/2024 10:01 AM EDT [facility] is currently not authorized to approve refills for the pended medication(s) per refill protocol. Please approve if appropriate. Thanks, Graham Sanders, PharmD Clinical Pharmacist Centralized Clinical Pharmacy Services ([facility]) [phone] 05/01/2024, 10:01 AM * Telephone Encounter - Graham Sanders RPh - 05/01/2024 10:00 AM EDT Pending Prescriptions: Disp Refills Linzess 145 MCG Oral Capsule (linaCLOtide*90 Cap*0 Sig: TAKE 1 CAPSULE BY MOUTH ONCE DAILY BEFORE BREAKFAST Meloxicam 15 MG Oral Tablet (Mobic) [Phar*90 Tab*0 Sig: TAKE ONE TABLET BY MOUTH IN THE MORNING FOR PAIN Last Visit: 03/30/2024 (in office), 04/23/2022 (telemedicine) Next Visit: 05/04/2024 If no future appointments scheduled, and last appointment is greater than a year ago, please schedule patient for a follow-up appointment Last date the medication was ordered: 05/07/23 Pharmacy: [id number] [id number] [address] Is this request for a controlled substance? No Urine Drug Screen: Results for orders placed or performed in visit on 02/26/14 TOX SCREEN, URINE, W/ CONFIRMATION Result Value Amphetamine NEGATIVE Barbiturates NEGATIVE Benzodiazepines NEGATIVE Cannabinoids NEGATIVE Cocaine Metabolite NEGATIVE Morphine / Codeine POSITIVE (A) METHADONE METABOLITE NEGATIVE OXYCODONE NEGATIVE TOX COMMENT THE ABOVE SCREENING RESULTS ARE PRESUMPTIVE AND CAN ONLY BE USED FOR MEDICAL PURPOSES. POSITIVE RESULTS REFLEX TO CONFIRMATORY TESTING. Cutoff Concentration *Note: Due to a large number of results and/or encounters for the requested time period, some results have not been displayed. A complete set of results can be found in Results Review. Patient Phone Numbers Labs: Lab Results Component Value Date/Time CREAT 0.8 04/30/2024 03:37 PM CREAT 0.71 01/18/2021 12:00 AM CREAT 0.7 09/22/2018 04:32 PM POTASSIUM 3.6 04/30/2024 03:37 PM POTASSIUM 3.2 01/18/2021 12:00 AM POTASSIUM 3.6 05/03/2020 03:16 PM TSH 0.72 03/30/2024 09:16 AM TSH 0.63 11/01/2014 12:58 PM LDLCALC 104 03/30/2024 09:16 AM LDLCALC 117 01/18/2021 12:00 AM LDLCALC 142 (H) 02/12/2018 07:54 AM LDLDIRECT NOT APPLICABLE 09/29/2012 12:16 PM ALT 17 04/30/2024 03:37 PM ALT 21 09/30/2016 12:00 AM ALT 23 06/03/2014 03:20 PM HGBA1C 4.7 03/30/2024 09:16 AM HGBA1C 4.7 11/01/2014 12:58 PM documented in this encounter Plan of Treatment Upcoming Encounters Date Type Department Care Team (Late st Contact Info) Description 05/04/2024 9:00 AM EDT Office Visit [facility] [address] [facility] [id number] Akanksha Parrish PA-C [address] [facility] [place] [id number] 06/29/2024 3:00 PM EDT Office Visit Neurology [facility] [address] [place] [address] Keren Fuller MD [address] [place] [address] 08/03/2024 8:00 AM EST Office Visit Rheumatology [facility] [address] [facility] [place] [address] Jim Kearney CRNP [address] [facility] [place] [address] 08/17/2024 10:30 AM EST Imaging [facility] [address] [facility] [address] 08/17/2024 11:00 AM EST Imaging Radiology [facility] [address] [facility] [place] [address] 12/28/2024 8:30 AM EDT Office Visit Gynecology/Obstetrics [facility] [address] [facility] [place] [address] Diana Harkins CRNP [address] [facility] [place] [address] Scheduled Procedures Name Priority Associated Diagnoses Date/Ti [...] this encounter Medical Devices Implanted Type Area Bottom Finisher Device Identifier Shelf Expiration Date Model / Serial / Lot Graft Healos 10 2761-60-010 - [id number] Implanted:Qty: 1 on 08/30/2008 at OR [facility] N/A: Spine Lumbar [employer] 10/17/2009 [id number] / / [id number] Graft Healos [facility] 2761-60-005 - [id number] Implanted:Qty: 1 on 08/30/2008 at OR [facility] N/A: Spine Lumbar [employer] 10/17/2009 [id number] / / [id number] Tavo 5.5x80 Prebnt Ti [id number] - [id number] Implanted:Qty: 1 on 08/30/2008 at OR [facility] Bilateral: Spine Lumbar Medtronic Sofamor [place] [id number] / / Expedium Ti Sfx 5.5 Lat A6 - [id number] Implanted:Qty: 1 on 08/30/2008 at [facility] Spine Lumbar [employer] [id number] / / Cage Implanted:Qty: 1 on 08/30/2008 at OR [facility] N/A: Spine Lumbar [employer] [id number] / / 70 Cm Contract Trial Lead Buck Implanted:Qty: 1 on 11/24/2009 at OR [facility] N/A: Back CHANTAL CORNEJO 07/17/2011 [id number] / / [id number] documented as of this encounter Visit Diagnoses Diagnosis Drug-induced constipation Other constipation New daily persistent headache Lumbar radiculopathy Thoracic or lumbosacral neuritis or radiculitis, unspecified documented in this encounter Additional Health Concerns [...] 9:09 AM 08/30/2008 5:07 PM Care Teams Door Manager Relationship Specialty Start Date End Date Akanksha Parrish PA-C [address] [facility] [place] [address] PCP - General Physician Welfare Eligibility Interviewer 04/23/23 documented as of this encounter
--- OUTSIDE RECORDS SUMMARY | 2024-06-28 01:44 | External Medical Summary | Summary of Care ---
Author Name Unknown Organization [facility] Address [address] [place] [address] Phone [phone] Care Team Providers Care Internal Grinder Name Role Phone Akanksha Parrish PA-C Primary Care Provider [phone] Reason for Visit * Reason Comments eRx-Medication Refill Encounter Details Date Type Department Care Team (Late st Contact Info) Description 05/31/2024 Refill [facility] [address] [place] [address] Akanksha Parrish PA-C [address] [place] [address] Acute bronchitis, antibiotics not indicated Allergies Active Allergy Reactions Criticality Noted Date Comments Tramadol Abdominal pain High 02/19/2018 CLEMONS Valacyclovir 06/13/2021 rash documented as of this encounter (statuses as of 06/01/2024) Medications Medication Sig Dispensed Refills Start Date End Date Status lamoTRIgine 200 MG Oral Tablet Take 1 Tablet by mouth every evening. Total of 300 mg daily 30 Tab 5 9 Active albuterol sulfate (PROVENTIL) (2.5 MG/3ML) 0.083% nebulizer solutionIndication s:Acute bronchitis, antibiotics not indicated Inhale 1 Vial via nebulizer every 4 hours as needed for Wheezing. 120 Vial 5 9 Active Levonorgestrel 20 MCG/24HR Intrauterine Intrauterine Device (Mirena) Insert 1 Each into uterus once. Active Cetirizine HCl 10 MG Oral Tablet Take 1 Tablet by mouth in the morning and 1 Tablet before bedtime. 60 Tab 1 Active Ziprasidone HCl 60 MG Oral Capsule (Geodon) 1 daily 1 Active Ondansetron HCl 8 MG Oral Tablet (Zofran)Indication s:Nausea Take by mouth 1 Tablet every 8 hours as needed for Nausea. 20 Tablet 2 Active Rizatriptan Benzoate 10 MG Oral Tablet (Maxalt) at onset of headache, may repeat in two hours Up to two pills in 24 hours. 10 Tablet 3 Active lamoTRIgine 150 MG Oral Tablet (LaMICtal) 3 Active Hydroxychloroquine Sulfate 200 MG Oral Tablet (Plaquenil) Take 2 Tablets by mouth at bedtime. 180 Tablet 3 4 Active buPROPion HCl ER (XL) 150 MG Oral Tablet Extended Release 24 Hour (Wellbutrin XL) Take 1 Tablet by mouth in the morning. 4 Active Topiramate 100 MG Oral Tablet (topAMAX) TAKE 1 TABLET BY MOUTH TWICE A DAY 180 Tablet 1 4 Active Nitrofurantoin Macrocrystal 100 MG Oral Capsule (Macrodantin) Take one capsule as needed 30 Capsule 3 4 Active Gabapentin 800 MG Oral Tablet (Neurontin) TAKE 1 TABLET BY MOUTH THREE TIMES DAILY 270 Tablet 4 Active Linzess 145 MCG Oral Capsule (linaCLOtide)Indic ations:Drug-induce d constipation TAKE 1 CAPSULE BY MOUTH ONCE DAILY BEFORE BREAKFAST 90 Capsule 1 4 Active Meloxicam 15 MG Oral Tablet (Mobic)Indications :New daily persistent headache,Lumbar radiculopathy TAKE ONE TABLET BY MOUTH IN THE MORNING FOR PAIN 90 Tablet 1 4 Active Additional Information Patient taking differently: PRN, Reported on 05/06/2024 hydroCHLOROthiazid e 25 MG Oral Tablet (Hydrodiuril) Take 0.5 Tablets by mouth in the morning. 4 Active Probiotic & Acidophilus Ex St Oral Capsule Take 1 Capsule by mouth in the morning and 1 Capsule at noon and 1 Capsule in the evening. Take with meals. Active Evening Hydro Oil 500 MG Oral Capsule Take by mouth. Active Albuterol Sulfate HFA 108 (90 Base) MCG/ACT Inhalation Aerosol SolutionIndication s:Acute bronchitis, antibiotics not indicated inhale 2 puffs by mouth four times daily every morning, at noon, every evening, and before bedtime 18 g 1 4 Active Albuterol Sulfate HFA 108 (90 Base) MCG/ACT Inhalation Aerosol SolutionIndication s:Acute bronchitis, antibiotics not indicated Inhale 2 Puffs by mouth in the morning and 2 Puffs at noon and 2 Puffs in the evening and 2 Puffs before bedtime. 18 g 1 4 06/01/20 24 Discontinued documented as of this encounter (statuses as of 06/01/2024) Active Problems Problem Noted Date Diagnosed Date [...] as of this encounter (statuses as of 06/01/2024) Resolved Problems Problem Noted Date Diagnosed Date [...] as of this encounter (statuses as of 06/01/2024) Immunizations Name Administration Dates Next Due COVID-19 [...] encounter Miscellaneous Notes * Telephone Encounter - Kavon Rojas RPh - 06/01/2024 11:37 AM EDT Signed Prescriptions: Disp Refills Albuterol Sulfate HFA 108 (90 Base) MCG/AC*18 g 1 Sig: inhale 2puffs by mouth four times daily every morning, at noon, every evening, and before bedtimeAuthorizing Provider: AKANKSHA PARRISH AOrdering User: KAVON ROJAS documented in this encounter Plan of Treatment Upcoming Encounters Date Type Department Care Team (Late st Contact Info) Description 06/10/2024 11:30 AM EDT Office Visit Cardiology [facility] [place] [address] [facility] [place] [address] Aiyana Mondragon, DO [address] [facility] [place] [address] 06/29/2024 3:00 PM EDT Office Visit Neurology [facility] [address] [facility] [place] [address] Keren Fuller MD [address] [place] [address] 08/03/2024 8:00 AM EST Office Visit Rheumatology [place] [id number] [employer] [place] [address] Jim Kearney CRNP [facility] [facility] [place] [address] 08/17/2024 10:30 AM EST Imaging Radiology [facility] [address] [facility] [address] [facility] [place] [address] 08/17/2024 11:00 AM EST Imaging Radiology [facility] [address] [facility] [place] [address] 12/28/2024 8:30 AM EDT Office Visit Gynecology/Obstetrics [facility] [address] [facility] [place] [address] Diana Harkins CRNP [address] [facility] [place] [address] Scheduled Procedures Name Priority Associated Diagnoses Date/Ti [...] this encounter Medical Devices Implanted Type Area Enroute Controller Device Identifier Shelf Expiration Date Model / Serial / Lot Graft Healos [facility] 2761-60-010 - [id number] Implanted:Qty: 1 on 08/30/2008 at [place] [facility] N/A: Spine Lumbar [employer] 10/17/2009 [id number] / / [id number] Graft Healos [facility] 2761-60-005 - [id number] Implanted:Qty: 1 on 08/30/2008 at OR [facility] N/A: Spine Lumbar [employer] 10/17/2009 [id number] / / [id number] Tavo 5.5x80 Prebnt Ti [id number] - [id number] Implanted:Qty: 1 on 08/30/2008 at OR [facility] Bilateral: Spine Lumbar Medtronic Sofamor [place] [id number] / / Expedium Ti Sfx 5.5 Lat A6 - [id number] Implanted:Qty: 1 on 08/30/2008 at [place] [facility] Spine Lumbar [employer] [id number] / / Cage Implanted:Qty: 1 on 08/30/2008 at OR [facility] N/A: Spine Lumbar [employer] [id number] / / 70 Cm Contract Trial Lead MedAvail Implanted:Qty: 1 on 11/24/2009 at OR [facility] N/A: Back [facility] 07/17/2011 [id number] / / [id number] documented as of this encounter Visit Diagnoses Diagnosis Acute bronchitis, antibiotics not indicated Acute bronchitis documented in this encounter Advance Directives * [...] 9:09 AM 08/30/2008 5:07 PM Care Teams Internal Grinder Relationship Specialty Start Date End Date Akanksha Parrish PA-C [facility] [address] [facility] [place] [address] PCP - General Physician [employer] Planner 04/23/23 documented as of this encounter
--- OUTSIDE RECORDS SUMMARY | 2024-06-28 01:44 | External Medical Summary | Summary of Care ---
Author Name Unknown Organization [facility] Address [address] [place] [address] Phone [phone] Care Team Providers Care Preflight Inspector Name Role Phone Akaknsha Parrish PA-C Primary Care Provider [phone] Reason for Referral * Precert (Diagnostic Medical) (Within 10 days (routine)) - Authorized Specialty Diagnoses / Procedures Referred By Contac t Referred To Contact Cardiac Studies Diagnoses Dizziness Bradycardia Procedures ECHO, COMPLETE (2D), TRANS-THORACIC Aiyana Mondragon DO [address] [place] [address] Referral ID Status Reason Start Date Expiration Date V isits Requested Visits Authorized [id number] Authorized Precert 05/07/2024 999 [id number] Reason for Visit * Reason Comments NEW PATIENT * Evaluate & Treat - Unlimited Visits (Within 30 days (routine)) - Authorized Specialty Diagnoses / Procedures Referred By Contact Referred To Contact Cardiovascular Medicine / Cardiology Diagnoses Bradycardia HTN, goal below 130/80 Akanksha Parrish PA-C [address] [place] [address] Referral ID Status Reason Start Date Expiration Date Visits Requested Visits Authorized [id number] Authorized Specialty Services Required 05/04/2024 [id number] Encounter Details Date Type Department Care Team (Late st Contact Info) Description 05/06/2024 10:15 AM EDT Office Visit Cardiology [facility] [address], [place] [id number] Aiyana Mondragon DO [address] [place] [address] Dizziness*; Bradycardia; Subacute cutaneous lupus erythematosus Allergies Active Allergy Reactions Criticality Noted Date Comments Tramadol Abdominal pain High 02/19/2018 [place] Valacyclovir 06/13/2021 rash documented as of this encounter (statuses as of 05/07/2024) Medications Medication Sig Dispensed Refills Start Date [...] the evening. Take with meals. Active Evening Garfield Oil 500 MG Oral Capsule Take by mouth. A ctive documented as of this encounter (statuses as of 05/07/2024) Active Problems Problem Noted Date Diagnosed Date [...] as of this encounter (statuses as of 05/07/2024) Resolved Problems Problem Noted Date Diagnosed Date [...] as of this encounter (statuses as of 05/07/2024) Immunizations Name Administration Dates Next Due COVID-19 [...] Sign Reading Time Taken Comments Blood Pressure 120/86 05/06/2024 10:35 AM EDT Pulse 68 05/06/2024 10:35 AM EDT Temperature - - Respiratory Rate - - Oxygen Saturation 98% 05/06/2024 10:35 AM EDT Inhaled Oxygen Concentration - - Weight 83.6 kg (184 lb 3.2 oz) 05/06/2024 10:35 AM EDT Height 175.3 cm (5' 9") 05/06/2024 10:35 AM EDT Body Mass Index 27.2 05/06/2024 10:35 AM EDT documented in this encounter Progress Notes * Aiyana Mondragon DO - 05/06/2024 9:58 AM EDT Cardiology Outpatient Consultation Lewis Maria is a 48 year old female with the following history: - Hypertension - Subcutaneous lupus erythematosus (diagnosed 2020), on Plaquenil - Lumbar spondylosis and DDD s/p L5-S1 diskectomy (03/2006), L5-S1 TLIF +L5-S1 Legacy with PSF (05/2006), L4-5 PLIF and revision L4-S1 Legacy with PSF (08/2008) - Recurrent UTIs - Migraines - Anxiety - Depression She is seen in consultation for bradycardia. Chart/notes reviewed. Went to [place] ER on 04/30/2024 for chest pain and lightheadedness. Noted to have positive orthostatics. Give IV fluids with improvement in symptoms. Seen at [facility] on 04/29/2024 for similar symptoms and reports HR in 40s intermittently. HPI: Last Saturday had left sided chest pain going down left arm. Got worse on Saturday then went to [facility] for evaluation. HR dropping down into the 40s during that visit. [place] very weak, still had chest pain. Workup otherwise normal and ultimately sent home. Next day, at home, while attempting to stand, almost passed out. Went to ER in [place]. [place] presyncopal throughout car ride to hospital. Could not control body. Tight chest pain. Things felt like they were getting dark. Thought she was going to . Was having episodes where would feel fine thencompletely feeling out of it. Has been feeling better and better each day since but still getting lightheaded with standing and feeling tired. Massive headache yesterday. BP 94/62 mmHg yesterday. This is low for her. No palpitations. Just felt everything was slow. A little shortness of breath but not as often. Chest pain now more intermittent and now always down left arm now, sometimes achiness and numbness and tingling in left arm. Tightness/squeezing sensation. Lightheadedness worse with walking and positions changes. Nausea a month ago felt to be related to GI bug. No recent URI or GI illness. No fevers or chills. Has been on Plaquenil for a couple of years without issue. Has not previously experienced symptoms like this. Currently has Ziopatch on. Stays very hydrated, has adequate salt intake. 6 months leading up to current symptoms has been feeling very fatigued. Shx: - Current vaper, smoked cigarettes up until 2 years ago. - Uses OTC supplements - evening primrose, probiotic - Drinks 1 cup of coffee daily. Fhx: - Father - CHF, at age 41 - had cancer at young age (19). Past Medical History: Diagnosis Date Abnormal Papanicolaou [...] performed by Patricio Funes MD at ENDOSCOPY [facility] CRYOCAUTERY OF CERVIX 03/16/2001 for persistent d/c DILATION AND CURETTAGE (D&C) AGE 16 D&C IMPLANT EPIDURAL NEUROELECTRODES 11/24/2009 PERCUTANEOUS IMPLANTATION NEUROSTIMULATOR EPIDURAL performed by HEATHER HUERTA at OR [facility] INFORMATION 09/16/2002 fx ankle IOF-CT HEAD /BRAIN W/O CONTRAST 07/13/1999 negative LAPAROSCOPY, DIAGNOSTIC AGE 16 Laparoscopy-Pelvis(diagnostic) LUMBAR HEMILAMINECTOMY 01/23/2013 LAMINOTOMY DECOMPRESSION NERVE ROOT POSTERIOR LUMBAR performed by Manuela Melendez MD at OR [facility] LUMBAR SPINE FUSION, POST INTERBODY 08/30/2008 ARTHRODESIS SPINE POSTERIOR INTERBODY WITH LAMINECTOMY LUMBAR performed by Manuela MELENDEZ at OR [facility] LUMBAR SPINE FUSION, POSTEROLATERAL 08/30/2008 ARTHRODESIS SPINE POSTERIOR LUMBAR performed by Manuela MELENDEZ at OR [facility] MAMMOGRAM BREAST NEEDLE BIOPSY CORE RIGHT Right 02/24/2024 PARTIAL REMOVAL/REVISION OF HYMEN AGE 16 imperforate hymen repair REMOVE SPINE FIXATION DEVICE, POST 01/23/2013 REMOVAL POSTERIOR SPINAL NONSEGMENTAL INSTRUMENTATION performed by Manuela Melendez MD at OR [facility] SPINAL FUSION, 6 OR LESS VERT, [...] date: 11/14/1998 Quit date: 11/14/2016 Years since quittin.4 Passive exposure: Past Smokeless tobacco: Former Quit [...] of 300 mg daily 30 Tab 5 Levonorgestrel 20 MCG/24HR Intrauterine Intrauterine Device (Mirena) Insert 1 Each into uterus once. Cetirizine HCl 10 MG Oral Tablet Take 1 Tablet by mouth in the morning and 1 Tablet before bedtime.60 Tab 0 Ziprasidone HCl 60 MG Oral Capsule (Geodon) 1 daily lamoTRIgine 150 MG Oral Tablet (LaMICtal) Hydroxychloroquine Sulfate 200 MG Oral Tablet (Plaquenil) Take 2 Tablets by mouth at bedtime. 180 Tablet 3 buPROPion HCl ER (XL) 150 MG Oral Tablet Extended Release 24 Hour (Wellbutrin XL) Take 1 Tablet by mouth in the morning. Albuterol Sulfate HFA 108 (90 Base) MCG/ACT Inhalation Aerosol Solution Inhale 2 Puffs by mouth in the morning and 2 Puffs at noon and 2 Puffs in the evening and 2 Puffs before bedtime. 18 g 1 Topiramate 100 MG Oral Tablet (topAMAX) TAKE 1 TABLET BY MOUTH TWICE A DAY 180 Tablet 1 Gabapentin 800 MG Oral Tablet (Neurontin) TAKE [...] in the evening. Take with meals. Evening Garfield Oil 500 MG Oral Capsule Take by mouth. albuterol sulfate (PROVENTIL) (2.5 MG/3ML) 0.083% nebulizer solution Inhale 1 Vial via nebulizer every 4 hours as needed for Wheezing. 120 Vial 5 Ondansetron HCl 8 MG Oral Tablet (Zofran) Take by mouth 1 Tablet every 8 hours as needed for Nausea. 20 Tablet 0 Rizatriptan Benzoate 10 MG Oral Tablet (Maxalt) at onset of headache, may repeat in two hours Up totwo pills in 24 hours. 10 Tablet 0 Nitrofurantoin Macrocrystal 100 MG Oral Capsule (Macrodantin) Take one capsule as needed 30 Capsule3 No current facility-administered medications for this visit. [...] (-) rash or wounds. PHYSICAL EXAMINATION BP 120/86 (BP Site: Left Arm, BP Position: Sitting, BP Cuff Size: Regular) | Pulse 68 | Ht 1.753 m (5' 9") | Wt 83.6 kg (184 lb 3.2 oz) | SpO2 98% | BMI 27.20 kg/m | BSA 2.02 m Body mass index is 27.2 kg/m. Constitutional: no acute distress HEENT: normal: [...] Data Review: Component Latest Ref Rng 04/30/2024 Potassium 3.5 - 5.1 mmol/L 3.6 BUN 6 - 20 mg/dL 9 Creatinine 0.5 - 1.0 mg/dL 0.8 Estimated Glomerular Filtration Rate >=60 mL/min 86 Sodium 135 - 146 mmol/L 138 Chloride 98 - 107 mmol/L 105 CO2 22 - 32 mmol/L 22 Anion Gap 7 - 15 mmol/L 11 Glucose 70 - 120 mg/dL 88 Calcium 8.4 - 10.2 mg/dL 9.1 Albumin 3.8 - 5.0 g/dL 4.2 AST 10 - 35 U/L 19 Alkaline Phosphatase 35 - 130 U/L 74 Bilirubin, Total <=1.2 mg/dL 0.7 Protein 6.0 - 8.3 g/dL 6.7 ALT 10 - 35 U/L 17 Component Latest Ref Rng 04/30/2024 HGB 12.0 - 15.3 g/dL 16.2 (H) WBC 4.00 - 10.80 K/uL 4.41 RBC 3.85 - 5.15 M/uL 5.28 HCT 36.0 - 45.2 % 46.2 (H) MCV 81.5 - 97.5 fL 87.5 MCH 27.0 - 34.0 pg 30.7 MCHC 32.0 - 36.0 g/dL 35.1 RDW 11.5 - 15.5 % 12.4 PLT 140 - 400 K/uL 310 MPV 6.6 - 11.1 fL 10.0 nRBCs <=0 /100 WBCs 0 Component Latest Ref Rng 04/30/2024 Troponin T, High Sensitivity <=14 ng/L 23 (H) Troponin T, High Sensitivity 21 (H) Component Latest Ref Rng 03/30/2024 Triglycerides <=174 mg/dL 54 Cholesterol <200 mg/dL 188 HDL Cholesterol >49 mg/dL 73 Non-HDL Cholesterol <=159 mg/dL 115 LDL Cholesterol <=129 mg/dL 104 Component Latest Ref Rng 03/30/2024 Hemoglobin A1C 4.0 - 5.6 % 4.7 Estimated Average Glucose <126 mg/dL 88 Component Latest Ref Rng 03/30/2024 TSH 0.27 - 4.20 uIU/mL 0.72 CARDIAC STUDIES: EK04/30/2024: Sinus bradycardia, Qtc 445 ms 05/07/2014: NSR, Qtc 452 ms 04/14/2024: NSR, Qtc 450 ms IMPRESSION: Dizziness. Vitals rechecked during visit: Sitting: BP 122/80, HR 58 bpm. Standing: BP 130/82, HR 77-79 bpm. Noted to have positive orthostatics at recent ER visit (unable to view BP and HR from this assessment). Bradycardia. Qtc WNL on recent EKG, per patient prior EKG done at OSH showed QT prolongation. Patient has been on Plaqeunil since 2020 which has an association with conduction system abnormalities and cardiomyopathy. Ziprasidone also has association with conduction system abnormalities, QT prolongation. Hypertension, controlled. SCLE, on Plaquenil. While cardiac involvement is seen with systemic lupus, it is less less clear with cutaneous lupus. Patient previously has not shown manifestations of systemic lupus. Will discuss with Rheumatology regarding possibility of progression to systemic disease. PLAN: Detailed discussed with patient and her regarding symptoms and possible etiologies (autonomic, cardiac, drug-induced, rheumatologic/lupus-related). Follow-up on Ziopatch results. Schedule echocardiogram. Follow-up in 1 month. Aiyana Mondragon DO Cardiology [facility], [address] [address] 05/06/2024 documented in this encounter Plan of Treatment Upcoming Encounters Date Type Department Care Team (Late st Contact Info) Description 05/21/2024 8:00 AM EDT Appointment Cardiac Studies, [address] [address] 06/10/2024 11:30 AM EDT Office Visit Cardiology [facility] [address] Aiyana Mondragon DO [address] [facility] [place] [address] 06/29/2024 3:00 PM EDT Office Visit Neurology [facility] [address] [facility] [place] [address] Keren Fuller MD [address] [facility] [place] [address] 08/03/2024 8:00 AM EST Office Visit Rheumatology [address] [place] [address] Jim Kearney CRNP [address] [place] [address] [place] [address] 08/17/2024 10:30 AM EST Imaging Radiology [facility] [address] [facility] [address] [facility] [place] [address] 08/17/2024 11:00 AM EST Imaging Radiology [address] [place] [address] 12/28/2024 8:30 AM EDT Office Visit Gynecology/Obstetrics Jesus Johnson [address] [place] [address] Diana Harkins CRNP [address] [place] [address] Scheduled Orders Name Type Priority Associated Diagnoses Orde r Schedule ECHO, COMPLETE (2D), TRANS-THORACIC Echocardiology Routine Dizziness Bradycardia Expected: 05/07/2024, Expires: 06/06/2026 Scheduled Procedures Name Priority Associated Diagnoses Date/Ti [...] this encounter Medical Devices Implanted Type Area Account Retention Representative Device Identifier Shelf Expiration Date Model / Serial / Lot Graft Healos 10 2761-60-010 - [id number] Implanted:Qty: 1 on 08/30/2008 at [place] [facility] N/A: Spine Lumbar [employer] 10/17/2009 [id number] / / [id number] Graft Healos [facility] [id number] - [id number] Implanted:Qty: 1 on 08/30/2008 at OR [facility] N/A: Spine Lumbar [employer] 10/17/2009 [id number] / / [id number] Tavo 5.5x80 Prebnt Ti [id number] - [id number] Implanted:Qty: 1 on 08/30/2008 at OR [facility] Bilateral: Spine Lumbar Medtronic Sofamor D[place]k [id number] / / Expedium Ti Sfx 5.5 Lat A6 - [id number] Implanted:Qty: 1 on 08/30/2008 at [facility] Spine Lumbar [employer] [id number] / / Cage Implanted:Qty: 1 on 08/30/2008 at [facility] N/A: Spine Lumbar [employer] [id number] / / 70 Cm Contract Trial Lead [employer] Implanted:Qty: 1 on 11/24/2009 at OR [facility] N/A: Back [facility] 07/17/2011 [id number] / / [id number] documented as of this encounter Visit Diagnoses Diagnosis Dizziness- Primary Dizziness and giddiness Bradycardia Other specified cardiac dysrhythmias Subacute cutaneous lupus erythematosus Lupus erythematosus documented in this encounter Advance Directives * [...] 9:09 AM 08/30/2008 5:07 PM Care Teams Preflight Inspector Relationship Specialty Start Date End Date Akanksha Parrish PA-C [address] [place] [address] PCP - General Physician Licensed Staff Mft 04/23/23 documented as of this encounter
[2024-06-28] MEDS: ASPIRIN CHEW 324 MG PO STA (02:14)
[2024-06-28 02:22] LABS: Basophils # (auto) 0.08 K/uL (0.00-0.20); Basophils % (auto) 1.4 %; Eosinophils # (auto) 0.26 K/uL (0.00-0.50); Eosinophils % (auto) 4.6 %; Hematocrit (blood only) 46.1 % (37.0-47.0); Hemoglobin 15.4 g/dl (12.0-16.0); Immature Granulocytes # (auto) 0.04 K/uL (0.01-0.20); Immature Granulocytes % (auto) 0.7 %; Lymphocytes # (auto) 1.39 K/uL (1.20-3.40); Lymphocytes % (auto) 24.8 %; Mean Corpuscular Hemoglobin 29.8 pg (25.0-34.0); Mean Corpuscular Hgb Conc 33.4 g/dL (32.0-36.0); Mean Corpuscular Volume 89.3 fL (80.0-100.0); Mean Platelet Volume 10.7 fL (9.4-12.4); Monocytes % (auto) 12.5 %; Neutrophils # (auto) 3.14 K/uL (1.40-6.50); Platelet Count 308 K/uL (130-400); RDW Coefficient of Variation 11.6 % (11.5-14.5); RDW Standard Deviation 37.6 fL (36.4-46.3); Red Blood Count 5.16 M/uL (4.20-5.40); White Blood Count 5.61 K/ul (4.8-10.8)
[2024-06-28 02:30] LABS: Albumin Globulin Ratio 1.6 (0.9-2); Albumin Level 4.4 gm/dl (3.4-5.0); BUN Creatinine Ratio 19.2 (10-20); Bilirubin,Total 0.7 mg/dl (0.2-1.0); Calcium 8.8 mg/dl (8.6-10.3); Creatinine Clr Calc Pharmacy 111.7 ml/min; Globulin 2.7 gm/dl (2.5-4.0); Potassium 3.3 mmol/L (3.5-5.1); Total Protein 7.1 gm/dl (6.0-8.3)
[2024-06-28 02:35] LABS: Troponin I High Sensitivity 3.9 pg/ml (0-14)
--- NOTE | 2024-06-28 03:31 | Emergency Department Note ---
Impression & Plan Substernal chest pain Admit to the [facility] ED Provider Note NAME: DAVID WHEELER AGE: 48 SEX: Female INFORMANT: Patient ED PROVIDER(S): Mariana Craig DO CHIEF COMPLAINT: substernal chest pain PLAN: Disposition: admit to the [facility] MEDICAL DECISION MAKING: this is a 48-year-old female patient who awoke from sleep with substernal chest pain. Patient underwent a stress echo just yesterday through [facility]. She was alerted that this stress echo was abnormal and that she would be started on atorvastatin and aspirin daily and was given a prescription for nitroglycerin. She was to follow-up with cardiology on Saturday. She was told if she had any additional episodes of chest discomfort that she should seek attention at the emergency department. I reviewed the stress echo report in [facility]: There is a large sized apical, anteroseptal, anterior, and lateral wall motion abnormality with hypokinesis to akinesis of the segments. The left ventricular ejection fraction decreases with stress. This was considered to be "significantly abnormal." On presentation to the ER tonight, EKG was unremarkable and the patient's discomfort had resolved on its own. Laboratory studies revealed no leukocytosis or anemia. Potassium was slightly low at 3.3. Troponin is negative. Renal function was normal. Chest x-ray was unremarkable. Patient's blood pressure was slightly elevated. She had taken 1 baby aspirin at home. I gave her the additional 243 mg here. [facility] and [facility] will [facility] for further inpatient care and cardiology consultation. Care/management discussed with: retirement village manager and [facility] Triage Nursing notes: reviewed and agree with them. Vital Signs: reviewed and remarkable for hypertension Additional History obtained from: who is at the bedside Chronic Medical/Social Conditions affecting care: Recently diagnosed significant heart disease Prior/ Outside/ External records reviewed: Reviewed the stress echo report in [facility] Differential Diagnosis: STEMI, NSTEMI, unstable angina, GERD Diagnostics, independently interpreted by me: ECG: normal sinus rhythm at a rate of [address] segment elevation or signs of ischemia. There is no ectopy. Cardiac Monitoring: Normal sinus rhythm at a rate of 64 Imaging studies: portable chest x-ray: Narrow mediastinum with no pulmonary infiltrates or consolidations. HPI: 48 year old Female arrives for evaluation of substernal chest pain. Patient was asleep when she was awoke from sleep with substernal chest discomfort that took her breath away. The pain had been ongoing for approximately 1 hour and seems to be resolving as she arrives here in the emergency department. She denies any associated nausea, vomiting or diaphoresis. PAST MEDICAL HISTORY: See Below, PAST SURGICAL HISTORY: See Below, SOCIAL HISTORY: See Below, HOME MEDICATIONS: See list ALLERGIES: See list VITALS: See Below PHYSICAL EXAMINATION: HEENT: Head - normocephalic and atraumatic Pupils are equal, round, and reactive to light. Extraocular eye muscles are intact, and sclera are anicteric. Nose - moist nasal mucosa without discharge. Mouth - moist buccal mucosa. Oropharynx is nonerythematous and there is no tonsillar exudate or edema noted. Neck: Supple; no JVD, nuchal rigidity, cervical lymphadenopathy, or auscultated bruits. Heart: Regular rate and rhythm. There is a normal S1 and S2 with no murmurs, clicks, or gallops appreciated. Lungs: Clear to auscultation bilaterally with no wheezes, rales, or rhonchi. Abdomen: Soft, completely nontender, nondistended, with good bowel sounds. There are no palpable pulsatile masses or hepatosplenomegaly. There is no guarding, rigidity, or rebound noted. Extremities: No evidence of cyanosis, clubbing, or edema. There are easily palpable peripheral pulses. Skin: warm and dry with good turgor and no rashes. Emergency department course: Patient was evaluated in room B-9. A complete history and physical was performed. Records from [facility] were reviewed. IV lock was initiated and labs were drawn as above. Twelve-lead EKG was obtained as described above. Order was placed for continuous cardiac monitoring. The patient was in a normal sinus rhythm at a rate of 64. The patient was given an additional 243 mg of aspirin to chew. Portable chest x-ray was performed. I [facility] the [facility] and [facility] will evaluate for further inpatient care and cardiology evaluation. Patient was currently chest pain-free upon my initial evaluation and repeat evaluations Past Med/Surg History Problem List (Updated 06/28/24 @ 18:44 by Mariana Craig DO) Substernal chest pain (Acute) Unstable angina pectoris Chest pain Lumbar facet arthropathy Acute bronchitis (Acute) Ankle swelling (Acute) Ankle swelling (Acute) Depression Hypokalemia (Acute) Obesity Obesity (BMI 35.0-39.9 without comorbidity) History of thymectomy Nicotine abuse Migraine Medical History Chronic back pain GERD (gastroesophageal reflux disease) Jaw clicking Bipolar disorder Anxiety and depression Peripheral neuropathy BLE Hypertension Surgical History Family history of reaction to anesthesia FATHER-SLOW TO WAKE UP History of gynecologic surgery HYMENECTOMY History of ankle surgery LEFT History of tooth extraction History of laryngoscopy BENIGN Family History Grandmother (Paternal) Family history of diabetes mellitus Grandmother (Maternal) Family history of diabetes mellitus Social History Smoking Status: Current every day smoker Tobacco Type: E-cigarettes / Vaping Cigarettes Per Day: 1 PPD; Second Hand Exposure: Yes; Do You Dip or Chew Tobacco: No; Hx Alcohol Use: No Hx Substance Use: No Preferred Language: Lao Communication Ability: Effective Chemistry Technical Officer Required: No Beliefs That Will Affect Care: None marital status: Current Living Situation: Spouse and Other Current Living Situation Comment: Lives with and son current occupational status: employed Other Information That Helps Us Care for You: Yes Feels Safe at Home: Yes Safety Concerns: Feels Safe At This Time Assistive Devices: None Allergies Allergies Allergy/AdvReac Type Severity Reaction Status Date / Time hydrocodone AdvReac Mild SICK TO Verified 04/20/20 12:44 STOMACH AND HEADACHE tramadol AdvReac Mild UPSET Verified 04/20/20 12:44 STOMACH Home Meds Home Medications Medication Instructions Recorded Confirmed albuterol sulfate 90 mcg/actuation 2 puff inhalation Q4H PRN sob 06/28/24 06/28/24 aerosol inhaler (Ventolin HFA) aspirin 81 mg tablet,delayed 81 mg PO DAILY 06/28/24 06/28/24 release atorvastatin 40 mg tablet 40 mg PO DAILY 06/28/24 06/28/24 bupropion HCl 150 mg tablet,12 hr 150 mg PO DAILY 06/28/24 06/28/24 sustained-release gabapentin 800 mg tablet 800 mg PO TID 06/28/24 06/28/24 hydroxychloroquine 200 mg tablet 400 mg PO HS 06/28/24 06/28/24 (Plaquenil) lamotrigine 200 mg tablet 300 mg PO DAILY 06/28/24 06/28/24 (Lamictal) linaclotide 145 mcg capsule 145 mcg PO DAILY 06/28/24 06/28/24 (Linzess) meloxicam 15 mg tablet 15 mg PO DAILY PRN Pain 06/28/24 06/28/24 nitroglycerin 0.4 mg sublingual 0.4 mg sublingual UD chest pain 06/28/24 06/28/24 tablet (Nitrostat) topiramate 100 mg tablet (Topamax) 100 mg PO BID 06/28/24 06/28/24 ziprasidone HCl 60 mg capsule 60 mg PO DAILY 06/28/24 06/28/24 (Geodon) Results & Data (ED) Vital Signs Vital Signs - 24 hr 06/28/24 01:45 06/28/24 01:59 06/28/24 01:59 Temperature 36.7 C Temperature Source Temporal Artery Scan Pulse Rate 67 58 L Pulse Rate [Apical] Pulse Rhythm Pulse Rhythm [Apical] Pulse Strength [Apical] Respiratory Rate 18 Respiratory Effort / Characteristics Non-Labored Spontaneous Respiratory Depth Normal Respiratory Pattern Blood Pressure 144/102 H Blood Pressure [Right Arm] Blood Pressure Mean 116 Blood Pressure Mean [Right Arm] Blood Pressure Position [Right Arm] Pulse Oximetry 99 100 Oxygen Delivery Method Room Air Room Air Sepsis Recent Fever Within 48 Hours No Sepsis New/Unexplained Change in Mental Status N/A Sepsis Action Taken by Nursing No Action Required 06/28/24 01:59 06/28/24 01:59 06/28/24 04:00 Temperature Temperature Source Pulse Rate 56 L Pulse Rate [Apical] 59 L 51 L Pulse Rhythm Regular Pulse Rhythm [Apical] Regular Regular Pulse Strength [Apical] Normal Normal Respiratory Rate 18 18 18 Respiratory Effort / Characteristics Non-Labored Spontaneous Non-Labored Spontaneous Respiratory Depth Normal Normal Respiratory Pattern Regular Regular Blood Pressure Blood Pressure [Right Arm] 127/91 122/74 Blood Pressure Mean Blood Pressure Mean [Right Arm] 103 90 Blood Pressure Position [Right Arm] Semi-fowlers Semi-fowlers Pulse Oximetry 100 100 100 Oxygen Delivery Method Room Air Room Air Room Air Sepsis Recent Fever Within 48 Hours Sepsis New/Unexplained Change in Mental Status Sepsis Action Taken by Nursing Laboratory Data 06/28/24 06:56 06/28/24 06:56 Lab Results 06/28/24 Range/Units 01:59 WBC 5.61 (4.8-10.8) K/ul RBC 5.16 (4.20-5.40) M/uL Hgb 15.4 (12.0-16.0) g/dl Hct 46.1 (37.0-47.0) % MCV 89.3 (80.0-100.0) fL MCH 29.8 (25.0-34.0) pg MCHC 33.4 (32.0-36.0) g/dL RDW Std Deviation 37.6 (36.4-46.3) fL RDW Coeff of Sandra 11.6 (11.5-14.5) % Plt Count 308 (130-400) K/uL MPV 10.7 (9.4-12.4) fL Immature Gran % (Auto) 0.7 % Neut % (Auto) 56.0 % Lymph % (Auto) 24.8 % Starr % (Auto) 12.5 % Eos % (Auto) 4.6 % Baso % (Auto) 1.4 % Neut # (Auto) 3.14 (1.40-6.50) K/uL Lymph # (Auto) 1.39 (1.20-3.40) K/uL Starr # (Auto) 0.70 H (0.11-0.59) K/uL Eos # (Auto) 0.26 (0.00-0.50) K/uL Baso # (Auto) 0.08 (0.00-0.20) K/uL Immature Gran # (Auto) 0.04 (0.01-0.20) K/uL Sodium 140 (136-145) mmol/L Potassium 3.3 L (3.5-5.1) mmol/L Chloride 109 H (98-107) mmol/L Carbon Dioxide 24 (21-32) mmol/L Anion Gap 7 (3-11) BUN 14 (6-23) mg/dl Creatinine 0.73 (0.6-1.2) mg/dl Est Cr Clr Drug Dosing 111.7 ml/min eGFR 102.01 BUN/Creatinine Ratio 19.2 (10-20) Glucose 83 (70-99(Fasting)) mg/dl Calcium 8.8 (8.6-10.3) mg/dl Total Bilirubin 0.7 (0.2-1.0) mg/dl AST 14 (13-39) U/L ALT 10 (7-52) U/L Alkaline Phosphatase 86 (34-104) U/L Troponin I High Sens 3.9 (0-14) pg/ml Total Protein 7.1 (6.0-8.3) gm/dl Albumin 4.4 (3.4-5.0) gm/dl Globulin 2.7 (2.5-4.0) gm/dl Albumin/Globulin Ratio 1.6 (0.9-2) Lipase 12 (11-82) U/L Administered Medications Acetaminophen (Acetaminophen 325 Mg Tab) 650 mg PO Q4H PRN PRN Reason: Pain or Fever Stop: 07/28/24 05:05 Last Admin: 06/28/24 14:44 Dose: 650 mg Documented By: DANNY Aspirin (Aspirin 81 Mg Ectab) 81 mg PO DAILY [facility] Stop: 07/28/24 08:59 Last Admin: 06/28/24 09:37 Dose: 81 mg Documented By: DANNY Atorvastatin Calcium (Atorvastatin 40 Mg Tab) 40 mg PO DAILY [facility] Stop: 07/28/24 08:59 Last Admin: 06/28/24 09:37 Dose: 40 mg Documented By: DANNY Bupropion HCl (Bupropion Sr 150 Mg Tabcr) 150 mg PO DAILY [facility] Stop: 07/28/24 08:59 Last Admin: 06/28/24 09:37 Dose: 150 mg Documented By: DANNY Gabapentin (Gabapentin 800 Mg Tab) 800 mg PO TID [facility] Stop: 07/28/24 08:59 Last Admin: 06/28/24 12:29 Dose: 800 mg Documented By: Admin: 06/28/24 09:37 Dose: 800 mg Documented By: DANNY Heparin Sodium/Dextrose (Heparin Sodium/Dextrose) 25,000 units in 500 mls @ 26 mls/hr IV .[id number] [facility]; Protocol Stop: 07/28/24 09:59 Last Titration: 06/28/24 18:00 Dose: 1,300 units/hr, 26 mls/hr Documented By: DANNY Co-signed By: Admin: 06/28/24 10:24 Dose: 1,350 units/hr, 27 mls/hr Documented By: DANNY Co-signed By: JODI Lamotrigine (Lamotrigine 100 Mg Tab) 300 mg PO DAILY [facility]; Protocol Stop: 07/28/24 08:59 Last Admin: 06/28/24 09:38 Dose: 300 mg Documented By: DANNY Linaclotide (Linaclotide 145 Mcg Capsule) 145 mcg PO DAILY [facility] Stop: 07/28/24 08:59 Last Admin: 06/28/24 09:38 Dose: 145 mcg Documented By: DANNY Nitroglycerin (Nitroglycerin 2% Ointment 30gm Tube) 0.5 inch EXT Q6H [facility] Stop: 07/28/24 11:44 Last Admin: 06/28/24 18:06 Dose: 0.5 inch Documented By: Admin: 06/28/24 12:28 Dose: 0.5 inch Documented By: DANNY Topiramate (Topiramate 100 Mg Tab) 100 mg PO BID [facility] Stop: 07/28/24 08:59 Last Admin: 06/28/24 09:38 Dose: 100 mg Documented By: DANNY Ziprasidone (Ziprasidone Hcl 20 Mg Cap) 60 mg PO DAILY [facility] Stop: 07/28/24 08:59 Last Admin: 06/28/24 09:37 Dose: 60 mg Documented By: DANNY Discontinued Medications Aspirin (Aspirin Chew 324 Mg) 243 mg PO NOW STA Stop: 06/28/24 02:10 Last Admin: 06/28/24 02:14 Dose: 243 mg Documented By: CHINO Heparin Sodium (Porcine) (Heparin Sod (Porcine) 1000 Unit/Ml) 6,000 units IV NOW ONE Stop: 06/28/24 10:01 Last Admin: 06/28/24 10:24 Dose: 6,000 units Documented By: DANNY Co-signed By: JODI Heparin Sodium/Dextrose (Heparin Iv Adult Wt-Based Standard W/ Initial Bolus Protocol) 1 each IV NOW STA; Protocol Stop: 06/28/24 09:37 Last Admin: 06/28/24 10:24 Dose: Not Given Documented By: DANNY Potassium Chloride (Potassium Chloride Crtab 20 Meq Tabcr) 40 meq PO NOW STA Stop: 06/28/24 03:57 Last Admin: 06/28/24 04:51 Dose: 40 meq Documented By: IDD Imaging Data Radiologist's Impression: Chest X-Ray 06/28/24 01:59 XR chest 1V portable HISTORY: 48 years-old Female Chest pain, nonspecific acute chest pain COMPARISON: 04/29/2024 TECHNIQUE: AP view of the chest FINDINGS: Cardiomediastinal and hilar silhouettes appear normal. No pneumothorax, pleural effusion or airspace consolidation. Bones appear grossly intact. IMPRESSION: No acute process. ACT 112: Negative or not required by law. The above report was generated using voice recognition software. It may contain grammatical, syntax or spelling errors. Electronically signed by: Jaleel Ash M.D. 06/28/2024 8:26 AM Discharge Plan Visit Data Chief Complaint: Chest Pain Stated Complaint: CHEST PAIN ED Provider: Mariana Craig Discharge Problem: Substernal chest pain Patient Disposition: Admitted As Inpatient Discharge Instructions Interventions: ED Discharge Assessment Last Done: 06/28/24 04:48
--- NOTE | 2024-06-28 04:36 | History & Physical Report ---
Date of Service June 28, 2024 Assessment & Plan (1) Chest pain: Plan: 48-year-old female with a past medical history significant for hypokalemia, hypertension, lichen sclerosus, adjustment disorder with depression mood, postlaminectomy syndrome, bipolar disorder, subcutaneous lupus erythematosus, recurrent UTIs, migraines and anxiety comes because of chest pain. Patient has history orthostatics and bradycardia and chest pains and seen by cardiology and hydrochlorothiazide was stopped and stress test was ordered. Stress test was completed on 06/26/2024. And the stress test showed significant abnormalities suggesting ischemia at peak exercise. Cardiology called patient and started on aspirin and statin and nitroglycerin as needed which she started taking today. Has follow-up appointment with cardiology next week and was advised to go to ER for any anginal symptoms. Patient states last couple of days she has not exerting herself. Tonight around 12:30 AM she woke up from sleep with left- sided chest pain 5/10 in severity. No radiation. The pain lasted for a half an hour and went away on its own. No shortness of breath. No nausea. No sweating. No dizziness. Currently resting comfortably and pain-free. Hemodynamically stable. Denies any headache. No blurred vision. No runny nose or sore throat. No cough. No earaches. No fevers. No abdominal pain. Normal bowel and bladder movements. No swelling in the legs. Chest pain Recent abnormal stress test Currently pain-free EKG and initial troponin negative Possibly angina Will follow serial enzymes and repeat EKG Telemetry Continue aspirin and statin N.p.o. Cardiac consult in a.m. for further recommendations Hypertension Recent hydrochlorothiazide was stopped for orthostatic hypotension Will monitor History of subcutaneous lupus erythematosus On Plaquenil Adjustment disorder with depressive mood Bipolar disorder Anxiety Bupropion, Lamictal and Geodon Migraines On Topamax DVT prophylaxis SCDs Disposition Telemetry Full code. History of Present Illness Chief Complaint: Chest pain Primary Care Provider: Akanksha Parrish PA-C 48-year-old female with a past medical history significant for hypokalemia, hypertension, lichen sclerosus, adjustment disorder with depression mood, postlaminectomy syndrome, bipolar disorder, subcutaneous lupus erythematosus, recurrent UTIs, migraines and anxiety comes because of chest pain. Patient has history orthostatics and bradycardia and chest pains and seen by cardiology and hydrochlorothiazide was stopped and stress test was ordered. Stress test was completed on 06/26/2024. And the stress test showed significant abnormalities suggesting ischemia at peak exercise. Cardiology called patient and started on aspirin and statin and nitroglycerin as needed which she started taking today. Has follow-up appointment with cardiology next week and was advised to go to ER for any anginal symptoms. Patient states last couple of days she has not exerting herself. Tonight around 12:30 AM she woke up from sleep with left- sided chest pain 5/10 in severity. No radiation. The pain lasted for a half an hour and went away on its own. No shortness of breath. No nausea. No sweating. No dizziness. Currently resting comfortably and pain-free. Hemod ynamically stable. Denies any headache. No blurred vision. No runny nose or sore throat. No cough. No earaches. No fevers. No abdominal pain. Normal bowel and bladder movements. No swelling in the legs. Past medical history. As mentioned above Past surgical history. Colonoscopy. Cryocautery of cervix. Dilatation curettage. Diagnostic laparoscopy. Lumbar hemilaminectomy. Social history. . Quit smoking 2016. Vapes nicotine. Alcohol rare. No drug use. Family history. Father had heart disorder. Hodgkin's lymphoma. Maternal grandmother had breast cancer. Diabetes. Paternal grandmother had breast cancer. Diabetes. Allergies Allergy/AdvReac Type Severity Reaction Status Date / Time hydrocodone AdvReac Mild SICK TO Verified 04/20/20 12:44 STOMACH AND HEADACHE tramadol AdvReac Mild UPSET Verified 04/20/20 12:44 STOMACH Home Medications Medication Instructions Recorded Confirmed Type albuterol sulfate 90 mcg/actuation 2 puff inhalation Q4H PRN sob 06/28/24 06/28/24 History aerosol inhaler (Ventolin HFA) aspirin 81 mg tablet,delayed 81 mg PO DAILY 06/28/24 06/28/24 History release atorvastatin 40 mg tablet 40 mg PO DAILY 06/28/24 06/28/24 History bupropion HCl 150 mg tablet,12 hr 150 mg PO DAILY 06/28/24 06/28/24 History sustained-release gabapentin 800 mg tablet 800 mg PO TID 06/28/24 06/28/24 History hydroxychloroquine 200 mg tablet 400 mg PO HS 06/28/24 06/28/24 History (Plaquenil) lamotrigine 200 mg tablet 300 mg PO DAILY 06/28/24 06/28/24 History (Lamictal) linaclotide 145 mcg capsule 145 mcg PO DAILY 06/28/24 06/28/24 History (Linzess) meloxicam 15 mg tablet 15 mg PO DAILY PRN Pain 06/28/24 06/28/24 History nitroglycerin 0.4 mg sublingual 0.4 mg sublingual UD chest pain 06/28/24 06/28/24 History tablet (Nitrostat) topiramate 100 mg tablet (Topamax) 100 mg PO BID 06/28/24 06/28/24 History ziprasidone HCl 60 mg capsule 60 mg PO DAILY 06/28/24 06/28/24 History (Geodon) Past Med/Surg History Problem List (Updated 06/28/24 @ 04:53 by Manny Hinson MD) Chest pain Lumbar facet arthropathy Acute bronchitis (Acute) Ankle swelling (Acute) Ankle swelling (Acute) Depression Hypokalemia (Acute) Obesity Obesity (BMI 35.0-39.9 without comorbidity) History of thymectomy Nicotine abuse Migraine Medical History Chronic back pain GERD (gastroesophageal reflux disease) Jaw clicking Bipolar disorder Anxiety and depression Peripheral neuropathy BLE Hypertension Surgical History Family history of reaction to anesthesia FATHER-SLOW TO WAKE UP History of gynecologic surgery HYMENECTOMY History of ankle surgery LEFT History of tooth extraction History of laryngoscopy BENIGN Family History Grandmother (Paternal) Family history of diabetes mellitus Grandmother (Maternal) Family history of diabetes mellitus Social History Smoking Status: Current every day smoker Tobacco Type: E-cigarettes / Vaping Cigarettes Per Day: 1 PPD; Second Hand Exposure: Yes; Do You Dip or Chew Tobacco: No; Hx Alcohol Use: No Hx Substance Use: No Preferred Language: Faroese Communication Ability: Effective Armament Aircraft Mechanic Required: No Beliefs That Will Affect Care: None marital status: Current Living Situation: Spouse and Other Current Living Situation Comment: Lives with and son current occupational status: employed Other Information That Helps Us Care for You: Yes Feels Safe at Home: Yes Safety Concerns: Feels Safe At This Time Assistive Devices: None Review of Systems Review of Systems: All systems reviewed & are unremarkable except as noted in HPI & below Physical Exam Physical Exam: General- Not in distress. Head- atraumatic Eyes- PERRL. ENT- oropharynx clear Neck- supple, no JVD. Lungs- clear to auscultation no wheezing or crackles. Heart- regular rate and rhythm; no murmur, no gallop. Abdomen- normal bowel sounds, soft, nontender, no distension Extremities- no pretibial edema, no erythema seen Neuro- alert, oriented PERRL, EOMI; no facial palsy; no dysarthria; moves extremities Results & Data Results & Data Vital Signs (Past 12 Hours) Vital Signs Temp Pulse Pulse Resp BP BP Pulse Ox 06/28/24 04:00 51 L 18 122/74 100 06/28/24 01:59 56 L 18 100 06/28/24 01:59 59 L 18 127/91 100 06/28/24 01:59 100 06/28/24 01:59 58 L 06/28/24 01:45 36.7 C 67 18 144/102 H 99 O2 Del Method 06/28/24 04:00 Room Air 06/28/24 01:59 Room Air 06/28/24 01:59 Room Air 06/28/24 01:59 Room Air 06/28/24 01:59 06/28/24 01:45 Room Air Diagnostic Findings Laboratory Results WBC 5.61 K/ul (4.8-10.8) 06/28/24 01:59 RBC 5.16 M/uL (4.20-5.40) 06/28/24 01:59 Hgb 15.4 g/dl (12.0-16.0) 06/28/24 01:59 Hct 46.1 % (37.0-47.0) 06/28/24 01:59 MCV 89.3 fL (80.0-100.0) 06/28/24 01:59 MCH 29.8 pg (25.0-34.0) 06/28/24 01:59 MCHC 33.4 g/dL (32.0-36.0) 06/28/24 01:59 RDW Std Deviation 37.6 fL (36.4-46.3) 06/28/24 01:59 RDW Coeff of Sandra 11.6 % (11.5-14.5) 06/28/24 01:59 Plt Count 308 K/uL (130-400) 06/28/24 01:59 MPV 10.7 fL (9.4-12.4) 06/28/24 01:59 Immature Gran % (Auto) 0.7 % 06/28/24 01:59 Neut % (Auto) 56.0 % 06/28/24 01:59 Lymph % (Auto) 24.8 % 06/28/24 01:59 [place] % (Auto) 12.5 % 06/28/24 01:59 Eos % (Auto) 4.6 % 06/28/24 01:59 Baso % (Auto) 1.4 % 06/28/24 01:59 Neut # (Auto) 3.14 K/uL (1.40-6.50) 06/28/24 01:59 Lymph # (Auto) 1.39 K/uL (1.20-3.40) 06/28/24 01:59 [place] # (Auto) 0.70 K/uL (0.11-0.59) H 06/28/24 01:59 Eos # (Auto) 0.26 K/uL (0.00-0.50) 06/28/24 01:59 Baso # (Auto) 0.08 K/uL (0.00-0.20) 06/28/24 01:59 Immature Gran # (Auto) 0.04 K/uL (0.01-0.20) 06/28/24 01:59 Sodium 140 mmol/L (136-145) 06/28/24 01:59 Potassium 3.3 mmol/L (3.5-5.1) L 06/28/24 01:59 Chloride 109 mmol/L (98-107) H 06/28/24 01:59 Carbon Dioxide 24 mmol/L (21-32) 06/28/24 01:59 Anion Gap 7 (3-11) 06/28/24 01:59 BUN 14 mg/dl (6-23) 06/28/24 01:59 Creatinine 0.73 mg/dl (0.6-1.2) 06/28/24 01:59 Est Cr Clr Drug Dosing 111.7 ml/min 06/28/24 01:59 eGFR 102.01 06/28/24 01:59 BUN/Creatinine Ratio 19.2 (10-20) 06/28/24 01:59 Glucose 83 mg/dl (70-99(Fasting)) 06/28/24 01:59 Calcium 8.8 mg/dl (8.6-10.3) 06/28/24 01:59 Total Bilirubin 0.7 mg/dl (0.2-1.0) 06/28/24 01:59 AST 14 U/L (13-39) 06/28/24 01:59 ALT 10 U/L (7-52) 06/28/24 01:59 Alkaline Phosphatase 86 U/L (34-104) 06/28/24 01:59 Troponin I High Sens 3.9 pg/ml (0-14) 06/28/24 01:59 Total Protein 7.1 gm/dl (6.0-8.3) 06/28/24 01:59 Albumin 4.4 gm/dl (3.4-5.0) 06/28/24 01:59 Globulin 2.7 gm/dl (2.5-4.0) 06/28/24 01:59 Albumin/Globulin Ratio 1.6 (0.9-2) 06/28/24 01:59 Lipase 12 U/L (11-82) 06/28/24 01:59 ECG Additional Comments: ECG. Normal sinus rhythm rate 62. No acute ST changes seen. QTc 460 Code Status & VTE Plan VTE Prophylaxis Plan VTE Prophylaxis will be ordered: Yes
[2024-06-28] MEDS: POTASSIUM CHLORIDE CRTAB 20 MEQ TABCR PO STA (04:51)
[2024-06-28] MEDS ORDERED: POLYETHYLENE (MIRALAX) 17 GM PACK PO PRN (05:06)
[2024-06-28] MEDS ORDERED: ALBUTEROL HFA 8 GM INHALER INH PRN (05:06)
[2024-06-28 07:28] LABS: Basophils # (auto) 0.06 K/uL (0.00-0.20); Basophils % (auto) 1.3 %; Eosinophils # (auto) 0.22 K/uL (0.00-0.50); Eosinophils % (auto) 4.7 %; Hematocrit (blood only) 39.8 % (37.0-47.0); Hemoglobin 13.4 g/dl (12.0-16.0); Immature Granulocytes # (auto) 0.04 K/uL (0.01-0.20); Immature Granulocytes % (auto) 0.8 %; Lymphocytes # (auto) 0.91 K/uL (1.20-3.40); Lymphocytes % (auto) 19.3 %; Mean Corpuscular Hemoglobin 30.2 pg (25.0-34.0); Mean Corpuscular Hgb Conc 33.7 g/dL (32.0-36.0); Mean Corpuscular Volume 89.6 fL (80.0-100.0); Mean Platelet Volume 10.5 fL (9.4-12.4); Monocytes # (auto) 0.66 K/uL (0.11-0.59); Neutrophils # (auto) 2.82 K/uL (1.40-6.50); Neutrophils % (auto) 59.9 %; Platelet Count 257 K/uL (130-400); RDW Coefficient of Variation 11.6 % (11.5-14.5); RDW Standard Deviation 37.8 fL (36.4-46.3); Red Blood Count 4.44 M/uL (4.20-5.40); White Blood Count 4.71 K/ul (4.8-10.8)
[2024-06-28 07:34] LABS: BUN Creatinine Ratio 17.2 (10-20); Calcium 8.2 mg/dl (8.6-10.3); Creatinine Clr Calc Pharmacy 127.1 ml/min; Potassium 4.1 mmol/L (3.5-5.1)
--- NOTE | 2024-06-28 08:27 | XRay Report ---
XR chest 1V portable HISTORY: 48 years-old Female Chest pain, nonspecific acute chest pain COMPARISON: 04/29/2024 TECHNIQUE: AP view of the chest FINDINGS: Cardiomediastinal and hilar silhouettes appear normal. No pneumothorax, pleural effusion or airspace consolidation. Bones appear grossly intact. IMPRESSION: No acute process. ACT 112: Negative or not required by law. The above report was generated using voice recognition software. It may contain grammatical, syntax o r spelling errors. Electronically signed by: Jaleel Ash M.D. 06/28/2024 8:26 AM
[2024-06-28] MEDS: ASPIRIN 81 MG ECTAB PO SCH (09:37)
[2024-06-28] MEDS: GABAPENTIN 800 MG TAB PO SCH (09:37)
[2024-06-28] MEDS: buPROPion SR 150 MG TABCR PO SCH (09:37)
[2024-06-28] MEDS: ATORVASTATIN 40 MG TAB PO SCH (09:37)
[2024-06-28] MEDS: LINACLOTIDE 145 MCG CAPSULE PO SCH (09:38)
[2024-06-28] MEDS: TOPIRAMATE 100 MG TAB PO SCH (09:38)
[2024-06-28] MEDS: lamoTRIgine 100 MG TAB PO SCH (09:38)
--- NOTE | 2024-06-28 09:51 | Cardiology Consultation ---
Date of Consultation June 28, 2024 Assessment & Plan (1) Unstable angina pectoris: 48-year-old female presents with symptoms suggestive of unstable angina. High sensitive troponin negative x 2. Pain-free at present. Hemodynamically stable. EKG without acute ischemic changes. Patient had undergone an exercise stress cardiogram two days ago, with high risk findings suggestive of high risk left coronary system disease or even multivessel disease based on the size and extent of the stress-induced wall motion abnormality. Noted family history of premature heart disease, details unknown with her father having of congestive heart failure at the age of 41. 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 Continue medications including aspirin, atorvastatin. Patient is not a candidate for beta-catrachito as preexistent sinus bradycardia noted. She is not a candidate for an LYNETTE or ARB due to normal blood pressure. -Findings reviewed with patient and her spouse, [place]. Recommendation with regards to proceeding with invasive coronary angiography discussed with them. Patient elects to have the procedure performed at [facility]. Advance diet now. NPO after midnight for procedure on 06/29/24. Will hold heparin at 4 am. History of Present Illness Attending Physician: Cesar Lord DO History of Present Illness Moni Maria is a 48-year-old female seen in cardiology consultation per the request of Dr. Hinson Further evaluation of chest discomfort, with recent abnormal exercise stress echocardiogram. The patient has been following with outpatient cardiology at [facility] for issues including dizziness, sinus bradycardia, and intermittent chest discomfort that has waxed and waned over the last few months. 2 days ago on 06/26/2024 the patient underwent an exercise stress echocardiogram as an outpatient at [facility]. She notes that she did not feel any eloida chest discomfort with exercise but did feel recurrent lightheadedness. The resting left ventricular wall motion was normal, however postexercise she was found to have a large anterior, anteroseptal, and apical wall motion abnormality consistent with ischemia in this territory. She was counseled with regards to the results of the test and the need for follow-up. She received instructions that should she have residual chest discomfort she was to seek emergency room care. In the meantime she was placed on medication including aspirin and atorvastatin. Patient states that in the evening after her stress echocardiogram she woke up from sleep at 12:30 AM with left-sided chest discomfort. This improved during the day yesterday, but came back again. During my assessment she was comfortable and chest pain-free, but did note a vague sense of right-sided chest discomfort about an hour ago this morning. Telemetry reveals sinus rhythm in the 60s without significant bradycardia or tachycardia overnight last night and thus far this morning. 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 She believes that he had heart surgery 2 or 3 x 1 of which was for a surgical aortic valve replacement. She does not know the details otherwise The patient's mother is alive at the age of 69 with no issues of heart disease She has a brother and a sister both either from have a history of heart disease. Social History: The patient works at [email or web address]. She is and lives with her , Ray, and adult son She quit cigarette smoking 3 to 4 years ago, she continues vaping however Allergies Allergy/AdvReac Type Severity Reaction Status Date / Time hydrocodone AdvReac Mild SICK TO Verified 04/20/20 12:44 STOMACH AND HEADACHE tramadol AdvReac Mild UPSET Verified 04/20/20 12:44 STOMACH Home Medications Medication Instructions Recorded Confirmed Type albuterol sulfate 90 mcg/actuation 2 puff inhalation Q4H PRN sob 06/28/24 06/28/24 History aerosol inhaler (Ventolin HFA) aspirin 81 mg tablet,delayed 81 mg PO DAILY 06/28/24 06/28/24 History release atorvastatin 40 mg tablet 40 mg PO DAILY 06/28/24 06/28/24 History bupropion HCl 150 mg tablet,12 hr 150 mg PO DAILY 06/28/24 06/28/24 History sustained-release gabapentin 800 mg tablet 800 mg PO TID 06/28/24 06/28/24 History hydroxychloroquine 200 mg tablet 400 mg PO HS 06/28/24 06/28/24 History (Plaquenil) lamotrigine 200 mg tablet 300 mg PO DAILY 06/28/24 06/28/24 History (Lamictal) linaclotide 145 mcg capsule 145 mcg PO DAILY 06/28/24 06/28/24 History (Linzess) meloxicam 15 mg tablet 15 mg PO DAILY PRN Pain 06/28/24 06/28/24 History nitroglycerin 0.4 mg sublingual 0.4 mg sublingual UD chest pain 06/28/24 06/28/24 History tablet (Nitrostat) topiramate 100 mg tablet (Topamax) 100 mg PO BID 06/28/24 06/28/24 History ziprasidone HCl 60 mg capsule 60 mg PO DAILY 06/28/24 06/28/24 History (Geodon) Patient History Medical History Chronic back pain GERD (gastroesophageal reflux disease) Jaw clicking Bipolar disorder Anxiety and depression Peripheral neuropathy BLE Hypertension Surgical History Family history of reaction to anesthesia FATHER-SLOW TO WAKE UP History of gynecologic surgery HYMENECTOMY History of ankle surgery LEFT History of tooth extraction History of laryngoscopy BENIGN Family History Grandmother (Paternal) Family history of diabetes mellitus Grandmother (Maternal) Family history of diabetes mellitus Social History Smoking Status: Current every day smoker Tobacco Type: E-cigarettes / Vaping Cigarettes Per Day: 1 PPD; Second Hand Exposure: Yes; Do You Dip or Chew Tobacco: No; Hx Alcohol Use: No Hx Substance Use: No Preferred Language: Italian Communication Ability: Effective Retail Client Solutions Consultant Required: No Beliefs That Will Affect Care: None marital status: Current Living Situation: Spouse and Other Current Living Situation Comment: Lives with and son current occupational status: employed Other Information That Helps Us Care for You: Yes Feels Safe at Home: Yes Safety Concerns: Feels Safe At This Time Assistive Devices: None Review of Systems Review of Systems: All systems reviewed & are unremarkable except as noted in HPI & below Physical Exam Physical Exam: General: no acute distress and stated age Eyes: conjunctiva are pink and non-injected, sclera clear Neck: normal jugular venous pulse, no hepatojugular reflux Chest: normal shape and normal respiratory effort Lungs: clear to auscultation and percussion Cardiac Exam: - regular heart sounds, no murmurs, rubs, or gallops, no jugular venous distention 2+ Radial pulses bilaterally Abdomen: Not examined Musculoskeletal: no gait disturbance, no weakness Extremities: no edema and no cyanosis Neuro:awake, conversant, follows commands, no focal motor deficits Psych: appropriate affect and insight. Results & Data Vital Signs (Past 12 Hours) Vital Signs Temp Pulse Pulse Resp BP BP Pulse Ox 06/28/24 07:41 36.5 C 54 L 18 105/67 99 06/28/24 05:35 36.6 C 51 L 16 128/84 98 06/28/24 05:07 36.6 C 65 20 123/84 100 06/28/24 04:00 51 L 18 122/74 100 06/28/24 01:59 56 L 18 100 06/28/24 01:59 59 L 18 127/91 100 06/28/24 01:59 100 06/28/24 01:59 58 L 06/28/24 01:45 36.7 C 67 18 144/102 H 99 O2 Del Method 06/28/24 07:41 Room Air 06/28/24 05:35 Room Air 06/28/24 05:07 Room Air 06/28/24 04:00 Room Air 06/28/24 01:59 Room Air 06/28/24 01:59 Room Air 06/28/24 01:59 Room Air 06/28/24 01:59 06/28/24 01:45 Room Air Laboratory Results Cardiac Enzymes 06/28/24 06/28/24 Range/Units 01:59 06:56 AST 14 (13-39) U/L Troponin I High Sens 3.9 3.0 (0-14) pg/ml CBC 06/28/24 06/28/24 Range/Units 01:59 06:56 WBC 5.61 4.71 L (4.8-10.8) K/ul RBC 5.16 4.44 (4.20-5.40) M/uL Hgb 15.4 13.4 (12.0-16.0) g/dl Hct 46.1 39.8 (37.0-47.0) % Plt Count 308 257 (130-400) K/uL Neut # (Auto) 3.14 2.82 (1.40-6.50) K/uL Lymph # (Auto) 1.39 0.91 L (1.20-3.40) K/uL [place] # (Auto) 0.70 H 0.66 H (0.11-0.59) K/uL Eos # (Auto) 0.26 0.22 (0.00-0.50) K/uL Baso # (Auto) 0.08 0.06 (0.00-0.20) K/uL Comprehensive Metabolic Panel 06/28/24 06/28/24 Range/Units 01:59 06:56 Sodium 140 141 (136-145) mmol/L Potassium 3.3 L 4.1 D (3.5-5.1) mmol/L Chloride 109 H 113 H (98-107) mmol/L Carbon Dioxide 24 24 (21-32) mmol/L BUN 14 11 (6-23) mg/dl Creatinine 0.73 0.64 (0.6-1.2) mg/dl Glucose 83 92 (70-99(Fasting)) mg/dl Calcium 8.8 8.2 L (8.6-10.3) mg/dl AST 14 (13-39) U/L ALT 10 (7-52) U/L Alkaline Phosphatase 86 (34-104) U/L Total Protein 7.1 (6.0-8.3) gm/dl Albumin 4.4 (3.4-5.0) gm/dl Intake and Output 06/27/24 06/28/24 06/28/24 22:59 06:59 14:59 Other: # Unmeasured Voids 1 Weight 85.9 kg Weight Measurement Method Standing Scale Diagnostic Findings EKG performed 06/28/2024 and interpret independently: Sinus rhythm at 62 bpm, normal EKG, compared to the previous dated 04/29/2024 the corrected QT interval has improved from 484 ms to 460 ms Summary of exercise stress echocardiogram performed 06/26/2024 at [facility] [place]: Stress: The stress echo is positive for inducible ischemia. There is a large sized apical, anteroseptal, anterior, and lateral wall motion abnormality with hypokinesis to akinesis of the segments. The left ventricular ejection fraction decreases with stress. The stress EKG response showed no evidence of ischemia. The diagnostic accuracy of the test is limited by low work load. No arrhythmias were noted with stress. Sinus rhythm was noted at rest. Baseline ECG was normal. The stress test was terminated due to fatigue. Patient experienced dizziness, lightheadedness, and SOb at peak stress. Symptoms completely resolved by 5 minutes post stress. Symptoms noted during stress are similar to the patient's referral symptoms. Herat rate response to stress was accelerated. Blood pressure response to exercise was normal. Exercise capacity is below average completing 5 minutes 43 seconds on a Contreras protocol, 6 METS. Rest: The qualitative LV ejection fraction is 60-64% (normal). The right ventricular cavity size is normal. The right ventricular systolic function is qualitatively normal. No significant valvular disease is present. Summary of recent complete resting echocardiogram performed 05/21/2024, [facility]: Calculated LV ejection Fraction = 66% (three dimensional volumes). The LV wall thickness is normal. The right ventricular cavity size and function is normal There is no significant aortic regurgitation. Mild mitral regurgitation is present. Mild tricuspid regurgitation is present. No pericardial effusion is noted. Normal IVC size and collapsability with inspiration indicates a normal right atrial pressure of 3 mmHg. The estimated pulmonary artery systolic pressure is 21mm Hg.
[2024-06-28] MEDS: HEPARIN SODIUM/DEXTROSE 25,000 UNITS/500 ML BAG IV SCH (10:24)
[2024-06-28] MEDS: HEPARIN SOD (PORCINE) 1000 UNIT/ML IV ONE (10:24)
[2024-06-28] MEDS: Heparin IV Adult Wt-Based Standard w/ INITIAL Bolus Protocol IV STA (10:24)
[2024-06-28 10:55] LABS: ANTI-Xa, UFH(UnfractionatedHep < 0.10 IU/ml (0.3-0.7); Partial Thromboplastin Time 27 Seconds (21-31); Prothrombin Time 10.9 Seconds (9.0-12.0)
--- NOTE | 2024-06-28 11:39 | Communication Note ---
Date of Service: June 28, 2024 Patient seen and evaluated. Chest pain essentially resolved. Troponins negative x 2 sets, additional diagnostics reviewed Communication with cardiology team. Plan to proceed with cardiac catheterization tomorrow. Further plans of care depending the results of cardiac cath. Continue heparin. hold per cardiology timing Nitropaste for angina control
[2024-06-28] MEDS: NITROGLYCERIN 2% OINTMENT 30GM TUBE EXT SCH (12:28)
--- NOTE | 2024-06-28 12:32 | Electrocardiogram Report ---
Test Reason : Blood Pressure : */* mmHG Vent. Rate : 62 BPM Atrial Rate : 62 BPM P-R Int : 172 ms QRS Dur : 98 ms QT Int : 454 ms P-R-T Axes : 40 29 51 degrees QTcB Int : 460 ms Normal sinus rhythm Normal ECG When compared with ECG of 29-Apr-2024 13:04, Nonspecific T wave abnormality no longer evident in Anterior leads Confirmed by Patricio Mckeon ([id number]) on 06/28/2024 12:31:51 PM Referred By: Confirmed By: Patricio Mckeon
[2024-06-28] MEDS: ACETAMINOPHEN 325 MG TAB PO PRN (14:44)
[2024-06-28 17:54] LABS: ANTI-Xa, UFH(UnfractionatedHep 0.71 IU/ml (0.3-0.7)
[2024-06-28] MEDS: HYDROXYCHLOROQUINE SULFATE 200 MG TAB PO SCH (19:51)
[2024-06-29 01:17] LABS: ANTI-Xa, UFH(UnfractionatedHep 0.48 IU/ml (0.3-0.7)
--- NOTE | 2024-06-29 07:48 | Pre Anesthesia Assessment ---
Date of Service June 29, 2024 Pre Sedation Assessment Vital Signs Temp Pulse Pulse Resp BP Pulse Ox O2 Del Method 06/29/24 05:47 100/64 06/29/24 03:15 36.8 C 58 L 16 90/57 L 97 Room Air 06/28/24 23:26 36.9 C 64 16 97/63 L 98 Room Air 06/28/24 21:55 61 06/28/24 20:19 36.5 C 64 16 101/67 96 Room Air 06/28/24 15:26 36.8 C 65 18 106/61 98 Room Air 06/28/24 11:25 36.5 C 56 L 18 128/78 100 Room Air Cardiovascular RRR, no murmur, no edema Respiratory normal respiratory effort, lungs clear to auscultation Pre-Sedation Airway Assessment Smoking Status: Current every day smoker mallampati 2 ASA 3 Notes The planned sedation has been discussed with the patient. Informed Consent was obtained. I have identified the patient, determined the appropriateness of sedation and have assessed the patient immediately prior to the procedure. All medicine(s) and interventions are by my order.
--- NOTE | 2024-06-29 08:17 | Cardiology Progress Note ---
Date of Service June 29, 2024 Assessment & Plan (1) Substernal chest pain: (2) Unstable angina pectoris: Plan 48-year-old female presents with symptoms suggestive of unstable angina. * High sensitive troponin negative x 2. * Recent exercise stress cardiogram two days ago, with high risk findings suggestive of high risk left coronary system disease or even multivessel disease based on the size and extent of the stress-induced wall motion abnormality. * + family history of premature heart disease, details unknown with her father having of congestive heart failure at the age of 41. 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 * Coronary Angiography - no significant epicardial CAD - + Significant radial artery spasm noted Reviewed Presentation: * Episodes of intense fatigue at times with chest pressure/tightening * Patient experienced a similar episode during her stress test - that was positive + with several WMA * + Vaping * + Recently started on Statin * No significant ETOH * + Lupus - dermatologic manifestations only - no joint pain, new rash, hematologic manifestations or known lung findings * Had experienced episode of chest discomfort in the past - responded to nitrates (+ gave her an intense CLEMONS) * No new herbals * No new OTC meds Plans: * Patient may have microvascular disease or coronary spasm * LDL 104 in 03/2024 * Continue Lipitor 40 mg po per day * Plans to decrease Vaping (to hopefully OFF) * Starting Norvasc 2.5 mg po per day * Consider Cardiac Rehab (Virtual) * No immediate right wrist/Radial Artery complications noted * Follow up with Cardiology at [facility] * Please call back with any additional questions Hansel Oates Admission and Anticipated Discharge Date Admission Date: June 28, 2024 Subjective Events Overnight: * None reported * No Telemetry Events Subjective: * No complaints Review of Systems Review of Systems: All systems reviewed & are unremarkable except as noted in HPI & below Physical Exam Physical Exam: Slightly overweight No elevation in JVP S1S2 CTA B Right Radial 2/2 No C/C/E Warm and perfusing Results & Data Vital Signs (Past 12 Hours) Vital Signs Temp Pulse Pulse Resp BP Pulse Ox O2 Del Method 06/29/24 05:47 100/64 06/29/24 03:15 36.8 C 58 L 16 90/57 L 97 Room Air 06/28/24 23:26 36.9 C 64 16 97/63 L 98 Room Air 06/28/24 21:55 61 06/28/24 20:19 36.5 C 64 16 101/67 96 Room Air Laboratory Results Cardiac Enzymes 06/28/24 06/28/24 Range/Units 12:49 18:53 Troponin I High Sens 2.7 3.3 (0-14) pg/ml Coagulation 06/28/24 Range/Units 10:11 PT 10.9 (9.0-12.0) Seconds APTT 27 (21-31) Seconds Intake and Output 06/28/24 06/29/24 06/29/24 22:59 06:59 14:59 Intake Total 337.267 / 1056.933 469.666 / 1056.933 Balance 337.267 / 1056.933 469.666 / 1056.933 Intake: IV 237.267 / 466.933 229.666 / 466.933 Heparin Sodium/Dextrose 25,000 237.267 / 466.933 229.666 / 466.933 units In 500 ml @ 1,350 UNITS/ HR 27 mls/hr IV .[id number] [facility] Rx #:[id number] Oral 100 / 590 240 / 590 Other: # Unmeasured Voids 1 1 Weight 89.5 kg Weight Measurement Method Built in [facility] Diagnostic Findings Coronary Angiography: 06-29-2024 Dominant: Right Left Main (% Stenosis): Normal LAD (% Stenosis): Normal D1 (% Stenosis): Normal Circumflex (% Stenosis): Normal OM1 (% Stenosis): Normal L PL1 (% Stenosis): Normal RCA (% Stenosis): Normal R PDA (% Stenosis): Normal R PL1 (% Stenosis): Normal + Vasospasm of radial artery EKG - WNL Stress ECHO - 06-26-2024 Large Sized apical, anteroseptal, anterior and lateral WMA with hypo to akinesis of segments LVEF decreased with stress LVEF 60-65% at rest with no valvular disease Medications Administered Current Inpatient Medications Acetaminophen (Acetaminophen 325 Mg Tab) 650 mg PO Q4H PRN PRN Reason: Pain or Fever Stop: 07/28/24 05:05 Last Admin: 06/29/24 05:43 Dose: 650 mg Albuterol (Albuterol Hfa 8 Gm Inhaler) 2 puffs INH Q4H PRN PRN Reason: sob Stop: 07/28/24 05:05 Aspirin (Aspirin 81 Mg Ectab) 81 mg PO DAILY [facility] Stop: 07/28/24 08:59 Last Admin: 06/28/24 09:37 Dose: 81 mg Atorvastatin Calcium (Atorvastatin 40 Mg Tab) 40 mg PO DAILY [facility] Stop: 07/28/24 08:59 Last Admin: 06/28/24 09:37 Dose: 40 mg Bupropion HCl (Bupropion Sr 150 Mg Tabcr) 150 mg PO DAILY [facility] Stop: 07/28/24 08:59 Last Admin: 06/28/24 09:37 Dose: 150 mg Gabapentin (Gabapentin 800 Mg Tab) 800 mg PO TID [facility] Stop: 07/28/24 08:59 Last Admin: 06/28/24 19:50 Dose: 800 mg Hydroxychloroquine Sulfate (Hydroxychloroquine Sulfate 200 Mg Tab) 400 mg PO HS [facility] Stop: 07/28/24 20:59 Last Admin: 06/28/24 19:51 Dose: 400 mg Heparin Sodium/Dextrose (Heparin Sodium/Dextrose) 25,000 units in 500 mls @ 0 mls/hr IV .Q0M [facility]; Protocol Stop: 07/28/24 09:59 Last Titration: 06/29/24 04:04 Dose: 0 units/hr, 0 mls/hr Lamotrigine (Lamotrigine 100 Mg Tab) 300 mg PO DAILY [facility]; Protocol Stop: 07/28/24 08:59 Last Admin: 06/28/24 09:38 Dose: 300 mg Linaclotide (Linaclotide 145 Mcg Capsule) 145 mcg PO DAILY [facility] Stop: 07/28/24 08:59 Last Admin: 06/28/24 09:38 Dose: 145 mcg Nitroglycerin (Nitroglycerin Sl 0.4 Mg/Tab Tab) 0.4 mg SL Q5M PRN PRN Reason: Chest Pain Stop: 07/28/24 05:05 Nitroglycerin (Nitroglycerin 2% Ointment 30gm Tube) 0.5 inch EXT Q6H [facility] Stop: 07/28/24 11:44 Last Admin: 06/29/24 05:48 Dose: 0.5 inch Polyethylene Glycol (Polyethylene (Miralax) 17 Gm Pack) 17 gm PO DAILY PRN PRN Reason: Constipation Stop: 07/28/24 05:05 Topiramate (Topiramate 100 Mg Tab) 100 mg PO BID [facility] Stop: 07/28/24 08:59 Last Admin: 06/28/24 19:51 Dose: 100 mg Ziprasidone (Ziprasidone Hcl 20 Mg Cap) 60 mg PO DAILY [facility] Stop: 07/28/24 08:59 Last Admin: 06/28/24 09:37 Dose: 60 mg
[2024-06-29] MEDS: NITROGLYCERIN/D5W 100MCG/ML 20ML SYR ONE (08:43)
[2024-06-29] MEDS: MIDAZOLAM HCL 1 MG/ML 2ML VIAL ONE (08:43)
[2024-06-29] MEDS: OPTIRAY 350 ONE (08:43)
[2024-06-29] MEDS: HEPARIN (PORCINE) 1000 UNIT/ML 10 ML (CATH LAB USE ONLY) ONE (08:43)
[2024-06-29] MEDS: niCARdipine HCL INJ 2.5 MG/ML 10 ML AMP ONE (08:43)
[2024-06-29] MEDS: fentaNYL citrate PF 100 MCG/2 ML VIAL ONE (08:43)
--- NOTE | 2024-06-29 08:46 | Post Anesthesia Assessment ---
Date of Service June 29, 2024 Post Sedation Assessment Vital Signs Temp Pulse Pulse Resp BP Pulse Ox O2 Del Method 06/29/24 05:47 100/64 06/29/24 03:15 36.8 C 58 L 16 90/57 L 97 Room Air 06/28/24 23:26 36.9 C 64 16 97/63 L 98 Room Air 06/28/24 21:55 61 06/28/24 20:19 36.5 C 64 16 101/67 96 Room Air 06/28/24 15:26 36.8 C 65 18 106/61 98 Room Air 06/28/24 11:25 36.5 C 56 L 18 128/78 100 Room Air Recovery Score Activity: Moves 4 extremities Respiration: Deep Breath/Cough Circulation: +/-20% PreAnes Value Consciousness: Fully Awake Oxygen Saturation: > 92% On Room Air Discharge Sedation Level of Care: Fast Track Phase II Post Sedation Plan On clinical assessment, the patient appears to have tolerated the sedation without complications. Patient is recovering as anticipated. Patient will continue to be monitored by nursing and may be discharged when sedation discharge criteria are met per below protocol. Upon Completions of procedure up to 15 minutes continue every 5 minute vital signs and the P.A.R. score; then discharge to a Phase I or Fast Track to Phase II per the following guidelines: * Discharge Patient to appropriate Phase II area if PAR is 8 or greater or return to pre- procedure baseline. The post - procedure orders will be as directed. * If PAR score is less than 8 or not return to pre-procedure baseline then patient will follow Phase I monitoring till PAR is reached for Phase II. The Phase I may be done in procedure room or may call to secure a Phase I area. * If naloxone or flumazenil are used for reversal, hold in Phase I for continued monitoring from when last reversal dose was given for a minimum of 60 minutes or longer pending the nurse and/or physician discretion of patient condition before discharge to Phase II. Please call the Sedation Physician to re-evaluate and complete post-note for discharge to Phase II area. Do NOT discharge from procedure sedation or Phase 1 until post- sedation evaluation note is complete by procedure /sedation MD Sedation Discharge Instructions to be given to the patient at discharge to home. [facility] [place] [facility] [place] Procedure Codes (Charges) Indication for Procedure Indication for procedure: unstable angina Sedation/Anesthesia Procedure 1: Sedation/Anesthesia: 15920 Mod Sedation by the same physician;Init15 Min Child Age 5 & Up (Initial 15 minutes, start time 0814) Total Sedation Time (minutes): 18 Procedure 2: Sedation/Anesthesia: 52159 Mod Sedation by the same physician; Ea [id number] Minutes (Additional 3 minutes, end 0832) Total Sedation Time (minutes): 18
[2024-06-29] MEDS: NITROGLYCERIN SL 0.4 MG/TAB TAB SL PRN (09:05)
[2024-06-29 09:33] VITALS: O2SAT 98
--- NOTE | 2024-06-29 10:00 | Cardiac Catheterization ---
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 Cardiac Status Clinical evaluation leading to the procedure CAD Presenation: Positive Stress Test and Unstable angina Anginal Classification: CCS III Heart Failure: No Cardiogenic Shock within 24 Hours: No Cardiac Arrest within 24 Hours: No Imaging Studies Past 6 Months: Yes Stress Echocardiogram: Yes - Positive Coronary Anatomy Dominant: Right Left Main (% Stenosis): Normal LAD (% Stenosis): Normal D1 (% Stenosis): Normal Circumflex (% Stenosis): Normal OM1 (% Stenosis): Normal L PL1 (% Stenosis): Normal RCA (% Stenosis): Normal R PDA (% Stenosis): Normal R PL1 (% Stenosis): Normal Diagnostic Physicians Name: Antonino Lara MD, PhD Closure Device Percutaneous Entry Location: Radial Closure Device: Radial Band Recommendations: Medical Therapy and/or Counseling Intraprocedure Events Significant Disection: No Perforation: No Cardiac Cath Procedure Full Procedure Date June 29, 2024 Pre-Procedure Diagnosis Pre-Procedure Diagnosis: Angina and Positive Stress Test AUC Score AUC Score: 07 Post-Procedure Diagnosis Post-Procedure Diagnosis: Normal Coronary Arteries Procedure(s) Performed Procedure(s) Performed: Coronary Angiography Social Work Manager Antonino Lara MD, PhD Estimated Blood Loss Estimated Blood Loss: 5 cc Medication(s) Medication(s): Fentanyl, Heparin, Lidocaine 1%, Nicardipine, Nitroglycerin and Versed Summary of Findings Brief description: Patient was brought to the cardiac catheterization suite where she was shaved and prepped in a sterile fashion. Sedated using IV Versed and fentanyl. Soft tissues of the right wrist were anesthetized using 2 mL of 1% Xylocaine. The right radial artery was accessed with a modified Seldinger technique and a 6 Burmese radial artery glide sheath was placed. Patient was provided antic oagulation with IV heparin and antispasmodics including nicardipine and nitroglycerin. Initial advancement of the catheter was over a 0.035 Wholey wire. Subsequent catheter exchanges were over a J-wire. Left coronary angiography in orthogonal views with a 5 Burmese [place] 4 diagnostic catheter. Right coronary angiography in orthogonal views a 5 Burmese [place] 4 diagnostic catheter. Diagnostic catheter was removed over the J-wire. Patient had severe bronchospasm requiring nitroglycerin and nicardipine. Radial artery sheath was removed. Hemostasis was obtained using a TR band. Patient remained hemodynamically stable and asymptomatic. She was returned to the recovery area. This ended the case. Coronary angiography findings: [id number] vessel bifurcating into LAD and circumflex. No angiographically evident disease. [id number] and transapical. Provides several large septals and a large branching first diagonal. There is a small second diagonal. There is no angiographically evident disease in the LAD or its branches. LCx-this is a large-caliber and nondominant. It travels in the AV groove. First OM is small and branching. Distally the vessel becomes a large multi branching posterolateral. The circumflex and its branches have no angiographically evident disease. RCA-this is large caliber and dominant. Bifurcates distally into a large PDA and a large branching posterior lateral. There is no angiographically evident disease in the RCA or its branches. Summary: 1. Normal epicardial coronary arteries 2. Significant arterial vasospasm in the right upper extremity. May suggest patient has coronary vasospasm not captured on this study. 3. Continue guideline directed medical therapy per primary measurement supervisor. 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 Any exceptions are noted below. [facility] Card Cath Procedure Codes Cardiac Catheterization Procedure 1: Cardiovascular Cath Procedures: 58336 Coronaries Moderate Sedation Procedure 1: Sedation/Anesthesia: 65179 Mod Sedation by the same physician;Init15 Min Child Age 5 & Up (Initial 15 minutes, start 0814) Procedure 2: Sedation/Anesthesia: 97700 Mod Sedation by the same physician; Ea [id number] Minutes (Additional 3 minutes, end time 0832) PG Care Time/CCT Total # of Minutes Spent Total Time Spent with Patient: Total time spent is greater than 50% in coordination of care (as documented) at patient's floor/unit and/or counseling patient:
[2024-06-29 10:56] VITALS: PULSE 67; RESP 18; TEMP 98.1
--- NOTE | 2024-06-29 12:03 | Hospitalist Progress Note ---
Date of Service June 29, 2024 Assessment & Plan (1) Chest pain: Plan: 48-year-old female with a past medical history significant for hypokalemia, hypertension, lichen sclerosus, adjustment disorder with depression mood, postlaminectomy syndrome, bipolar disorder, subcutaneous lupus erythematosus, recurrent UTIs, migraines and anxiety comes because of chest pain. Patient has history orthostatics and bradycardia and chest pains and seen by cardiology and hydrochlorothiazide was stopped and stress test was ordered. Stress test was completed on 06/26/2024. And the stress test showed significant abnormalities suggesting ischemia at peak exercise. Cardiology called patient and started on aspirin and statin and nitroglycerin as needed which she started taking today. Has follow-up appointment with cardiology next week and was advised to go to ER for any anginal symptoms. Patient states last couple of days she has not exerting herself. Tonight around 12:30 AM she woke up from sleep with left- sided chest pain 5/10 in severity. No radiation. The pain lasted for a half an hour and went away on its own. No shortness of breath. No nausea. No sweating. No dizziness. Currently resting comfortably and pain-free. Hemodynamically stable. Denies any headache. No blurred vision. No runny nose or sore throat. No cough. No earaches. No fevers. No abdominal pain. Normal bowel and bladder movements. No swelling in the legs. Chest pain Recent abnormal stress test EKG and initial troponin negative Will follow serial enzymes and repeat EKG-Unremarkable for any ACS No arrhythmias on monitor Status post cardiac cath with clean coronaries Appreciate cardiology input and recommendation Chest pain is secondary to coronary spasm Likely discharge this afternoon Hypertension Recent hydrochlorothiazide was stopped for orthostatic hypotension Will monitor Blood pressure remains on the lower side at 109/71 History of subcutaneous lupus erythematosus On Plaquenil Adjustment disorder with depressive mood Bipolar disorder Anxiety Bupropion, Lamictal and Geodon Migraines On Topamax DVT prophylaxis SCDs Disposition Telemetry Full code. Likely discharge this afternoon Admission and Anticipated Discharge Date Admission Date: June 28, 2024 Subjective 06/29/2024 The patient was seen and examined in telemetry unit She has been feeling much better and denies any more chest pain She is status post negative cardiac cath She will be going home this afternoon Review of Systems Review of Systems: All systems reviewed and are unremarkable except as noted below Physical Exam Physical Exam: Lying in bed without any acute distress Constitutional: well developed and well nourished; not ill appearing Eyes: PERRL, conjunctivae normal, anicteric sclerae ENMT: external ear and nose normal, oropharynx normal Neck: trachea midline, no thyromegaly Respiratory: no respiratory distress Auscultation: lungs clear to auscultat ion bilaterally Cardiovascular: Rate/Rhythm: regular rate and regular rhythm; not tachycardic Heart Sounds: normal S1 and normal S2; no murmur Extremities: no edema Gastrointestinal (Abdomen): Inspection/Auscultation: normal bowel sounds; abdomen not distended Percussion/Palpation: abdomen soft; abdomen nontender Musculoskeletal: No acute arthritis involving any of the joint Neurologic: normal touch/pain/proprioception and moves all extremities; no focal motor deficits Psychiatric: A+Ox3, euthymic affect Lymphatic: no cervical or axillary lymphadenopathy Results & Data Results & Data Vital Signs (Past 12 Hours) Vital Signs Temp Pulse Resp BP Pulse Ox O2 Del Method 06/29/24 10:55 36.7 C 67 18 109/71 98 Room Air 06/29/24 10:00 Room Air 06/29/24 09:32 36.6 C 56 L 16 105/70 98 Room Air 06/29/24 08:55 53 L 16 119/63 100 Room Air 06/29/24 08:40 54 L 16 123/70 97 Room Air 06/29/24 05:47 100/64 06/29/24 03:15 36.8 C 58 L 16 90/57 L 97 Room Air Medications Administered Current Inpatient Medications Acetaminophen (Acetaminophen 325 Mg Tab) 650 mg PO Q4H PRN PRN Reason: Pain or Fever Stop: 07/28/24 05:05 Last Admin: 06/29/24 05:43 Dose: 650 mg Albuterol (Albuterol Hfa 8 Gm Inhaler) 2 puffs INH Q4H PRN PRN Reason: sob Stop: 07/28/24 05:05 Aspirin (Aspirin 81 Mg Ectab) 81 mg PO DAILY [facility] Stop: 07/28/24 08:59 Last Admin: 06/29/24 09:23 Dose: 81 mg Atorvastatin Calcium (Atorvastatin 40 Mg Tab) 40 mg PO DAILY [facility] Stop: 07/28/24 08:59 Last Admin: 06/29/24 09:22 Dose: 40 mg Bupropion HCl (Bupropion Sr 150 Mg Tabcr) 150 mg PO DAILY [facility] Stop: 07/28/24 08:59 Last Admin: 06/29/24 09:22 Dose: 150 mg Gabapentin (Gabapentin 800 Mg Tab) 800 mg PO TID [facility] Stop: 07/28/24 08:59 Last Admin: 06/29/24 09:22 Dose: 800 mg Hydroxychloroquine Sulfate (Hydroxychloroquine Sulfate 200 Mg Tab) 400 mg PO HS [facility] Stop: 07/28/24 20:59 Last Admin: 06/28/24 19:51 Dose: 400 mg Heparin Sodium/Dextrose (Heparin Sodium/Dextrose) 25,000 units in 500 mls @ 0 mls/hr IV .Q0M [facility]; Protocol Stop: 07/28/24 09:59 Last Titration: 06/29/24 04:04 Dose: 0 units/hr, 0 mls/hr Lamotrigine (Lamotrigine 100 Mg Tab) 300 mg PO DAILY [facility]; Protocol Stop: 07/28/24 08:59 Last Admin: 06/29/24 09:23 Dose: 300 mg Linaclotide (Linaclotide 145 Mcg Capsule) 145 mcg PO DAILY [facility] Stop: 07/28/24 08:59 Last Admin: 06/29/24 09:24 Dose: 145 mcg Nitroglycerin (Nitroglycerin Sl 0.4 Mg/Tab Tab) 0.4 mg SL Q5M PRN PRN Reason: Chest Pain Stop: 07/28/24 05:05 Last Admin: 06/29/24 09:05 Dose: 0.4 mg Nitroglycerin (Nitroglycerin 2% Ointment 30gm Tube) 0.5 inch EXT Q6H [facility] Stop: 07/28/24 11:44 Last Admin: 06/29/24 05:48 Dose: 0.5 inch Polyethylene Glycol (Polyethylene (Miralax) 17 Gm Pack) 17 gm PO DAILY PRN PRN Reason: Constipation Stop: 07/28/24 05:05 Topiramate (Topiramate 100 Mg Tab) 100 mg PO BID [facility] Stop: 07/28/24 08:59 Last Admin: 06/29/24 09:21 Dose: 100 mg Ziprasidone (Ziprasidone Hcl 20 Mg Cap) 60 mg PO DAILY [facility] Stop: 07/28/24 08:59 Last Admin: 06/29/24 09:24 Dose: 60 mg
--- NOTE | 2024-06-29 12:22 | Electrocardiogram Report ---
Test Reason : Blood Pressure : */* mmHG Vent. Rate : 54 BPM Atrial Rate : 54 BPM P-R Int : 186 ms QRS Dur : 88 ms QT Int : 468 ms P-R-T Axes : 60 48 67 degrees QTcB Int : 443 ms Sinus bradycardia Otherwise normal ECG When compared with ECG of 28-Jun-2024 01:52, No significant change was found Confirmed by Jesus Monsivais ([id number] on 06/29/2024 12:22:11 PM Referred By: REFERRED SELF Confirmed By: Jesus Monsivais
[2024-06-29 14:21] VITALS: BP 105/67
[2024-06-29] MEDS: amLODIPine BESYLATE 5 MG TAB PO ONE (14:37)
--- NOTE | 2024-06-29 16:43 | Discharge Summary ---
Date of Service June 29, 2024 Admission HPI Per Admitting Provider 48-year-old female with a past medical history significant for hypokalemia, hypertension, lichen sclerosus, adjustment disorder with depression mood, postlaminectomy syndrome, bipolar disorder, subcutaneous lupus erythematosus, recurrent UTIs, migraines and anxiety comes because of chest pain. Patient has history orthostatics and bradycardia and chest pains and seen by cardiology and hydrochlorothiazide was stopped and stress test was ordered. Stress test was completed on 06/26/2024. And the stress test showed significant abnormalities suggesting ischemia at peak exercise. Cardiology called patient and started on aspirin and statin and nitroglycerin as needed which she started taking today. Has follow-up appointment with cardiology next week and was advised to go to ER for any anginal symptoms. Patient states last couple of days she has not exerting herself. Tonight around 12:30 AM she woke up from sleep with left- sided chest pain 5/10 in severity. No radiation. The pain lasted for a half an hour and went away on its own. No shortness of breath. No nausea. No sweating. No dizziness. Currently resting comfortably and pain-free. Hemodynamically stable. Denies any headache. No blurred vision. No runny nose or sore throat. No cough. No earaches. No fevers. No abdominal pain. Normal bowel and bladder movements. No swelling in the legs. Past medical history. As mentioned above Past surgical history. Colonoscopy. Cryocautery of cervix. Dilatation curettage. Diagnostic laparoscopy. Lumbar hemilaminectomy. Social history. . Quit smoking 2017. Vapes nicotine. Alcohol rare. No drug use. Family history. Father had heart disorder. Hodgkin's lymphoma. Maternal grandmother had breast cancer. Diabetes. Paternal grandmother had breast cancer. Diabetes. Admission Exam Per Admitting Provider Physical Exam: General- Not in distress. Head- atraumatic Eyes- PERRL. ENT- oropharynx clear Neck- supple, no JVD. Lungs- clear to auscultation no wheezing or crackles. Heart- regular rate and rhythm; no murmur, no gallop. Abdomen- normal bowel sounds, soft, nontender, no distension Extremities- no pretibial edema, no erythema seen Neuro- alert, oriented PERRL, EOMI; no facial palsy; no dysarthria; moves extremities Principal Diagnosis Chest pain likely secondary to coronary spasm, status post cardiac cath with clean coronaries Discharge Exam Lying in bed without any acute distress Constitutional well developed and well nourished; not ill appearing Eyes PERRL, conjunctivae normal, anicteric sclerae ENMT external ear and nose normal, oropharynx normal Neck trachea midline, no thyromegaly Respiratory no respiratory distress Auscultation: lungs clear to auscultation bilaterally Cardiovascular Rate/Rhythm: regular rate and regular rhythm; not tachycardic Heart Sounds: normal S1 and normal S2; no murmur Extremities: no edema Gastrointestinal (Abdomen) Inspection/Auscultation: normal bowel sounds; abdomen not distended Percussion/Palpation: abdomen soft; abdomen nontender Neurologic normal touch/pain/proprioception and moves all extremities; no focal motor deficits Psychiatric A+Ox3, euthymic affect Lymphatic no cervical or axillary lymphadenopathy Discharge Data Allergies Allergy/AdvReac Type Severity Reaction Status Date / Time hydrocodone AdvReac Mild SICK TO Verified 04/20/20 12:44 STOMACH AND HEADACHE tramadol AdvReac Mild UPSET Verified 04/20/20 12:44 STOMACH Consultations 06/28/24 03:26 ED Decision to Admit Stat 06/28/24 08:00 Consult Cardiology Routine Procedures Performed Operation Date: 06/29/24 08:00 Actual Procedures s Cineradiography w/Routine Exam - Antonino Lara MD, PhD p Cath, Coronaries ONLY (no LV) - Antonino Lara MD, PhD Ordered Studies 06/29/24 07:03 CL Cath Imgs for PACS use only Stat Hospital Course (1) Chest pain: 48-year-old female with a past medical history significant for hypokalemia, hypertension, lichen sclerosus, adjustment disorder with depression mood, postlaminectomy syndrome, bipolar disorder, subcutaneous lupus erythematosus, recurrent UTIs, migraines and anxiety comes because of chest pain. Patient has history orthostatics and bradycardia and chest pains and seen by cardiology and hydrochlorothiazide was stopped and stress test was ordered. Stress test was completed on 06/26/2024. And the stress test showed significant abnormalities suggesting ischemia at peak exercise. Cardiology called patient and started on aspirin and statin and nitroglycerin as needed which she started taking today. Has follow-up appointment with cardiology next week and was advised to go to ER for any anginal symptoms. Patient states last couple of days she has not exerting herself. Tonight around 12:30 AM she woke up from sleep with left- sided chest pain 5/10 in severity. No radiation. The pain lasted for a half an hour and went away on its own. No shortness of breath. No nausea. No sweating. No dizziness. Currently resting comfortably and pain-free. Hemodynamically stable. Denies any headache. No blurred vision. No runny nose or sore throat. No cough. No earaches. No fevers. No abdominal pain. Normal bowel and bladder movements. No swelling in the legs. Chest pain Recent abnormal stress test EKG and initial troponin negative Will follow serial enzymes and repeat EKG-Unremarkable for any ACS No arrhythmias on monitor Status post cardiac cath with clean coronaries Appreciate cardiology input and recommendation Chest pain is secondary to coronary spasm Likely discharge this afternoon Hypertension Recent hydrochlorothiazide was stopped for orthostatic hypotension Will monitor Blood pressure remains on the lower side at 109/71 History of subcutaneous lupus erythematosus On Plaquenil Adjustment disorder with depressive mood Bipolar disorder Anxiety Bupropion, Lamictal and Geodon Migraines On Topamax DVT prophylaxis SCDs Disposition Telemetry Full code. Likely discharge this afternoon Total Time Total Time Spent Total Time Spent (In Minutes): 40 minutes Discharge Plan Discharge Items Patient Disposition: Home - Self-Care Reason For Visit: CHEST PAIN Discharge Diagnosis: Chest pain likely secondary to coronary spasm, status post cardiac cath with clean coronaries Condition on Discharge: Good Activity: Resume your previous activity Non-emergency contact: Primary Care Provider Call non-emergency contact if: you have any medication questions and your symptoms worsen Follow-up/Referrals: Akaknsha Parrish PA-C [Primary Care Provider] - (Date & Time 07/02/2024 9:20 AM Provider Akanksha Parrish PA-C [facility] ) Diet: Heart Healthy Addtl Attending Provider Instructions: Please take precautions to avoid falls Take your medications as advised-Norvasc/amlodipine 2.5 mg p.o. has been added Advised to discontinue vaping Please keep appointments with the healthcare providers Pending Studies at Discharge: No Stand-Alone Forms: My [employer], Smoking Cessation Medications and DC Order Prescriptions: New amlodipine 2.5 mg tablet 2.5 mg PO DAILY Qty: 30 0RF Continued atorvastatin 40 mg Tablet 40 mg PO DAILY bupropion HCl 150 mg Tablet Sustained-Release 12 Hr 150 mg PO DAILY lamotrigine [Lamictal] 200 mg Tablet 300 mg PO DAILY meloxicam 15 mg Tablet 15 mg PO DAILY PRN (Reason: Pain) aspirin 81 mg Tablet,Delayed Release (Dr/Ec) 81 mg PO DAILY gabapentin 800 mg Tablet 800 mg PO TID nitroglycerin [Nitrostat] 0.4 mg Tablet, Sublingual 0.4 mg sublingual UD Rx Instructions: 0.4mg sl prn chest pain x3 q min hydroxychloroquine [Plaquenil] 200 mg Tablet 400 mg PO HS albuterol sulfate [Ventolin HFA] 90 mcg/actuation Hfa Aerosol Inhaler 2 puff INHALATION Q4H PRN (Reason: sob) ziprasidone HCl [Geodon] 60 mg Capsule 60 mg PO DAILY topiramate [Topamax] 100 mg Tablet 100 mg PO BID Linzess 145 mcg Capsule 145 mcg PO DAILY Discharge Orders: Discharge Order (Routine); Ordered 06/29/24 Ordered By: Bravo Hammond Admission Data Admit Date/Time: 06/28/24 04:31 Attending Provider: Bravo Hammond Admit Provider: Manyn Hinson Primary Care Provider: Akanksha Parrish Other Providers: Manny Hinson; Cesar Lord Other Interventions: Discharge Summary Assessment (RN) Last Done: 06/29/24 14:20
== END 2024-06-29 15:16 | disposition home or self-care (01) ==
LOC: ED 01:39 → 4W 04:31 → INTOOBSV 04:31 → SUATTDRO 04:31 → 4W 04:48
PROC: CLB.CCO (2024-06-29 08:00)